=== PATIENT | male | born 1965 | race American Indian/Alaskan Native ===

== ENCOUNTER 2017-12-28 17:59 | Inpatient (IN) | payer BC ==
[2017-12-28 18:27] VITALS: BMI 36.3
[2017-12-28] MEDS ORDERED: Sodium Chloride 0.9% 2,000 ML IV ONE (18:27)
[2017-12-28 18:45] LABS: BASO % 0.2 % (0.0-2.0); EOS # 0.1 K/uL (0.0-0.7); EOS % 0.4 % (0.0-4.0); HEMOGLOBIN 17.4 g/dL (12.0-18.0); LYMPH # 0.8 K/uL (1.0-4.3); MEAN CORPUSCULAR HEMOGLOBIN 30.8 pg (27.0-31.0); MEAN CORPUSCULAR HGB CONC 33.5 g/dL (33.0-37.0); MEAN PLATELET VOLUME 8.6 fL (7.2-11.7); MONO # 1.2 K/uL (0.0-0.8); NEUT # 14.5 K/uL (1.8-7.0); NEUT % 87.4 % (50.0-75.0); PLATELET COUNT 404 K/uL (130-400); RBC 5.63 Mil/uL (4.40-5.90); RED CELL DISTRIBUTION WIDTH 13.6 % (11.5-14.5); WHITE BLOOD COUNT 16.6 K/uL (4.8-10.8)
[2017-12-28 18:57] LABS: ALB/GLOB RATIO 1.3 (1.0-2.1); ALBUMIN 4.7 g/dL (3.5-5.0); CALCIUM 10.1 mg/dl (8.6-10.4)
--- NOTE | 2017-12-28 19:04 | C.PDOC ---
History Of Present Illness 52yo male, with history of epigastric hernia, presents to ED for evaluation stating his hernia "popped out" 4 days ago and he has been unable to reduce it at home. He also reports he started vomiting 4 days ago. Patient denies any fever, chills, diarrhea, weakness, and offers no other medical complaints. Time Seen by Provider: 12/28/17 18:12 Chief Complaint (Nursing): GI Problem History Per: Patient History/Exam Limitations: no limitations Onset/Duration Of Symptoms: Days (4) Current Symptoms Are (Timing): Still Present Location Of Pain/Discomfort: Epigastric Quality Of Discomfort: "Pain" Associated Symptoms: Vomiting. denies: Fever, Chills, Diarrhea Past Medical History Reviewed: Historical Data, Nursing Documentation, Vital Signs Vital Signs: Last Vital Signs Temp 98.1 F 12/28/17 18:22 Pulse 102 H 12/28/17 18:41 Resp 20 12/28/17 18:41 BP 116/65 12/28/17 20:04 Pulse Ox 94 L 12/28/17 19:47 - Medical History PMH: HTN Surgical History: No Surg Hx Family History: States: No Known Family Hx - Social History Hx Alcohol Use: No Hx Substance Use: No Review Of Systems Except As Marked, All Systems Reviewed And Found Negative. Constitutional: Negative for: Fever, Chills Cardiovascular: Negative for: Chest Pain Respiratory: Negative for: Shortness of Breath Gastrointestinal: Positive for: Vomiting, Abdominal Pain Physical Exam - Physical Exam Appears: Non-toxic Skin: Warm, Dry Head: Atraumatic, Normacephalic Eye(s): bilateral: Normal Inspection, PERRL Oral Mucosa: Moist Neck: Normal ROM, Supple Chest: Symmetrical Cardiovascular: Rhythm Regular (+tachycardic), Other (decreased blood pressure of 83/50) Respiratory: Normal Breath Sounds Gastrointestinal/Abdominal: Soft, Tenderness (epigastric tenderness), No Mass, No Guarding, No Rebound, Hernia (epigastric hernia, non-reducible) Extremity: Normal ROM Neurological/Psych: Oriented x3 ED Course And Treatment - Laboratory Results Result Diagrams: 12/28/17 18:39 12/28/17 18:39 Lab Interpretation: Abnormal (Elevated WBC 16.6, BUN 52, Cr 3.9, K+ 3.1,) O2 Sat by Pulse Oximetry: 94 (RA) Progress Note: Patient treated with IV fluids, Zosyn IV and NGT in ED. Obtained 700 ml of bilious gastric contents. - Physician Consult Information Outcome Of Conversation: Case discussed with Dr Hart and Dr Dumont. Patient to be admitted for incarcerated epigstric hernia with hypotension. Medical Decision Making Medical Decision Making: Plan: -- Labs -- IV Fluids -- XR Obstructive series -- CT Abdomen and Pelvis w/ PO & IV contrast [address] Dumont who states he will come to the ER and evaluated patient at bedside. 1914 NG tube successfully placed, 500ml bile removed. [address] Mayo, night time nanny concrete floor installer, who will come and evaluate patient in ER. Disposition - Disposition Disposition: HOSPITALIZED Disposition Time: 20:14 Condition: CRITICAL - POA Present On Arrival: None - Clinical Impression Clinical Impression: Incarcerated epigastric hernia - Scribe Statement The provider has reviewed the documentation as recorded by the Scribe (Sanna Ramos) Provider Attestation: All medical record entries made by the Scribe were at my direction and personally dictated by me. I have reviewed the chart and agree that the record accurately reflects my personal performance of the history, physical exam, medical decision making, and the department course for this patient. I have also personally directed, reviewed, and agree with the discharge instructions and disposition.
[2017-12-28] MEDS ORDERED: Piperacill/Tazo 2.25gm in Dex 2.25 GM/50 ML BAG IVPB STA (19:26)
[2017-12-28 20:23] LABS: INR 1.23 (0.92-1.08); PROTHROMBIN TIME 13.5 SECONDS (9.7-12.2)
[2017-12-28] MEDS ORDERED: Propofol 10 mg/ml Inj (20 ML) ONE (20:30)
[2017-12-28] MEDS ORDERED: Piperacillin/Tazobact 3.375 gm 100 ML IVPB ONE (20:40)
[2017-12-28 20:57] LABS: LYMPHOCYTE 8 % (20-40); MONOCYTE 9 % (0-10); NEUTROPHIL 83 % (50-75); TOTAL CELLS COUNTED 100
[2017-12-28 20:58] LABS: PLATELET ESTIMATE SLIGHTLY INCREASED (NORMAL)
[2017-12-28] MEDS ORDERED: Phenylephrine 10 mg/ml Inj ONE (21:08)
[2017-12-28] MEDS ORDERED: Succinylcholine Chloride 20 mg/ml Syr (5 ml) IV ONE (21:08)
[2017-12-28] MEDS ORDERED: Etomidate 20 mg/10ml Inj IV ONE (21:08)
[2017-12-28] MEDS ORDERED: Rocuronium 10 mg/ml (5 ml) ONE (21:08)
[2017-12-28] MEDS ORDERED: Neostigmine Methylsulfate 3mg/3ml Syringe IV ONE (21:48)
[2017-12-28] MEDS ORDERED: Lactated Ringer's 1,000 ML IV SCH (22:45)
--- NOTE | 2017-12-28 22:51 | PCM.SURG1 ---
Surgeon's Initial Post Op Note - Surgeon's Notes Surgeon: Dr. Dumont Biofuels Production Associate: Dr. Quintero PGY3 Type of Anesthesia: General Endo Pre-Operative Diagnosis: Incarcerated Hernia Operative Findings: See operative dictation Post-Operative Diagnosis: Strangulated Hernia with necrotic bowel Operation Performed: Ventral Hernia repair with small bowel resection and anastamoses. Specimen/Specimens Removed: Small bowel Estimated Blood Loss: EBL {In ML}: 150 Blood Products Given: N/A Drains Used: No Drains Post-Op Condition: Fair Date of Surgery/Procedure: 12/28/17 Time of Surgery/Procedure: 22:51
--- NOTE | 2017-12-28 22:54 | CP.PCM.CON ---
History of Present Illness - History of Present Illness History of Present Illness: General Surgery COnsult note for Dr. Dumont This is a 52M weith a PMH of HTN who presented with food intolerance since Tuesday no BM or flatus since Tuesday. In the ED he was noted to have an incarcerated ventral hernia and he was hypotensive with systolic blood pressures in the 80s. During my exam he complained of abdominal pain and nausea and vomitying. No fevers chills or chest pain. He reports history of a hernia for one year hwoeverit was always reduicible. PMH: See above PSH: Denies Social: Denies vices ALL: NKDA Review of Systems - Review of Systems All systems: reviewed and no additional remarkable complaints except - Gastrointestinal Gastrointestinal: Abdominal Pain, Bloating, Constipation, Cramping Past Patient History - Past Medical History & Family History Past Medical History?: Yes - Past Social History Smoking Status: Never Smoked - CARDIAC Hx Hypertension: Yes - GASTROINTESTINAL Other/Comment: Abdominal hernia x1 year. - PSYCHIATRIC Hx Substance Use: No - SURGICAL HISTORY Hx Surgeries: No - ANESTHESIA Hx Anesthesia: No Hx Anesthesia Reactions: No Hx Malignant Hyperthermia: No Has any member of the family had a problem w/ anesthesia?: No Meds Allergies/Adverse Reactions: Allergies Allergy/AdvReac Type Severity Reaction Status Date / Time No Known Allergies Allergy Verified 12/28/17 18:28 - Medications Medications: Current Medications Heparin Sodium (Porcine) (Heparin) 5,000 units SC Q8 [facility] Piperacillin Sod/Tazobactam Sod (Zosyn 3.375 Gm Iv Premix) 3.375 gm in 50 mls @ 100 mls/hr IVPB Q8H [facility] PRN Reason: Protocol Lactated Ringer's (Lactated Ringer's) 1,000 mls @ 150 mls/hr IV .Q6H40M [facility] Pantoprazole Sodium (Protonix Inj) 40 mg IVP DAILY [facility] Physical Exam - Constitutional Appears: Non-toxic, No Acute Distress - Head Exam Head Exam: ATRAUMATIC, NORMOCEPHALIC - Eye Exam Eye Exam: EOMI - ENT Exam ENT Exam: Mucous Membranes Moist - Respiratory Exam Respiratory Exam: NORMAL BREATHING PATTERN - GI/Abdominal Exam GI & Abdominal Exam: Distended, Hernia, Tenderness. absent: Rebound, Rigid - Extremities Exam Extremities exam: Positive for: normal inspection - Neurological Exam Neurological exam: Alert, Oriented x3 - Psychiatric Exam Psychiatric exam: Normal Affect, Normal Mood - Skin Skin Exam: Dry, Erythema (over apex of hernia), Intact Results - Vital Signs Recent Vital Signs: Last Vital Signs Temp 98.1 F 12/28/17 18:22 Pulse 102 H 12/28/17 18:41 Resp 20 12/28/17 18:41 BP 116/65 12/28/17 20:04 Pulse Ox 94 L 12/28/17 20:15 - Labs Result Diagrams: 12/28/17 18:39 12/28/17 18:39 Labs: Laboratory Results - last 24 hr 12/28/17 12/28/17 12/28/17 18:39 18:39 20:02 WBC 16.6 H RBC 5.63 Hgb 17.4 Hct 51.8 H MCV 92.0 MCH 30.8 MCHC 33.5 RDW 13.6 Plt Count 404 H MPV 8.6 Neut % (Auto) 87.4 H Lymph % (Auto) 5.0 L [place] % (Auto) 7.0 Eos % (Auto) 0.4 Baso % (Auto) 0.2 Neut # (Auto) 14.5 H Lymph # (Auto) 0.8 L [place] # (Auto) 1.2 H Eos # (Auto) 0.1 Baso # (Auto) 0.0 Neutrophils % (Manual) 83 H Lymphocytes % (Manual) 8 L Monocytes % (Manual) 9 Platelet Estimate Slightly increased H PT INR APTT Sodium 140 Potassium 3.1 L Chloride 88 L Carbon Dioxide 30 Anion Gap 24 H BUN 52 H Creatinine 3.9 H Est GFR ( Amer) 20 Est GFR (Non-Af Amer) 16 Random Glucose 148 H Calcium 10.1 Total Bilirubin 1.4 H AST 38 ALT 62 Alkaline Phosphatase 83 Total Protein 8.4 H Albumin 4.7 Globulin 3.7 Albumin/Globulin Ratio 1.3 Lipase 102 Blood Type B POSITIVE Antibody Screen Negative 12/28/17 20:02 WBC RBC Hgb Hct MCV MCH MCHC RDW Plt Count MPV Neut % (Auto) Lymph % (Auto) [place] % (Auto) Eos % (Auto) Baso % (Auto) Neut # (Auto) Lymph # (Auto) [place] # (Auto) Eos # (Auto) Baso # (Auto) Neutrophils % (Manual) Lymphocytes % (Manual) Monocytes % (Manual) Platelet Estimate PT 13.5 H INR 1.23 H APTT 19 L Sodium Potassium Chloride Carbon Dioxide Anion Gap BUN Creatinine Est GFR ( Amer) Est GFR (Non-Af Amer) Random Glucose Calcium Total Bilirubin AST ALT Alkaline Phosphatase Total Protein Albumin Globulin Albumin/Globulin Ratio Lipase Blood Type Antibody Screen Assessment & Plan - Assessment and Plan (Free Text) Assessment: 52M with incacerated ventral hernia NPO 1 PRBC on standby OR emergently for hernia repair D/W Dr Tim Quintero PGY3
[2017-12-28] MEDS ORDERED: Magnesium Sulfate 1 gm in D5W 1 GM/100 ML BAG IVPB ONE (23:00)
[2017-12-28 23:21] LABS: BASO % 0.1 % (0.0-2.0); EOS % 0.2 % (0.0-4.0); LYMPH # 0.9 K/uL (1.0-4.3); MEAN CELL VOLUME 93.2 fL (80.0-94.0); MEAN CORPUSCULAR HEMOGLOBIN 31.3 pg (27.0-31.0); MEAN CORPUSCULAR HGB CONC 33.6 g/dL (33.0-37.0); MEAN PLATELET VOLUME 9.1 fL (7.2-11.7); MONO # 1.2 K/uL (0.0-0.8); MONO % 6.7 % (0.0-10.0); NEUT # 16.1 K/uL (1.8-7.0); NRBC % 0.1 % (0.0-2.0); PLATELET COUNT 298 K/uL (130-400); RBC 4.84 Mil/uL (4.40-5.90); RED CELL DISTRIBUTION WIDTH 13.7 % (11.5-14.5); WHITE BLOOD COUNT 18.3 K/uL (4.8-10.8)
[2017-12-28 23:24] LABS: HEMOGLOBIN 15.1 g/dL (12.0-18.0)
[2017-12-28] MEDS: Lactated Ringer's 1,000 ML IV SCH (23:28)
[2017-12-28 23:35] LABS: ALB/GLOB RATIO 1.2 (1.0-2.1); ALBUMIN 3.3 g/dL (3.5-5.0); CALCIUM 8.6 mg/dl (8.6-10.4)
[2017-12-28 23:46] LABS: LYMPHOCYTE 6 % (20-40); MONOCYTE 7 % (0-10); NEUTROPHIL 87 % (50-75); PLATELET CLUMPS PRESENT; PLATELET ESTIMATE NORMAL (NORMAL); TOTAL CELLS COUNTED 100
--- NOTE | 2017-12-28 23:47 | CP.PCM.HP ---
History of Present Illness - History of Present Illness History of Present Illness: 52.yo, male with PMH Hypertension Abdominal Hernia thatwas asymptomatic noted last year Patient reports pain in the belly, felt hernia popped, but wont reduce this time , then he started vomiting, family advised him to g to ER but patient refuses. Patient comtinue to have pain and vomiting, with no fever, no cough no chest pain no syncope, patient called me and advised him to go to ER. In ER patient was found to have incarcerated abdominal hernia with hypotension with svere dehydrationand acute renal insufficiency. Patient was placed on IVF , surgery and ICU called. Despite of this condition, Patient is conversant and awake alert. patient was admitted for further management PMH as above Hypertension Abdominal hernia Surgery none NKDA BP meds non etoh non smoker lives with family Present on Admission - Present on Admission Any Indicators Present on Admission: No History of DVT/PE: No History of Uncontrolled Diabetes: No Urinary Catheter: No Decubitus Ulcer Present: No Review of Systems - Constitutional Constitutional: Weakness. absent: Chills, Fever - EENT Eyes: absent: Other Visual Disturbances Ears: absent: Ear Discharge, Ear Pain Nose/Mouth/Throat: absent: Nasal Congestion, Sinus Pain, Dysphagia - Cardiovascular Cardiovascular: Lightheadedness. absent: Chest Pain, Diaphoresis, Syncope - Respiratory Respiratory: absent: Cough, Dyspnea, Chest Congestion - Gastrointestinal Gastrointestinal: Abdominal Pain, Change in Bowel Habits, Constipation, Vomiting. absent: Diarrhea, Dysphagia, Melena, Odynophagia - Genitourinary Genitourinary: absent: Difficulty Urinating - Musculoskeletal Musculoskeletal: absent: Abnormal Gait, Deformity, Joint Swelling - Integumentary Integumentary: Lesions. absent: Skin Ulcer, Sores, Unusual Bruising - Neurological Neurological: Abnormal Hearing, Abnormal Speech, Behavioral Changes, Convulsions , Dizziness, Headaches. absent: Syncope - Psychiatric Psychiatric: Auditory Hallucinations, Confusion, Depression. absent: Behavioral Changes - Hematologic/Lymphatic Hematologic: Easy Bleeding. absent: Easy Bruising Past Patient History - Past Medical History & Family History Past Medical History?: Yes - Past Social History Smoking Status: Never Smoked - CARDIAC Hx Hypertension: Yes - MUSCULOSKELETAL/RHEUMATOLOGICAL Hx Falls: No - GASTROINTESTINAL Other/Comment: Abdominal hernia x1 year. - PSYCHIATRIC Hx Substance Use: No - SURGICAL HISTORY Hx Surgeries: No - ANESTHESIA Hx Anesthesia: No Hx Anesthesia Reactions: No Hx Malignant Hyperthermia: No Has any member of the family had a problem w/ anesthesia?: No Meds Allergies/Adverse Reactions: Allergies Allergy/AdvReac Type Severity Reaction Status Date / Time No Known Allergies Allergy Verified 12/28/17 18:28 Physical Exam - Constitutional Appears: Other (patient is in ER bed, conversant answers questions appropriately , awake alert oriented x3 ) - Head Exam Head Exam: ATRAUMATIC, NORMOCEPHALIC - Eye Exam Eye Exam: absent: Nystagmus, Periorbital swelling - ENT Exam ENT Exam: Mucous Membranes Dry - Neck Exam Neck exam: Positive for: Full Rom. Negative for: Meningismus - Respiratory Exam Respiratory Exam: Clear to Auscultation Bilateral, NORMAL BREATHING PATTERN - Cardiovascular Exam Cardiovascular Exam: REGULAR RHYTHM - GI/Abdominal Exam GI & Abdominal Exam: Soft, Tenderness (epigastric hernia ,no discolored skin) - Back Exam Back exam: absent: rash noted - Neurological Exam Neurological exam: Alert, Normal Gait, Oriented x3 - Psychiatric Exam Psychiatric exam: Normal Affect, Normal Mood Results - Vital Signs Recent Vital Signs: Last Vital Signs Temp 98.1 F 12/28/17 22:49 Pulse 71 12/28/17 23:10 Resp 21 12/28/17 23:10 BP 116/64 12/28/17 23:07 Pulse Ox 99 12/28/17 23:10 - Labs Result Diagrams: 12/29/17 05:24 12/29/17 05:24 Labs: Laboratory Results - last 24 hr 12/28/17 12/28/17 12/28/17 18:39 18:39 20:02 WBC 16.6 H RBC 5.63 Hgb 17.4 Hct 51.8 H MCV 92.0 MCH 30.8 MCHC 33.5 RDW 13.6 Plt Count 404 H MPV 8.6 Neut % (Auto) 87.4 H Lymph % (Auto) 5.0 L [place] % (Auto) 7.0 Eos % (Auto) 0.4 Baso % (Auto) 0.2 Neut # (Auto) 14.5 H Lymph # (Auto) 0.8 L [place] # (Auto) 1.2 H Eos # (Auto) 0.1 Baso # (Auto) 0.0 Neutrophils % (Manual) 83 H Lymphocytes % (Manual) 8 L Monocytes % (Manual) 9 Platelet Estimate Slightly increased H Plt Clumps, EDTA PT INR APTT Sodium 140 Potassium 3.1 L Chloride 88 L Carbon Dioxide 30 Anion Gap 24 H BUN 52 H Creatinine 3.9 H Est GFR ( Amer) 20 Est GFR (Non-Af Amer) 16 Random Glucose 148 H Calcium 10.1 Phosphorus Magnesium Total Bilirubin 1.4 H AST 38 ALT 62 Alkaline Phosphatase 83 Total Protein 8.4 H Albumin 4.7 Globulin 3.7 Albumin/Globulin Ratio 1.3 Lipase 102 Blood Type B POSITIVE Antibody Screen Negative 12/28/17 12/28/17 12/28/17 20:02 23:18 23:18 WBC 18.3 H RBC 4.84 Hgb 15.1 D Hct 45.1 MCV 93.2 MCH 31.3 H MCHC 33.6 RDW 13.7 Plt Count 298 D MPV 9.1 Neut % (Auto) 88.0 H Lymph % (Auto) 5.0 L [place] % (Auto) 6.7 Eos % (Auto) 0.2 Baso % (Auto) 0.1 Neut # (Auto) 16.1 H Lymph # (Auto) 0.9 L [place] # (Auto) 1.2 H Eos # (Auto) 0.0 Baso # (Auto) 0.0 Neutrophils % (Manual) 87 H Lymphocytes % (Manual) 6 L Monocytes % (Manual) 7 Platelet Estimate Normal Plt Clumps, EDTA Present PT 13.5 H INR 1.23 H APTT 19 L Sodium 140 Potassium 3.5 L Chloride 96 L Carbon Dioxide 32 H Anion Gap 15 BUN 48 H Creatinine 2.8 H Est GFR ( Amer) 29 Est GFR (Non-Af Amer) 24 Random Glucose 127 H Calcium 8.6 Phosphorus 5.6 H Magnesium 1.9 Total Bilirubin 1.5 H AST 32 ALT 54 Alkaline Phosphatase 59 Total Protein 6.1 L Albumin 3.3 L D Globulin 2.8 Albumin/Globulin Ratio 1.2 Lipase Blood Type Antibody Screen Assessment & Plan - Assessment and Plan (Free Text) Assessment: 52 y.o.with PMH of Hypertension ventral hernia came due to abdominal pain with 4 days vomiting , found to have Incarcerated ventral Hernia- surgical consultation, Hypotension ,Dehydration with Acute Renal Insufficiency , from GI loss-IVF as started by ER ,ICU care Hypokalemia (3.1 to 3.5 )with Acute Renal Insufficiency further observation GI prophylaxis hold BP meds DVT prophylaxis accordingly discussion with ICU surgery ,patient and family by bedside - Date & Time Date: 12/28/17 Time: 08:00
--- NOTE | 2017-12-28 23:50 | CP.PCM.CON ---
History of Present Illness - History of Present Illness History of Present Illness: Chief complaint: Abdominal pain HPI: 52-year-old male with a history of hypertension, and also abdominal hernia. Patient was doing well. 4 days ago he concerned about his hernia, which was not able to reduce. He started having some discomfort and pain. 60 continues to have increasing pain. The hernia was not reducible, he was very concerned and came to the emergency room today. He was also having vomiting, nausea. Patient in the emergency room was evaluated. Noted to have incarcerated abdominal hernia, and associated with the dehydration and hypertension as well as renal insufficiency. Patient immediately underwent urgent surgical evaluation. He received intravenous IV fluid. Patient went to operating room for reduction of incarcerated epigastric hernia, and also partial resection of the small bowel secondary to the ischemic changes. Postoperatively patient vital signs stable. He is awake and responding. Under sedation now Past medical history: Hypertension Allergy no known drug allergy Personal history nonsmoker nonalcoholic No surgical history in the past. On medication for blood pressure. Review of system noted from the chart on examination vital signs stable. Chest good air entry bilaterally regular heart sound abdomen postoperative Labs reviewed in Stable otherwise Assessment and recommendation: 52-year-old male with a history of hypertension admitted to the hospital with acute intestinal obstruction secondary to incarcerated ventral hernia and gangrene of the small bowel status post a surgical intervention. Acute renal failure, acute dehydration. IV fluid and IV fluid management the pain management the bronchodilators antibiotic. Incentive spirometer. Will follow-up the patient. ICU management. Past Patient History - Past Medical History & Family History Past Medical History?: Yes - Past Social History Smoking Status: Never Smoked - CARDIAC Hx Hypertension: Yes - MUSCULOSKELETAL/RHEUMATOLOGICAL Hx Falls: No - GASTROINTESTINAL Other/Comment: Abdominal hernia x1 year. - PSYCHIATRIC Hx Substance Use: No - SURGICAL HISTORY Hx Surgeries: No - ANESTHESIA Hx Anesthesia: No Hx Anesthesia Reactions: No Hx Malignant Hyperthermia: No Has any member of the family had a problem w/ anesthesia?: No Meds Allergies/Adverse Reactions: Allergies Allergy/AdvReac Type Severity Reaction Status Date / Time No Known Allergies Allergy Verified 12/28/17 18:28 - Medications Medications: Current Medications Heparin Sodium (Porcine) (Heparin) 5,000 units SC Q8 [facility] Hydromorphone HCl (Dilaudid) 0.5 mg IVP Q4H PRN PRN Reason: Pain, moderate (4-7) Piperacillin Sod/Tazobactam Sod (Zosyn 3.375 Gm Iv Premix) 3.375 gm in 50 mls @ 100 mls/hr IVPB Q8H [facility] PRN Reason: Protocol Lactated Ringer's (Lactated Ringer's) 1,000 mls @ 150 mls/hr IV .Q6H40M [facility] Last Admin: 12/28/17 23:28 Dose: 150 mls/hr Magnesium Sulfate/Dextrose (Magnesium Sulfate 1 Gm/100 Ml D5w) 1 gm in 100 mls @ 200 mls/hr IVPB ONCE ONE Stop: 12/29/17 00:18 Pantoprazole Sodium (Protonix Inj) 40 mg IVP DAILY [facility] Results - Vital Signs Recent Vital Signs: Last Vital Signs Temp 98.1 F 12/28/17 22:49 Pulse 71 12/28/17 23:10 Resp 21 12/28/17 23:10 BP 116/64 12/28/17 23:07 Pulse Ox 99 12/28/17 23:10 - Labs Result Diagrams: 12/28/17 23:18 12/28/17 23:18 Labs: Laboratory Results - last 24 hr 12/28/17 12/28/17 12/28/17 18:39 18:39 20:02 WBC 16.6 H RBC 5.63 Hgb 17.4 Hct 51.8 H MCV 92.0 MCH 30.8 MCHC 33.5 RDW 13.6 Plt Count 404 H MPV 8.6 Neut % (Auto) 87.4 H Lymph % (Auto) 5.0 L [place] % (Auto) 7.0 Eos % (Auto) 0.4 Baso % (Auto) 0.2 Neut # (Auto) 14.5 H Lymph # (Auto) 0.8 L [place] # (Auto) 1.2 H Eos # (Auto) 0.1 Baso # (Auto) 0.0 Neutrophils % (Manual) 83 H Lymphocytes % (Manual) 8 L Monocytes % (Manual) 9 Platelet Estimate Slightly increased H Plt Clumps, EDTA PT INR APTT Sodium 140 Potassium 3.1 L Chloride 88 L Carbon Dioxide 30 Anion Gap 24 H BUN 52 H Creatinine 3.9 H Est GFR ( Amer) 20 Est GFR (Non-Af Amer) 16 Random Glucose 148 H Calcium 10.1 Phosphorus Magnesium Total Bilirubin 1.4 H AST 38 ALT 62 Alkaline Phosphatase 83 Total Protein 8.4 H Albumin 4.7 Globulin 3.7 Albumin/Globulin Ratio 1.3 Lipase 102 Blood Type B POSITIVE Antibody Screen Negative 12/28/17 12/28/17 12/28/17 20:02 23:18 23:18 WBC 18.3 H RBC 4.84 Hgb 15.1 D Hct 45.1 MCV 93.2 MCH 31.3 H MCHC 33.6 RDW 13.7 Plt Count 298 D MPV 9.1 Neut % (Auto) 88.0 H Lymph % (Auto) 5.0 L [place] % (Auto) 6.7 Eos % (Auto) 0.2 Baso % (Auto) 0.1 Neut # (Auto) 16.1 H Lymph # (Auto) 0.9 L [place] # (Auto) 1.2 H Eos # (Auto) 0.0 Baso # (Auto) 0.0 Neutrophils % (Manual) 87 H Lymphocytes % (Manual) 6 L Monocytes % (Manual) 7 Platelet Estimate Normal Plt Clumps, EDTA Present PT 13.5 H INR 1.23 H APTT 19 L Sodium 140 Potassium 3.5 L Chloride 96 L Carbon Dioxide 32 H Anion Gap 15 BUN 48 H Creatinine 2.8 H Est GFR ( Amer) 29 Est GFR (Non-Af Amer) 24 Random Glucose 127 H Calcium 8.6 Phosphorus 5.6 H Magnesium 1.9 Total Bilirubin 1.5 H AST 32 ALT 54 Alkaline Phosphatase 59 Total Protein 6.1 L Albumin 3.3 L D Globulin 2.8 Albumin/Globulin Ratio 1.2 Lipase Blood Type Antibody Screen
[2017-12-29] MEDS: HYDROmorphone 0.5 mg/0.5 ml ISec IVP PRN ×3 (00:03→14:41)
[2017-12-29] MEDS: Piperacill/Tazo 3.375gm in Dex 3.375 GM/50 ML BAG IVPB SCH ×3 (05:03→21:43)
[2017-12-29] MEDS: Lactated Ringer's 1,000 ML IV SCH ×2 (05:23→21:17)
[2017-12-29 05:28] LABS: BASO % 0.2 % (0.0-2.0); EOS # 0.1 K/uL (0.0-0.7); EOS % 0.6 % (0.0-4.0); HEMOGLOBIN 14.2 g/dL (12.0-18.0); LYMPH # 0.5 K/uL (1.0-4.3); LYMPH % 3.5 % (20.0-40.0); MEAN CELL VOLUME 90.4 fL (80.0-94.0); MEAN CORPUSCULAR HEMOGLOBIN 30.9 pg (27.0-31.0); MEAN CORPUSCULAR HGB CONC 34.1 g/dL (33.0-37.0); MEAN PLATELET VOLUME 8.3 fL (7.2-11.7); MONO # 1.2 K/uL (0.0-0.8); MONO % 8.6 % (0.0-10.0); NEUT # 12.4 K/uL (1.8-7.0); NEUT % 87.1 % (50.0-75.0); PLATELET COUNT 303 K/uL (130-400); RED CELL DISTRIBUTION WIDTH 13.6 % (11.5-14.5); WHITE BLOOD COUNT 14.2 K/uL (4.8-10.8)
--- NOTE | 2017-12-29 05:31 | OP ---
PROCEDURE DATE: 12/28/2017 PREOPERATIVE DIAGNOSES: Small bowel obstruction, incarcerated hernia. PROCEDURES CARRIED OUT: 1. Repair of incarcerated hernia. 2. Small bowel resection with anastomosis. SURGEON: Hung Dumont Jr., MD ORDNANCE EQUIPMENT WORKER: Brett Quintero DO ANESTHESIOLOGIST: Yuri Colindres MD ESTIMATED BLOOD LOSS: 150 mL. INDICATIONS: A 52-year-old man with 4-day history of abdominal pain, presents with intestinal obstruction and incarcerated bowel. OPERATIVE FINDINGS: There was not more than a knuckle, but a loop of small bowel that was incarcerated. It was gangrenous. This was resected. A primary anastomosis was carried out. After this had been done, we mobilized small bowel on both sides to ensure that there were no other areas of concern. Then, we carried out the anastomosis. We then dropped this back into the peritoneal cavity. There was a small amount of acidic fluid, which was cultured. The rest of the intraoperative findings were unremarkable. We were unable to conduct a full abdominal exploration through limited size of our incision. Nonetheless, we were able to identify clearly ends of the hernia defect. The absence of any other bowel was identified and after this had been done, we then closed this with multiple interrupted sutures of Prolene to close the fascia. No mesh was used because of the bowel contamination. The bowel was decompressed also at the time of the surgery. OPERATION CARRIED OUT: 1. Repair of incarcerated ventral hernia. 2. Small bowel resection with anastomosis. Hung Dumont Jr., MD cc:
[2017-12-29 05:44] LABS: ALB/GLOB RATIO 1.1 (1.0-2.1); ALBUMIN 3.2 g/dL (3.5-5.0); CALCIUM 8.2 mg/dl (8.6-10.4)
[2017-12-29 06:14] LABS: BANDS 2 % (0-2); EOSINOPHIL 1 % (0-4); LYMPHOCYTE 4 % (20-40); MONOCYTE 9 % (0-10); NEUTROPHIL 84 % (50-75); TOTAL CELLS COUNTED 100
[2017-12-29 06:15] LABS: PLATELET ESTIMATE NORMAL (NORMAL)
--- NOTE | 2017-12-29 07:17 | CP.PCM.PN ---
Subjective - Date & Time of Evaluation Date of Evaluation: 12/29/17 Time of Evaluation: 07:13 - Subjective Subjective: Surgery: Dr. Dumont Pt seen and examined. Resting comfortably in bed. Has complaints of pain. No N/ V. Objective - Vital Signs/Intake and Output Vital Signs (last 24 hours): Temp Pulse Resp BP Pulse Ox 98.8 F 85 20 113/63 98 12/29/17 06:04 12/29/17 06:00 12/29/17 06:00 12/29/17 06:00 12/29/17 06:00 Intake and Output: 12/29/17 12/29/17 06:59 18:59 Intake Total 5050 Output Total 1425 Balance 3625 - Medications Medications: Current Medications Heparin Sodium (Porcine) (Heparin) 5,000 units SC Q8 [facility] Last Admin: 12/29/17 05:03 Dose: 5,000 units Hydromorphone HCl (Dilaudid) 0.5 mg IVP Q3H PRN PRN Reason: Pain, moderate (4-7) Piperacillin Sod/Tazobactam Sod (Zosyn 3.375 Gm Iv Premix) 3.375 gm in 50 mls @ 100 mls/hr IVPB Q8H [facility] PRN Reason: Protocol Last Admin: 12/29/17 05:03 Dose: 100 mls/hr Lactated Ringer's (Lactated Ringer's) 1,000 mls @ 150 mls/hr IV .Q6H40M [facility] Last Admin: 12/29/17 05:23 Dose: Not Given Pantoprazole Sodium (Protonix Inj) 40 mg IVP DAILY [facility] - Labs Labs: 12/29/17 05:24 12/29/17 05:24 PT 13.5 SECONDS (9.7-12.2) H 12/28/17 20:02 INR 1.23 (0.92-1.08) H 12/28/17 20:02 APTT 24 SECONDS (21-34) D 12/29/17 05:24 - Constitutional Appears: Non-toxic, No Acute Distress - Head Exam Head Exam: ATRAUMATIC, NORMOCEPHALIC - Eye Exam Eye Exam: EOMI - ENT Exam ENT Exam: Mucous Membranes Moist - Neck Exam Neck Exam: Full ROM - Respiratory Exam Respiratory Exam: NORMAL BREATHING PATTERN. absent: Accessory Muscle Use, Respiratory Distress - GI/Abdominal Exam GI & Abdominal Exam: Soft, Tenderness (barber-incisional ). absent: Distended, Firm, Guarding, Rigid, Rebound - Extremities Exam Extremities Exam: absent: Calf Tenderness - Neurological Exam Neurological Exam: Alert, Awake, Oriented x3 - Psychiatric Exam Psychiatric exam: Normal Affect, Normal Mood Assessment and Plan - Assessment and Plan (Free Text) Assessment: 52M w. strangulated ventral hernia, s/p primary repair with small bowel resection, POD#1 -NPO w. Ice chips -IVF -pain management -c/w abx -OOB to chair -IS use -D/C melvin and NGT -Monitor bowel fxn -GI/DVT ppx Zemaitis PGY4
--- NOTE | 2017-12-29 10:17 | CP.PCM.PN ---
Subjective - Date & Time of Evaluation Date of Evaluation: 12/29/17 Time of Evaluation: 10:58 - Subjective Subjective: Patient chart reviewed had surgery for incarcerated hernia-with resection of gangrenous portion placed in ICU IVF hydration laboratory noted with improvement in Creatinine on antibiotic. WBC coming down vitals on low side, with improvement , off BP meds Patient seen, post op nut much complaints, still NPO on NG suction patient conversant and aware of condition as discussed vomitng resolved , pain reduced Objective - Vital Signs/Intake and Output Vital Signs (last 24 hours): Temp Pulse Resp BP Pulse Ox 98.8 F 96 H 30 H 108/59 L 96 12/29/17 06:04 12/29/17 09:30 12/29/17 09:30 12/29/17 09:00 12/29/17 09:30 Intake and Output: 12/29/17 12/29/17 06:59 18:59 Intake Total 5050 450 Output Total 1425 350 Balance 3625 100 - Medications Medications: Current Medications Heparin Sodium (Porcine) (Heparin) 5,000 units SC Q8 [facility] Last Admin: 12/29/17 05:03 Dose: 5,000 units Hydromorphone HCl (Dilaudid) 0.5 mg IVP Q3H PRN PRN Reason: Pain, moderate (4-7) Piperacillin Sod/Tazobactam Sod (Zosyn 3.375 Gm Iv Premix) 3.375 gm in 50 mls @ 100 mls/hr IVPB Q8H [facility] PRN Reason: Protocol Last Admin: 12/29/17 05:03 Dose: 100 mls/hr Lactated Ringer's (Lactated Ringer's) 1,000 mls @ 150 mls/hr IV .Q6H40M [facility] Last Admin: 12/29/17 05:23 Dose: Not Given Pantoprazole Sodium (Protonix Inj) 40 mg IVP DAILY [facility] Last Admin: 12/29/17 09:13 Dose: 40 mg - Labs Labs: 12/29/17 05:24 12/29/17 05:24 PT 13.5 SECONDS (9.7-12.2) H 12/28/17 20:02 INR 1.23 (0.92-1.08) H 12/28/17 20:02 APTT 24 SECONDS (21-34) D 12/29/17 05:24 - Constitutional Appears: Non-toxic - Head Exam Head Exam: ATRAUMATIC, NORMOCEPHALIC - Eye Exam Eye Exam: Normal appearance. absent: Nystagmus - ENT Exam ENT Exam: Mucous Membranes Moist - Neck Exam Neck Exam: Full ROM. absent: Tenderness - Respiratory Exam Respiratory Exam: Clear to Ausculation Bilateral, NORMAL BREATHING PATTERN - Cardiovascular Exam Cardiovascular Exam: REGULAR RHYTHM - GI/Abdominal Exam GI & Abdominal Exam: Soft (with small bandage over post op site no bleeding , on ng suction). absent: Distended, Guarding - Extremities Exam Extremities Exam: Full ROM. absent: Joint Swelling, Pedal Edema - Back Exam Back Exam: absent: tenderness - Neurological Exam Neurological Exam: Alert, Awake, Oriented x3 (in ICU bed ) - Psychiatric Exam Psychiatric exam: Normal Affect, Normal Mood - Skin Skin Exam: Intact, Normal Color Assessment and Plan - Assessment and Plan (Free Text) Assessment: Patient with PMH of Hypertension and Ventral Hernia, admitted for Incarcerated Hernia with leukocytosis post op day 1 , afebrile, on antibiotic , ICU care with hypotension from dehydration from GI loss, Acute renal Failure Hypokalemia improving with hydration clinically awake alert with good prognosis further observation and ICU care condition and plan discussed with patient
--- NOTE | 2017-12-29 13:02 | CP.CCUPN ---
<Zarina So - Last Filed: 12/29/17 12:59> CCU Subjective - Physician Review Subjective (Free Text): 12/29/17 12:59 Pt seen and examined at bedside this morning. No acute events overnight. This morning, pt had NG tube in place draining billious fluid. Pt also had melvin in place. Patient complained of mild abd discomfort but denied having any nausea. Patient not passing gas or had a bowel movement. Denies having any F/C, LE swelling or pain, SOB, CP. Critical Care Time Spent (in minutes): 45 CCU Objective - Vital Signs / Intake & Output Vital Signs (Last 4 hours): Vital Signs Pulse Resp BP Pulse Ox 12/29/17 12:30 101 H 21 94 L 12/29/17 12:00 103 H 22 101/60 92 L 12/29/17 11:30 100 H 31 H 95 12/29/17 11:00 100 H 32 H 103/60 95 12/29/17 10:30 99 H 28 H 95 12/29/17 10:00 96 H 31 H 110/57 L 96 12/29/17 09:30 96 H 30 H 96 12/29/17 09:00 94 H 28 H 108/59 L 94 L Intake and Output (Last 8hrs): Intake & Output 12/28/17 12/29/17 12/29/17 22:59 06:59 14:59 Intake Total 4000 1050 900 Output Total 250 1175 520 Balance 3750 -125 380 Weight 315 lb 314 lb 12.8 oz Intake: IV 4000 Intake, IV Amount 1050 900 Left Forearm 1050 900 Output: Gastric Amount 400 120 Left Nares 400 120 Urine 250 775 400 Urethral (Melvin) 775 400 Other: # Voids Urine, Voided 0 - Physical Exam Head: Positive for: Atraumatic, Normocephalic Mouth: Positive for: Moist Mucous Membranes Respiratory/Chest: Positive for: Clear to Auscultation. Negative for: Respiratory Distress, Accessory Muscle Use, Wheezes, Rales, Rhonchi Cardiovascular: Positive for: Regular Rate and Rhythm, Normal S1, S2. Negative for: Murmurs, Rub, Gallop, Muffled Abdomen: Positive for: Normal Bowel Sounds. Negative for: Tenderness, Distention, Peritoneal Signs, Rebound, Guarding Lower Extremity: Negative for: Edema, CALF TENDERNESS Neurological: Positive for: GCS=15, Speech Normal Skin: Positive for: Warm, Dry, Normal Color. Negative for: Rashes Psychiatric: Positive for: Alert, Oriented x 3, Normal Insight, Normal Concentration - Medications Active Medications: Active Medications Generic Name Dose Route Start Last Admin Trade Name Freq PRN Reason Stop Dose Admin Heparin Sodium (Porcine) 5,000 units 12/29/17 06:00 12/29/17 05:03 Heparin SC 5,000 units Q8 MOHSEN Administration Hydromorphone HCl 0.5 mg 12/29/17 06:11 Dilaudid IVP Q3H PRN Pain, moderate (4-7) Piperacillin Sod/Tazobactam Sod 3.375 gm in 50 mls @ 100 mls/hr 12/29/17 05: 00 12/29/17 12:13 Zosyn 3.375 Gm Iv Premix IVPB 100 mls/hr Q8H MOHSEN Administration Protocol Lactated Ringer's 1,000 mls @ 150 mls/hr 12/28/17 22:45 12/29/17 05:23 Lactated Ringer's IV Not Given .Q6H40M MOHSEN Pantoprazole Sodium 40 mg 12/29/17 10:00 12/29/17 09:13 Protonix Inj IVP 40 mg DAILY MOHSEN Administration - Patient Studies Lab Studies: Microbiology Studies 12/29/17 06:31 MRSA Culture (Admit) - Final Nose Lab Studies 12/29/17 12/29/17 12/29/17 Range/Units 05:24 05:24 05:24 WBC 14.2 H (4.8-10.8) K/uL RBC 4.60 (4.40-5.90) Mil/uL Hgb 14.2 (12.0-18.0) g/dL Hct 41.6 (35.0-51.0) % MCV 90.4 D (80.0-94.0) fL MCH 30.9 (27.0-31.0) pg MCHC 34.1 (33.0-37.0) g/dL RDW 13.6 (11.5-14.5) % Plt Count 303 (130-400) K/uL MPV 8.3 (7.2-11.7) fL Neut % (Auto) 87.1 H (50.0-75.0) % Lymph % (Auto) 3.5 L (20.0-40.0) % [place] % (Auto) 8.6 (0.0-10.0) % Eos % (Auto) 0.6 (0.0-4.0) % Baso % (Auto) 0.2 (0.0-2.0) % Neut # (Auto) 12.4 H (1.8-7.0) K/uL Lymph # (Auto) 0.5 L (1.0-4.3) K/uL [place] # (Auto) 1.2 H (0.0-0.8) K/uL Eos # (Auto) 0.1 (0.0-0.7) K/uL Baso # (Auto) 0.0 (0.0-0.2) K/uL Neutrophils % (Manual) 84 H (50-75) % Band Neutrophils % 2 (0-2) % Lymphocytes % (Manual) 4 L (20-40) % Monocytes % (Manual) 9 (0-10) % Eosinophils % (Manual) 1 (0-4) % Platelet Estimate Normal (NORMAL) Plt Clumps, EDTA PT (9.7-12.2) SECONDS INR (0.92-1.08) APTT 24 D (21-34) SECONDS Sodium 137 (132-148) mmol/L Potassium 3.5 L (3.6-5.2) mmol/L Chloride 99 (98-107) mmol/L Carbon Dioxide 29 (22-30) mmol/L Anion Gap 13 (10-20) BUN 42 H (9-20) mg/dL Creatinine 1.8 H (0.8-1.5) mg/dL Est GFR ( Amer) 48 Est GFR (Non-Af Amer) 40 Random Glucose 121 H (75-110) mg/dL Calcium 8.2 L (8.6-10.4) mg/dl Phosphorus 4.5 (2.5-4.5) mg/dL Magnesium 2.3 (1.6-2.3) mg/dL Total Bilirubin 1.6 H (0.2-1.3) mg/dL AST 31 (17-59) U/L ALT 51 (21-72) U/L Alkaline Phosphatase 54 (38-126) U/L Total Protein 6.0 L (6.3-8.3) g/dL Albumin 3.2 L (3.5-5.0) g/dL Globulin 2.9 (2.2-3.9) gm/dL Albumin/Globulin Ratio 1.1 (1.0-2.1) Lipase (23-300) U/L Blood Type Antibody Screen 12/28/17 12/28/17 12/28/17 Range/Units 23:18 23:18 20:02 WBC 18.3 H (4.8-10.8) K/uL RBC 4.84 (4.40-5.90) Mil/uL Hgb 15.1 D (12.0-18.0) g/dL Hct 45.1 (35.0-51.0) % MCV 93.2 (80.0-94.0) fL MCH 31.3 H (27.0-31.0) pg MCHC 33.6 (33.0-37.0) g/dL RDW 13.7 (11.5-14.5) % Plt Count 298 D (130-400) K/uL MPV 9.1 (7.2-11.7) fL Neut % (Auto) 88.0 H (50.0-75.0) % Lymph % (Auto) 5.0 L (20.0-40.0) % [place] % (Auto) 6.7 (0.0-10.0) % Eos % (Auto) 0.2 (0.0-4.0) % Baso % (Auto) 0.1 (0.0-2.0) % Neut # (Auto) 16.1 H (1.8-7.0) K/uL Lymph # (Auto) 0.9 L (1.0-4.3) K/uL [place] # (Auto) 1.2 H (0.0-0.8) K/uL Eos # (Auto) 0.0 (0.0-0.7) K/uL Baso # (Auto) 0.0 (0.0-0.2) K/uL Neutrophils % (Manual) 87 H (50-75) % Band Neutrophils % (0-2) % Lymphocytes % (Manual) 6 L (20-40) % Monocytes % (Manual) 7 (0-10) % Eosinophils % (Manual) (0-4) % Platelet Estimate Normal (NORMAL) Plt Clumps, EDTA Present PT 13.5 H (9.7-12.2) SECONDS INR 1.23 H (0.92-1.08) APTT 19 L (21-34) SECONDS Sodium 140 (132-148) mmol/L Potassium 3.5 L (3.6-5.2) mmol/L Chloride 96 L (98-107) mmol/L Carbon Dioxide 32 H (22-30) mmol/L Anion Gap 15 (10-20) BUN 48 H (9-20) mg/dL Creatinine 2.8 H (0.8-1.5) mg/dL Est GFR ( Amer) 29 Est GFR (Non-Af Amer) 24 Random Glucose 127 H (75-110) mg/dL Calcium 8.6 (8.6-10.4) mg/dl Phosphorus 5.6 H (2.5-4.5) mg/dL Magnesium 1.9 (1.6-2.3) mg/dL Total Bilirubin 1.5 H (0.2-1.3) mg/dL AST 32 (17-59) U/L ALT 54 (21-72) U/L Alkaline Phosphatase 59 (38-126) U/L Total Protein 6.1 L (6.3-8.3) g/dL Albumin 3.3 L D (3.5-5.0) g/dL Globulin 2.8 (2.2-3.9) gm/dL Albumin/Globulin Ratio 1.2 (1.0-2.1) Lipase (23-300) U/L Blood Type Antibody Screen 12/28/17 12/28/17 12/28/17 Range/Units 20:02 18:39 18:39 WBC 16.6 H (4.8-10.8) K/uL RBC 5.63 (4.40-5.90) Mil/uL Hgb 17.4 (12.0-18.0) g/dL Hct 51.8 H (35.0-51.0) % MCV 92.0 (80.0-94.0) fL MCH 30.8 (27.0-31.0) pg MCHC 33.5 (33.0-37.0) g/dL RDW 13.6 (11.5-14.5) % Plt Count 404 H (130-400) K/uL MPV 8.6 (7.2-11.7) fL Neut % (Auto) 87.4 H (50.0-75.0) % Lymph % (Auto) 5.0 L (20.0-40.0) % [place] % (Auto) 7.0 (0.0-10.0) % Eos % (Auto) 0.4 (0.0-4.0) % Baso % (Auto) 0.2 (0.0-2.0) % Neut # (Auto) 14.5 H (1.8-7.0) K/uL Lymph # (Auto) 0.8 L (1.0-4.3) K/uL [place] # (Auto) 1.2 H (0.0-0.8) K/uL Eos # (Auto) 0.1 (0.0-0.7) K/uL Baso # (Auto) 0.0 (0.0-0.2) K/uL Neutrophils % (Manual) 83 H (50-75) % Band Neutrophils % (0-2) % Lymphocytes % (Manual) 8 L (20-40) % Monocytes % (Manual) 9 (0-10) % Eosinophils % (Manual) (0-4) % Platelet Estimate Slightly increased H (NORMAL) Plt Clumps, EDTA PT (9.7-12.2) SECONDS INR (0.92-1.08) APTT (21-34) SECONDS Sodium 140 (132-148) mmol/L Potassium 3.1 L (3.6-5.2) mmol/L Chloride 88 L (98-107) mmol/L Carbon Dioxide 30 (22-30) mmol/L Anion Gap 24 H (10-20) BUN 52 H (9-20) mg/dL Creatinine 3.9 H (0.8-1.5) mg/dL Est GFR ( Amer) 20 Est GFR (Non-Af Amer) 16 Random Glucose 148 H (75-110) mg/dL Calcium 10.1 (8.6-10.4) mg/dl Phosphorus (2.5-4.5) mg/dL Magnesium (1.6-2.3) mg/dL Total Bilirubin 1.4 H (0.2-1.3) mg/dL AST 38 (17-59) U/L ALT 62 (21-72) U/L Alkaline Phosphatase 83 (38-126) U/L Total Protein 8.4 H (6.3-8.3) g/dL Albumin 4.7 (3.5-5.0) g/dL Globulin 3.7 (2.2-3.9) gm/dL Albumin/Globulin Ratio 1.3 (1.0-2.1) Lipase 102 (23-300) U/L Blood Type B POSITIVE Antibody Screen Negative Laboratory Results - last 24 hr 12/28/17 12/28/17 12/28/17 18:39 18:39 20:02 WBC 16.6 H RBC 5.63 Hgb 17.4 Hct 51.8 H MCV 92.0 MCH 30.8 MCHC 33.5 RDW 13.6 Plt Count 404 H MPV 8.6 Neut % (Auto) 87.4 H Lymph % (Auto) 5.0 L [place] % (Auto) 7.0 Eos % (Auto) 0.4 Baso % (Auto) 0.2 Neut # (Auto) 14.5 H Lymph # (Auto) 0.8 L [place] # (Auto) 1.2 H Eos # (Auto) 0.1 Baso # (Auto) 0.0 Neutrophils % (Manual) 83 H Band Neutrophils % Lymphocytes % (Manual) 8 L Monocytes % (Manual) 9 Eosinophils % (Manual) Platelet Estimate Slightly increased H Plt Clumps, EDTA PT INR APTT Sodium 140 Potassium 3.1 L Chloride 88 L Carbon Dioxide 30 Anion Gap 24 H BUN 52 H Creatinine 3.9 H Est GFR ( Amer) 20 Est GFR (Non-Af Amer) 16 Random Glucose 148 H Calcium 10.1 Phosphorus Magnesium Total Bilirubin 1.4 H AST 38 ALT 62 Alkaline Phosphatase 83 Total Protein 8.4 H Albumin 4.7 Globulin 3.7 Albumin/Globulin Ratio 1.3 Lipase 102 Blood Type B POSITIVE Antibody Screen Negative 12/28/17 12/28/17 12/28/17 20:02 23:18 23:18 WBC 18.3 H RBC 4.84 Hgb 15.1 D Hct 45.1 MCV 93.2 MCH 31.3 H MCHC 33.6 RDW 13.7 Plt Count 298 D MPV 9.1 Neut % (Auto) 88.0 H Lymph % (Auto) 5.0 L [place] % (Auto) 6.7 Eos % (Auto) 0.2 Baso % (Auto) 0.1 Neut # (Auto) 16.1 H Lymph # (Auto) 0.9 L [place] # (Auto) 1.2 H Eos # (Auto) 0.0 Baso # (Auto) 0.0 Neutrophils % (Manual) 87 H Band Neutrophils % Lymphocytes % (Manual) 6 L Monocytes % (Manual) 7 Eosinophils % (Manual) Platelet Estimate Normal Plt Clumps, EDTA Present PT 13.5 H INR 1.23 H APTT 19 L Sodium 140 Potassium 3.5 L Chloride 96 L Carbon Dioxide 32 H Anion Gap 15 BUN 48 H Creatinine 2.8 H Est GFR ( Amer) 29 Est GFR (Non-Af Amer) 24 Random Glucose 127 H Calcium 8.6 Phosphorus 5.6 H Magnesium 1.9 Total Bilirubin 1.5 H AST 32 ALT 54 Alkaline Phosphatase 59 Total Protein 6.1 L Albumin 3.3 L D Globulin 2.8 Albumin/Globulin Ratio 1.2 Lipase Blood Type Antibody Screen 12/29/17 12/29/17 12/29/17 05:24 05:24 05:24 WBC 14.2 H RBC 4.60 Hgb 14.2 Hct 41.6 MCV 90.4 D MCH 30.9 MCHC 34.1 RDW 13.6 Plt Count 303 MPV 8.3 Neut % (Auto) 87.1 H Lymph % (Auto) 3.5 L [place] % (Auto) 8.6 Eos % (Auto) 0.6 Baso % (Auto) 0.2 Neut # (Auto) 12.4 H Lymph # (Auto) 0.5 L [place] # (Auto) 1.2 H Eos # (Auto) 0.1 Baso # (Auto) 0.0 Neutrophils % (Manual) 84 H Band Neutrophils % 2 Lymphocytes % (Manual) 4 L Monocytes % (Manual) 9 Eosinophils % (Manual) 1 Platelet Estimate Normal Plt Clumps, EDTA PT INR APTT 24 D Sodium 137 Potassium 3.5 L Chloride 99 Carbon Dioxide 29 Anion Gap 13 BUN 42 H Creatinine 1.8 H Est GFR ( Amer) 48 Est GFR (Non-Af Amer) 40 Random Glucose 121 H Calcium 8.2 L Phosphorus 4.5 Magnesium 2.3 Total Bilirubin 1.6 H AST 31 ALT 51 Alkaline Phosphatase 54 Total Protein 6.0 L Albumin 3.2 L Globulin 2.9 Albumin/Globulin Ratio 1.1 Lipase Blood Type Antibody Screen Review of Systems - Cardiovascular Cardiovascular: absent: Chest Pain, Dyspnea, Pedal Edema - Respiratory Respiratory: absent: Cough, Dyspnea, Wheezing - Gastrointestinal Gastrointestinal: absent: Abdominal Pain, Constipation, Cramping, Diarrhea, Dysphagia, Melena, Nausea, Vomiting - Genitourinary Genitourinary: absent: Dysuria - Musculoskeletal Musculoskeletal: absent: Back Pain - Integumentary Integumentary: absent: Lesions, Rash Critical Care Progress Note - Nutrition Nutrition: Nutrition Category Date Time Status NPO Diet [DIET] Diets 12/28/17 Breakfast Active Assessment/Plan - Assessment and Plan (Free Text) Assessment: 52 year old male with past medical history of HTN was admitted for incarcerated ventral hernia. He is status post primary repair on incarcerated ventral hernia with small bowel resection POD #1. Incarcerated hernia s/p primary repair with small bowel resection POD #1 - Currently on Zosyn - Continue NPO. Advance diet per surgical recs - NG tube discontinued based on surgical recs - OOB to chair - pain management with diluadid HTN - Currently stable BP. Will continue to monitor Prophylaxis - Protonix, heparin, SCDs Patient stable for transfer out of ICU Case discussed with attending, Dr. Cameron - Date & Time Date: 12/29/17 Time: 13:02 <Mitchell Cameron - Last Filed: 12/30/17 16:01> CCU Objective - Vital Signs / Intake & Output Vital Signs (Last 4 hours): Vital Signs Pulse Resp BP Pulse Ox 12/30/17 14:00 100 H 17 93 L 12/30/17 13:56 103 H 21 81/50 L 94 L 12/30/17 13:30 103 H 42 H 93 L 12/30/17 13:00 84 36 H 92 L 12/30/17 12:55 87 37 H 98/55 L 94 L 12/30/17 12:30 82 95 12/30/17 12:28 83 110/62 95 12/30/17 12:26 83 92 L Intake and Output (Last 8hrs): Intake & Output 12/30/17 12/30/17 12/30/17 06:59 14:59 22:59 Intake Total 1679.2 877.8 Output Total 350 500 Balance 1329.2 377.8 Weight 311 lb 3.52 oz Intake: IV 175 175 Intake, IV Amount 1504.2 702.8 Left Forearm 1150 600 Left Forearm Y port 154.2 102.8 Right Hand 200 Output: Urine 350 500 Urine, Voided 350 500 Other: # Voids Urine, Voided 250 - Medications Active Medications: Active Medications Generic Name Dose Route Start Last Admin Trade Name Freq PRN Reason Stop Dose Admin Hydromorphone HCl 0.5 mg 12/29/17 06:11 12/30/17 03:45 Dilaudid IVP 0.5 mg Q3H PRN Administration Pain, moderate (4-7) Piperacillin Sod/Tazobactam Sod 3.375 gm in 50 mls @ 100 mls/hr 12/29/17 05: 00 12/30/17 12:45 Zosyn 3.375 Gm Iv Premix IVPB 100 mls/hr Q8H MOHSEN Administration Protocol Heparin Sodium/Sodium Chloride 25,000 units in 250 mls @ 25.702 mls/hr 20:21 12/30/17 12:03 Heparin 66835 Units/250ml 1/2 Normal Saline IV 15 units/kg/hr .Q9H44M PRN 21.419 mls/hr ADJUST RATE PER PROTOCOL Administration Protocol 18 UNITS/KG/HR Sodium Chloride 1,000 mls @ 150 mls/hr 12/29/17 23:15 12/30/17 06:15 Sodium Chloride 0.9% IV 150 mls/hr .Q6H40M MOHSEN Administration Pantoprazole Sodium 40 mg 12/29/17 10:00 12/29/17 09:13 Protonix Inj IVP 40 mg DAILY MOHSEN Administration Tamsulosin HCl 0.4 mg 12/29/17 14:30 12/29/17 14:41 Flomax PO Not Given DAILY MOHSEN - Patient Studies Lab Studies: Microbiology Studies 12/29/17 06:31 MRSA Culture (Admit) - Final Nose MRSA NOT DETECTED 12/28/17 22:42 Gram Stain - Final Ascitic Fluid Body Fluid Culture - Preliminary NO GROWTH AFTER 24 HOURS Lab Studies 12/30/17 12/30/17 12/30/17 Range/Units 13:38 03:38 03:38 WBC (4.8-10.8) K/uL RBC (4.40-5.90) Mil/uL Hgb (12.0-18.0) g/dL Hct (35.0-51.0) % MCV (80.0-94.0) fL MCH (27.0-31.0) pg MCHC (33.0-37.0) g/dL RDW (11.5-14.5) % Plt Count (130-400) K/uL MPV (7.2-11.7) fL Neut % (Auto) (50.0-75.0) % Lymph % (Auto) (20.0-40.0) % [place] % (Auto) (0.0-10.0) % Eos % (Auto) (0.0-4.0) % Baso % (Auto) (0.0-2.0) % Neut # (Auto) (1.8-7.0) K/uL Lymph # (Auto) (1.0-4.3) K/uL [place] # (Auto) (0.0-0.8) K/uL Eos # (Auto) (0.0-0.7) K/uL Baso # (Auto) (0.0-0.2) K/uL Neutrophils % (Manual) (50-75) % Band Neutrophils % (0-2) % Lymphocytes % (Manual) (20-40) % Monocytes % (Manual) (0-10) % Eosinophils % (Manual) (0-4) % Platelet Estimate (NORMAL) RBC Morphology PT 16.1 H (9.7-12.2) SECONDS INR 1.5 APTT 90 H D 196 H* D (21-34) SECONDS Puncture Site pCO2 (35-45) mm/Hg pO2 (80-100) mm/Hg HCO3 (21-28) mmol/L ABG pH (7.35-7.45) ABG Total CO2 (22-28) mmol/L ABG O2 Saturation (95-98) % ABG Base Excess (-2.0-3.0) mmol/L ABG Hemoglobin (11.7-17.4) g/dL ABG Carboxyhemoglobin (0.5-1.5) % POC ABG HHb (Measured) (0.0-5.0) % ABG Methemoglobin (0.0-3.0) % Ruddy Test Hgb O2 Saturation (95.0-98.0) % Liter Flow Sodium (132-148) mmol/L Potassium (3.6-5.2) mmol/L Chloride (98-107) mmol/L Carbon Dioxide (22-30) mmol/L Anion Gap (10-20) BUN (9-20) mg/dL Creatinine (0.8-1.5) mg/dL Est GFR ( Amer) Est GFR (Non-Af Amer) Random Glucose (75-110) mg/dL Lactic Acid 0.8 (0.7-2.1) mmol/L Calcium (8.6-10.4) mg/dl Phosphorus (2.5-4.5) mg/dL Magnesium (1.6-2.3) mg/dL Total Bilirubin (0.2-1.3) mg/dL AST (17-59) U/L ALT (21-72) U/L Alkaline Phosphatase (38-126) U/L Total Creatine Kinase (55-170) U/L CK-MB (Mass) (0.0-3.38) ng/mL Troponin I (0.00-0.120) ng/mL NT-Pro-B Natriuret Pep (0-900) pg/mL Total Protein (6.3-8.3) g/dL Albumin (3.5-5.0) g/dL Globulin (2.2-3.9) gm/dL Albumin/Globulin Ratio (1.0-2.1) Urine Color (YELLOW) Urine Clarity (Clear) Urine pH (5.0-8.0) Ur Specific [place] (1.003-1.030) Urine Protein (NEGATIVE) mg/dL Urine Glucose (UA) (Normal) mg/dL Urine Ketones (NEGATIVE) mg/dL Urine Blood (NEGATIVE) Urine Nitrate (NEGATIVE) Urine Bilirubin (NEGATIVE) Urine Urobilinogen (0.2-1.0) mg/dL Ur Leukocyte Esterase (Negative) Teresa/uL Urine WBC (Auto) (0-5) /hpf Urine RBC (Auto) (0-3) /hpf Ur Squamous Epith Cells (0-5) /hpf Ur Random Creatinine mg/dL Ur Random Sodium mmol/L Ur Random Phosphorus mg/dL Ur Random Uric Acid mg/dL Ur Random Glucose mg/dL Ur Random Calcium mg/dL Urine Opiates Screen (NEGATIVE) Urine Methadone Screen (NEGATIVE) Ur Barbiturates Screen (NEGATIVE) Ur Phencyclidine Scrn (NEGATIVE) Ur Amphetamines Screen (NEGATIVE) U Benzodiazepines Scrn (NEGATIVE) U Oth Cocaine Metabols (NEGATIVE) U Cannabinoids Screen (NEGATIVE) 12/30/17 12/30/17 12/30/17 Range/Units 03:38 03:38 03:38 WBC 9.9 (4.8-10.8) K/uL RBC 3.81 L (4.40-5.90) Mil/uL Hgb 12.0 D (12.0-18.0) g/dL Hct 35.2 (35.0-51.0) % MCV 92.4 (80.0-94.0) fL MCH 31.4 H (27.0-31.0) pg MCHC 34.0 (33.0-37.0) g/dL RDW 13.6 (11.5-14.5) % Plt Count 226 (130-400) K/uL MPV 8.3 (7.2-11.7) fL Neut % (Auto) 80.1 H (50.0-75.0) % Lymph % (Auto) 7.5 L (20.0-40.0) % [place] % (Auto) 10.5 H (0.0-10.0) % Eos % (Auto) 1.6 (0.0-4.0) % Baso % (Auto) 0.3 (0.0-2.0) % Neut # (Auto) 7.9 H (1.8-7.0) K/uL Lymph # (Auto) 0.7 L (1.0-4.3) K/uL [place] # (Auto) 1.0 H (0.0-0.8) K/uL Eos # (Auto) 0.2 (0.0-0.7) K/uL Baso # (Auto) 0.0 (0.0-0.2) K/uL Neutrophils % (Manual) 80 H (50-75) % Band Neutrophils % (0-2) % Lymphocytes % (Manual) 7 L (20-40) % Monocytes % (Manual) 12 H (0-10) % Eosinophils % (Manual) 1 (0-4) % Platelet Estimate Normal (NORMAL) RBC Morphology Normal PT (9.7-12.2) SECONDS INR APTT (21-34) SECONDS Puncture Site pCO2 (35-45) mm/Hg pO2 (80-100) mm/Hg HCO3 (21-28) mmol/L ABG pH (7.35-7.45) ABG Total CO2 (22-28) mmol/L ABG O2 Saturation (95-98) % ABG Base Excess (-2.0-3.0) mmol/L ABG Hemoglobin (11.7-17.4) g/dL ABG Carboxyhemoglobin (0.5-1.5) % POC ABG HHb (Measured) (0.0-5.0) % ABG Methemoglobin (0.0-3.0) % Ruddy Test Hgb O2 Saturation (95.0-98.0) % Liter Flow Sodium 142 (132-148) mmol/L Potassium 3.3 L (3.6-5.2) mmol/L Chloride 102 (98-107) mmol/L Carbon Dioxide 30 (22-30) mmol/L Anion Gap 13 (10-20) BUN 31 H (9-20) mg/dL Creatinine 1.3 (0.8-1.5) mg/dL Est GFR ( Amer) > 60 Est GFR (Non-Af Amer) 58 Random Glucose 103 (75-110) mg/dL Lactic Acid (0.7-2.1) mmol/L Calcium 8.3 L (8.6-10.4) mg/dl Phosphorus 2.6 (2.5-4.5) mg/dL Magnesium 2.6 H (1.6-2.3) mg/dL Total Bilirubin 1.7 H (0.2-1.3) mg/dL AST 22 (17-59) U/L ALT 41 (21-72) U/L Alkaline Phosphatase 47 (38-126) U/L Total Creatine Kinase 166 (55-170) U/L CK-MB (Mass) 1.02 (0.0-3.38) ng/mL Troponin I 0.1420 H* (0.00-0.120) ng/mL NT-Pro-B Natriuret Pep (0-900) pg/mL Total Protein 5.7 L (6.3-8.3) g/dL Albumin 3.2 L (3.5-5.0) g/dL Globulin 2.5 (2.2-3.9) gm/dL Albumin/Globulin Ratio 1.3 (1.0-2.1) Urine Color (YELLOW) Urine Clarity (Clear) Urine pH (5.0-8.0) Ur Specific [place] (1.003-1.030) Urine Protein (NEGATIVE) mg/dL Urine Glucose (UA) (Normal) mg/dL Urine Ketones (NEGATIVE) mg/dL Urine Blood (NEGATIVE) Urine Nitrate (NEGATIVE) Urine Bilirubin (NEGATIVE) Urine Urobilinogen (0.2-1.0) mg/dL Ur Leukocyte Esterase (Negative) Teresa/uL Urine WBC (Auto) (0-5) /hpf Urine RBC (Auto) (0-3) /hpf Ur Squamous Epith Cells (0-5) /hpf Ur Random Creatinine mg/dL Ur Random Sodium mmol/L Ur Random Phosphorus mg/dL Ur Random Uric Acid mg/dL Ur Random Glucose mg/dL Ur Random Calcium mg/dL Urine Opiates Screen (NEGATIVE) Urine Methadone Screen (NEGATIVE) Ur Barbiturates Screen (NEGATIVE) Ur Phencyclidine Scrn (NEGATIVE) Ur Amphetamines Screen (NEGATIVE) U Benzodiazepines Scrn (NEGATIVE) U Oth Cocaine Metabols (NEGATIVE) U Cannabinoids Screen (NEGATIVE) 12/29/17 12/29/17 12/29/17 Range/Units 20:05 20:05 20:05 WBC (4.8-10.8) K/uL RBC (4.40-5.90) Mil/uL Hgb (12.0-18.0) g/dL Hct (35.0-51.0) % MCV (80.0-94.0) fL MCH (27.0-31.0) pg MCHC (33.0-37.0) g/dL RDW (11.5-14.5) % Plt Count (130-400) K/uL MPV (7.2-11.7) fL Neut % (Auto) (50.0-75.0) % Lymph % (Auto) (20.0-40.0) % [place] % (Auto) (0.0-10.0) % Eos % (Auto) (0.0-4.0) % Baso % (Auto) (0.0-2.0) % Neut # (Auto) (1.8-7.0) K/uL Lymph # (Auto) (1.0-4.3) K/uL [place] # (Auto) (0.0-0.8) K/uL Eos # (Auto) (0.0-0.7) K/uL Baso # (Auto) (0.0-0.2) K/uL Neutrophils % (Manual) (50-75) % Band Neutrophils % (0-2) % Lymphocytes % (Manual) (20-40) % Monocytes % (Manual) (0-10) % Eosinophils % (Manual) (0-4) % Platelet Estimate (NORMAL) RBC Morphology PT (9.7-12.2) SECONDS INR APTT (21-34) SECONDS Puncture Site pCO2 (35-45) mm/Hg pO2 (80-100) mm/Hg HCO3 (21-28) mmol/L ABG pH (7.35-7.45) ABG Total CO2 (22-28) mmol/L ABG O2 Saturation (95-98) % ABG Base Excess (-2.0-3.0) mmol/L ABG Hemoglobin (11.7-17.4) g/dL ABG Carboxyhemoglobin (0.5-1.5) % POC ABG HHb (Measured) (0.0-5.0) % ABG Methemoglobin (0.0-3.0) % Ruddy Test Hgb O2 Saturation (95.0-98.0) % Liter Flow Sodium (132-148) mmol/L Potassium (3.6-5.2) mmol/L Chloride (98-107) mmol/L Carbon Dioxide (22-30) mmol/L Anion Gap (10-20) BUN (9-20) mg/dL Creatinine (0.8-1.5) mg/dL Est GFR ( Amer) Est GFR (Non-Af Amer) Random Glucose (75-110) mg/dL Lactic Acid (0.7-2.1) mmol/L Calcium (8.6-10.4) mg/dl Phosphorus (2.5-4.5) mg/dL Magnesium (1.6-2.3) mg/dL Total Bilirubin (0.2-1.3) mg/dL AST (17-59) U/L ALT (21-72) U/L Alkaline Phosphatase (38-126) U/L Total Creatine Kinase (55-170) U/L CK-MB (Mass) (0.0-3.38) ng/mL Troponin I (0.00-0.120) ng/mL NT-Pro-B Natriuret Pep (0-900) pg/mL Total Protein (6.3-8.3) g/dL Albumin (3.5-5.0) g/dL Globulin (2.2-3.9) gm/dL Albumin/Globulin Ratio (1.0-2.1) Urine Color Yellow (YELLOW) Urine Clarity Clear (Clear) Urine pH 5.0 (5.0-8.0) Ur Specific [place] 1.021 (1.003-1.030) Urine Protein Negative (NEGATIVE) mg/dL Urine Glucose (UA) Normal (Normal) mg/dL Urine Ketones Negative (NEGATIVE) mg/dL Urine Blood Negative (NEGATIVE) Urine Nitrate Negative (NEGATIVE) Urine Bilirubin Negative (NEGATIVE) Urine Urobilinogen Normal (0.2-1.0) mg/dL Ur Leukocyte Esterase Neg (Negative) Teresa/uL Urine WBC (Auto) 4 (0-5) /hpf Urine RBC (Auto) < 1 (0-3) /hpf Ur Squamous Epith Cells < 1 (0-5) /hpf Ur Random Creatinine 210.9 mg/dL Ur Random Sodium 39 mmol/L Ur Random Phosphorus 108.3 mg/dL Ur Random Uric Acid 98.3 mg/dL Ur Random Glucose < 20 mg/dL Ur Random Calcium < 1.0 mg/dL Urine Opiates Screen Positive H (NEGATIVE) Urine Methadone Screen Negative (NEGATIVE) Ur Barbiturates Screen Negative (NEGATIVE) Ur Phencyclidine Scrn Negative (NEGATIVE) Ur Amphetamines Screen Negative (NEGATIVE) U Benzodiazepines Scrn Negative (NEGATIVE) U Oth Cocaine Metabols Negative (NEGATIVE) U Cannabinoids Screen Negative (NEGATIVE) 12/29/17 12/29/17 12/29/17 Range/Units 19:43 17:07 17:07 WBC (4.8-10.8) K/uL RBC (4.40-5.90) Mil/uL Hgb (12.0-18.0) g/dL Hct (35.0-51.0) % MCV (80.0-94.0) fL MCH (27.0-31.0) pg MCHC (33.0-37.0) g/dL RDW (11.5-14.5) % Plt Count (130-400) K/uL MPV (7.2-11.7) fL Neut % (Auto) (50.0-75.0) % Lymph % (Auto) (20.0-40.0) % [place] % (Auto) (0.0-10.0) % Eos % (Auto) (0.0-4.0) % Baso % (Auto) (0.0-2.0) % Neut # (Auto) (1.8-7.0) K/uL Lymph # (Auto) (1.0-4.3) K/uL [place] # (Auto) (0.0-0.8) K/uL Eos # (Auto) (0.0-0.7) K/uL Baso # (Auto) (0.0-0.2) K/uL Neutrophils % (Manual) (50-75) % Band Neutrophils % (0-2) % Lymphocytes % (Manual) (20-40) % Monocytes % (Manual) (0-10) % Eosinophils % (Manual) (0-4) % Platelet Estimate (NORMAL) RBC Morphology PT (9.7-12.2) SECONDS INR APTT (21-34) SECONDS Puncture Site pCO2 (35-45) mm/Hg pO2 (80-100) mm/Hg HCO3 (21-28) mmol/L ABG pH (7.35-7.45) ABG Total CO2 (22-28) mmol/L ABG O2 Saturation (95-98) % ABG Base Excess (-2.0-3.0) mmol/L ABG Hemoglobin (11.7-17.4) g/dL ABG Carboxyhemoglobin (0.5-1.5) % POC ABG HHb (Measured) (0.0-5.0) % ABG Methemoglobin (0.0-3.0) % Ruddy Test Hgb O2 Saturation (95.0-98.0) % Liter Flow Sodium 139 (132-148) mmol/L Potassium 3.5 L (3.6-5.2) mmol/L Chloride 101 (98-107) mmol/L Carbon Dioxide 30 (22-30) mmol/L Anion Gap 11 (10-20) BUN 37 H (9-20) mg/dL Creatinine 1.6 H (0.8-1.5) mg/dL Est GFR ( Amer) 55 Est GFR (Non-Af Amer) 46 Random Glucose 116 H (75-110) mg/dL Lactic Acid 1.3 (0.7-2.1) mmol/L Calcium 8.1 L (8.6-10.4) mg/dl Phosphorus 2.7 (2.5-4.5) mg/dL Magnesium 2.4 H (1.6-2.3) mg/dL Total Bilirubin 2.0 H (0.2-1.3) mg/dL AST 24 (17-59) U/L ALT 46 (21-72) U/L Alkaline Phosphatase 56 (38-126) U/L Total Creatine Kinase (55-170) U/L CK-MB (Mass) (0.0-3.38) ng/mL Troponin I 0.1500 H* (0.00-0.120) ng/mL NT-Pro-B Natriuret Pep 67.0 (0-900) pg/mL Total Protein 5.8 L (6.3-8.3) g/dL Albumin 3.1 L (3.5-5.0) g/dL Globulin 2.7 (2.2-3.9) gm/dL Albumin/Globulin Ratio 1.2 (1.0-2.1) Urine Color (YELLOW) Urine Clarity (Clear) Urine pH (5.0-8.0) Ur Specific [place] (1.003-1.030) Urine Protein (NEGATIVE) mg/dL Urine Glucose (UA) (Normal) mg/dL Urine Ketones (NEGATIVE) mg/dL Urine Blood (NEGATIVE) Urine Nitrate (NEGATIVE) Urine Bilirubin (NEGATIVE) Urine Urobilinogen (0.2-1.0) mg/dL Ur Leukocyte Esterase (Negative) Teresa/uL Urine WBC (Auto) (0-5) /hpf Urine RBC (Auto) (0-3) /hpf Ur Squamous Epith Cells (0-5) /hpf Ur Random Creatinine mg/dL Ur Random Sodium mmol/L Ur Random Phosphorus mg/dL Ur Random Uric Acid mg/dL Ur Random Glucose mg/dL Ur Random Calcium mg/dL Urine Opiates Screen (NEGATIVE) Urine Methadone Screen (NEGATIVE) Ur Barbiturates Screen (NEGATIVE) Ur Phencyclidine Scrn (NEGATIVE) Ur Amphetamines Screen (NEGATIVE) U Benzodiazepines Scrn (NEGATIVE) U Oth Cocaine Metabols (NEGATIVE) U Cannabinoids Screen (NEGATIVE) 12/29/17 12/29/17 Range/Units 17:07 16:23 WBC 11.0 H (4.8-10.8) K/uL RBC 4.40 (4.40-5.90) Mil/uL Hgb 14.1 (12.0-18.0) g/dL Hct 40.4 (35.0-51.0) % MCV 91.7 (80.0-94.0) fL MCH 32.0 H (27.0-31.0) pg MCHC 34.9 (33.0-37.0) g/dL RDW 13.5 (11.5-14.5) % Plt Count 259 (130-400) K/uL MPV 7.8 (7.2-11.7) fL Neut % (Auto) 82.3 H (50.0-75.0) % Lymph % (Auto) 5.1 L (20.0-40.0) % [place] % (Auto) 11.4 H (0.0-10.0) % Eos % (Auto) 0.9 (0.0-4.0) % Baso % (Auto) 0.3 (0.0-2.0) % Neut # (Auto) 9.0 H (1.8-7.0) K/uL Lymph # (Auto) 0.6 L (1.0-4.3) K/uL [place] # (Auto) 1.2 H (0.0-0.8) K/uL Eos # (Auto) 0.1 (0.0-0.7) K/uL Baso # (Auto) 0.0 (0.0-0.2) K/uL Neutrophils % (Manual) 91 H (50-75) % Band Neutrophils % 1 (0-2) % Lymphocytes % (Manual) 4 L (20-40) % Monocytes % (Manual) 4 (0-10) % Eosinophils % (Manual) (0-4) % Platelet Estimate Normal (NORMAL) RBC Morphology Normal PT (9.7-12.2) SECONDS INR APTT (21-34) SECONDS Puncture Site Lba pCO2 40 (35-45) mm/Hg pO2 72 L (80-100) mm/Hg HCO3 31.2 H (21-28) mmol/L ABG pH 7.51 H (7.35-7.45) ABG Total CO2 33.1 H (22-28) mmol/L ABG O2 Saturation 97.4 (95-98) % ABG Base Excess 8.2 H (-2.0-3.0) mmol/L ABG Hemoglobin 13.5 (11.7-17.4) g/dL ABG Carboxyhemoglobin 2.8 H (0.5-1.5) % POC ABG HHb (Measured) 2.5 (0.0-5.0) % ABG Methemoglobin 1.2 (0.0-3.0) % Ruddy Test Pos Hgb O2 Saturation 93.5 L (95.0-98.0) % Liter Flow 4.0 Sodium (132-148) mmol/L Potassium (3.6-5.2) mmol/L Chloride (98-107) mmol/L Carbon Dioxide (22-30) mmol/L Anion Gap (10-20) BUN (9-20) mg/dL Creatinine (0.8-1.5) mg/dL Est GFR ( Amer) Est GFR (Non-Af Amer) Random Glucose (75-110) mg/dL Lactic Acid (0.7-2.1) mmol/L Calcium (8.6-10.4) mg/dl Phosphorus (2.5-4.5) mg/dL Magnesium (1.6-2.3) mg/dL Total Bilirubin (0.2-1.3) mg/dL AST (17-59) U/L ALT (21-72) U/L Alkaline Phosphatase (38-126) U/L Total Creatine Kinase (55-170) U/L CK-MB (Mass) (0.0-3.38) ng/mL Troponin I (0.00-0.120) ng/mL NT-Pro-B Natriuret Pep (0-900) pg/mL Total Protein (6.3-8.3) g/dL Albumin (3.5-5.0) g/dL Globulin (2.2-3.9) gm/dL Albumin/Globulin Ratio (1.0-2.1) Urine Color (YELLOW) Urine Clarity (Clear) Urine pH (5.0-8.0) Ur Specific [place] (1.003-1.030) Urine Protein (NEGATIVE) mg/dL Urine Glucose (UA) (Normal) mg/dL Urine Ketones (NEGATIVE) mg/dL Urine Blood (NEGATIVE) Urine Nitrate (NEGATIVE) Urine Bilirubin (NEGATIVE) Urine Urobilinogen (0.2-1.0) mg/dL Ur Leukocyte Esterase (Negative) Teresa/uL Urine WBC (Auto) (0-5) /hpf Urine RBC (Auto) (0-3) /hpf Ur Squamous Epith Cells (0-5) /hpf Ur Random Creatinine mg/dL Ur Random Sodium mmol/L Ur Random Phosphorus mg/dL Ur Random Uric Acid mg/dL Ur Random Glucose mg/dL Ur Random Calcium mg/dL Urine Opiates Screen (NEGATIVE) Urine Methadone Screen (NEGATIVE) Ur Barbiturates Screen (NEGATIVE) Ur Phencyclidine Scrn (NEGATIVE) Ur Amphetamines Screen (NEGATIVE) U Benzodiazepines Scrn (NEGATIVE) U Oth Cocaine Metabols (NEGATIVE) U Cannabinoids Screen (NEGATIVE) Laboratory Results - last 24 hr 12/29/17 12/29/17 12/29/17 16:23 17:07 17:07 WBC 11.0 H RBC 4.40 Hgb 14.1 Hct 40.4 MCV 91.7 MCH 32.0 H MCHC 34.9 RDW 13.5 Plt Count 259 MPV 7.8 Neut % (Auto) 82.3 H Lymph % (Auto) 5.1 L [place] % (Auto) 11.4 H Eos % (Auto) 0.9 Baso % (Auto) 0.3 Neut # (Auto) 9.0 H Lymph # (Auto) 0.6 L [place] # (Auto) 1.2 H Eos # (Auto) 0.1 Baso # (Auto) 0.0 Neutrophils % (Manual) 91 H Band Neutrophils % 1 Lymphocytes % (Manual) 4 L Monocytes % (Manual) 4 Eosinophils % (Manual) Platelet Estimate Normal RBC Morphology Normal PT INR APTT Puncture Site Lba pCO2 40 pO2 72 L HCO3 31.2 H ABG pH 7.51 H ABG Total CO2 33.1 H ABG O2 Saturation 97.4 ABG Base Excess 8.2 H ABG Hemoglobin 13.5 ABG Carboxyhemoglobin 2.8 H POC ABG HHb (Measured) 2.5 ABG Methemoglobin 1.2 Ruddy Test Pos Hgb O2 Saturation 93.5 L Liter Flow 4.0 Sodium 139 Potassium 3.5 L Chloride 101 Carbon Dioxide 30 Anion Gap 11 BUN 37 H Creatinine 1.6 H Est GFR ( Amer) 55 Est GFR (Non-Af Amer) 46 Random Glucose 116 H Lactic Acid Calcium 8.1 L Phosphorus 2.7 Magnesium 2.4 H Total Bilirubin 2.0 H AST 24 ALT 46 Alkaline Phosphatase 56 Total Creatine Kinase CK-MB (Mass) Troponin I 0.1500 H* NT-Pro-B Natriuret Pep Total Protein 5.8 L Albumin 3.1 L Globulin 2.7 Albumin/Globulin Ratio 1.2 Urine Color Urine Clarity Urine pH Ur Specific [place] Urine Protein Urine Glucose (UA) Urine Ketones Urine Blood Urine Nitrate Urine Bilirubin Urine Urobilinogen Ur Leukocyte Esterase Urine WBC (Auto) Urine RBC (Auto) Ur Squamous Epith Cells Ur Random Creatinine Ur Random Sodium Ur Random Phosphorus Ur Random Uric Acid Ur Random Glucose Ur Random Calcium Urine Opiates Screen Urine Methadone Screen Ur Barbiturates Screen Ur Phencyclidine Scrn Ur Amphetamines Screen U Benzodiazepines Scrn U Oth Cocaine Metabols U Cannabinoids Screen 12/29/17 12/29/17 12/29/17 17:07 19:43 20:05 WBC RBC Hgb Hct MCV MCH MCHC RDW Plt Count MPV Neut % (Auto) Lymph % (Auto) [place] % (Auto) Eos % (Auto) Baso % (Auto) Neut # (Auto) Lymph # (Auto) [place] # (Auto) Eos # (Auto) Baso # (Auto) Neutrophils % (Manual) Band Neutrophils % Lymphocytes % (Manual) Monocytes % (Manual) Eosinophils % (Manual) Platelet Estimate RBC Morphology PT INR APTT Puncture Site pCO2 pO2 HCO3 ABG pH ABG Total CO2 ABG O2 Saturation ABG Base Excess ABG Hemoglobin ABG Carboxyhemoglobin POC ABG HHb (Measured) ABG Methemoglobin Ruddy Test Hgb O2 Saturation Liter Flow Sodium Potassium Chloride Carbon Dioxide Anion Gap BUN Creatinine Est GFR ( Amer) Est GFR (Non-Af Amer) Random Glucose Lactic Acid 1.3 Calcium Phosphorus Magnesium Total Bilirubin AST ALT Alkaline Phosphatase Total Creatine Kinase CK-MB (Mass) Troponin I NT-Pro-B Natriuret Pep 67.0 Total Protein Albumin Globulin Albumin/Globulin Ratio Urine Color Yellow Urine Clarity Clear Urine pH 5.0 Ur Specific [place] 1.021 Urine Protein Negative Urine Glucose (UA) Normal Urine Ketones Negative Urine Blood Negative Urine Nitrate Negative Urine Bilirubin Negative Urine Urobilinogen Normal Ur Leukocyte Esterase Neg Urine WBC (Auto) 4 Urine RBC (Auto) < 1 Ur Squamous Epith Cells < 1 Ur Random Creatinine Ur Random Sodium Ur Random Phosphorus Ur Random Uric Acid Ur Random Glucose Ur Random Calcium Urine Opiates Screen Urine Methadone Screen Ur Barbiturates Screen Ur Phencyclidine Scrn Ur Amphetamines Screen U Benzodiazepines Scrn U Oth Cocaine Metabols U Cannabinoids Screen 12/29/17 12/29/17 12/30/17 20:05 20:05 03:38 WBC RBC Hgb Hct MCV MCH MCHC RDW Plt Count MPV Neut % (Auto) Lymph % (Auto) [place] % (Auto) Eos % (Auto) Baso % (Auto) Neut # (Auto) Lymph # (Auto) [place] # (Auto) Eos # (Auto) Baso # (Auto) Neutrophils % (Manual) Band Neutrophils % Lymphocytes % (Manual) Monocytes % (Manual) Eosinophils % (Manual) Platelet Estimate RBC Morphology PT INR APTT Puncture Site pCO2 pO2 HCO3 ABG pH ABG Total CO2 ABG O2 Saturation ABG Base Excess ABG Hemoglobin ABG Carboxyhemoglobin POC ABG HHb (Measured) ABG Methemoglobin Ruddy Test Hgb O2 Saturation Liter Flow Sodium Potassium Chloride Carbon Dioxide Anion Gap BUN Creatinine Est GFR ( Amer) Est GFR (Non-Af Amer) Random Glucose Lactic Acid Calcium Phosphorus Magnesium Total Bilirubin AST ALT Alkaline Phosphatase Total Creatine Kinase 166 CK-MB (Mass) 1.02 Troponin I 0.1420 H* NT-Pro-B Natriuret Pep Total Protein Albumin Globulin Albumin/Globulin Ratio Urine Color Urine Clarity Urine pH Ur Specific [place] Urine Protein Urine Glucose (UA) Urine Ketones Urine Blood Urine Nitrate Urine Bilirubin Urine Urobilinogen Ur Leukocyte Esterase Urine WBC (Auto) Urine RBC (Auto) Ur Squamous Epith Cells Ur Random Creatinine 210.9 Ur Random Sodium 39 Ur Random Phosphorus 108.3 Ur Random Uric Acid 98.3 Ur Random Glucose < 20 Ur Random Calcium < 1.0 Urine Opiates Screen Positive H Urine Methadone Screen Negative Ur Barbiturates Screen Negative Ur Phencyclidine Scrn Negative Ur Amphetamines Screen Negative U Benzodiazepines Scrn Negative U Oth Cocaine Metabols Negative U Cannabinoids Screen Negative 12/30/17 12/30/17 12/30/17 03:38 03:38 03:38 WBC 9.9 RBC 3.81 L Hgb 12.0 D Hct 35.2 MCV 92.4 MCH 31.4 H MCHC 34.0 RDW 13.6 Plt Count 226 MPV 8.3 Neut % (Auto) 80.1 H Lymph % (Auto) 7.5 L [place] % (Auto) 10.5 H Eos % (Auto) 1.6 Baso % (Auto) 0.3 Neut # (Auto) 7.9 H Lymph # (Auto) 0.7 L [place] # (Auto) 1.0 H Eos # (Auto) 0.2 Baso # (Auto) 0.0 Neutrophils % (Manual) 80 H Band Neutrophils % Lymphocytes % (Manual) 7 L Monocytes % (Manual) 12 H Eosinophils % (Manual) 1 Platelet Estimate Normal RBC Morphology Normal PT 16.1 H INR 1.5 APTT 196 H* D Puncture Site pCO2 pO2 HCO3 ABG pH ABG Total CO2 ABG O2 Saturation ABG Base Excess ABG Hemoglobin ABG Carboxyhemoglobin POC ABG HHb (Measured) ABG Methemoglobin Ruddy Test Hgb O2 Saturation Liter Flow Sodium 142 Potassium 3.3 L Chloride 102 Carbon Dioxide 30 Anion Gap 13 BUN 31 H Creatinine 1.3 Est GFR ( Amer) > 60 Est GFR (Non-Af Amer) 58 Random Glucose 103 Lactic Acid Calcium 8.3 L Phosphorus 2.6 Magnesium 2.6 H Total Bilirubin 1.7 H AST 22 ALT 41 Alkaline Phosphatase 47 Total Creatine Kinase CK-MB (Mass) Troponin I NT-Pro-B Natriuret Pep Total Protein 5.7 L Albumin 3.2 L Globulin 2.5 Albumin/Globulin Ratio 1.3 Urine Color Urine Clarity Urine pH Ur Specific [place] Urine Protein Urine Glucose (UA) Urine Ketones Urine Blood Urine Nitrate Urine Bilirubin Urine Urobilinogen Ur Leukocyte Esterase Urine WBC (Auto) Urine RBC (Auto) Ur Squamous Epith Cells Ur Random Creatinine Ur Random Sodium Ur Random Phosphorus Ur Random Uric Acid Ur Random Glucose Ur Random Calcium Urine Opiates Screen Urine Methadone Screen Ur Barbiturates Screen Ur Phencyclidine Scrn Ur Amphetamines Screen U Benzodiazepines Scrn U Oth Cocaine Metabols U Cannabinoids Screen 12/30/17 12/30/17 03:38 13:38 WBC RBC Hgb Hct MCV MCH MCHC RDW Plt Count MPV Neut % (Auto) Lymph % (Auto) [place] % (Auto) Eos % (Auto) Baso % (Auto) Neut # (Auto) Lymph # (Auto) [place] # (Auto) Eos # (Auto) Baso # (Auto) Neutrophils % (Manual) Band Neutrophils % Lymphocytes % (Manual) Monocytes % (Manual) Eosinophils % (Manual) Platelet Estimate RBC Morphology PT INR APTT 90 H D Puncture Site pCO2 pO2 HCO3 ABG pH ABG Total CO2 ABG O2 Saturation ABG Base Excess ABG Hemoglobin ABG Carboxyhemoglobin POC ABG HHb (Measured) ABG Methemoglobin Ruddy Test Hgb O2 Saturation Liter Flow Sodium Potassium Chloride Carbon Dioxide Anion Gap BUN Creatinine Est GFR ( Amer) Est GFR (Non-Af Amer) Random Glucose Lactic Acid 0.8 Calcium Phosphorus Magnesium Total Bilirubin AST ALT Alkaline Phosphatase Total Creatine Kinase CK-MB (Mass) Troponin I NT-Pro-B Natriuret Pep Total Protein Albumin Globulin Albumin/Globulin Ratio Urine Color Urine Clarity Urine pH Ur Specific [place] Urine Protein Urine Glucose (UA) Urine Ketones Urine Blood Urine Nitrate Urine Bilirubin Urine Urobilinogen Ur Leukocyte Esterase Urine WBC (Auto) Urine RBC (Auto) Ur Squamous Epith Cells Ur Random Creatinine Ur Random Sodium Ur Random Phosphorus Ur Random Uric Acid Ur Random Glucose Ur Random Calcium Urine Opiates Screen Urine Methadone Screen Ur Barbiturates Screen Ur Phencyclidine Scrn Ur Amphetamines Screen U Benzodiazepines Scrn U Oth Cocaine Metabols U Cannabinoids Screen EKG/Cardiology Studies: Cardiology / EKG Studies 12/29/17 15:57 EKG [ELECTROCARDIOGRAM] Stat Comment: Mode Of Transportation: Reason For Exam: tachy 12/29/17 17:09 ELECTROCARDIOGRAM Stat Comment: Mode Of Transportation: Reason For Exam: hypotension 12/30/17 00:00 ELECTROCARDIOGRAM Routine Comment: Mode Of Transportation: Reason For Exam: ekg changes 12/30/17 06:00 EKG [ELECTROCARDIOGRAM] Routine Comment: Mode Of Transportation: Reason For Exam: elevated troponins Critical Care Progress Note - Nutrition Nutrition: Nutrition Category Date Time Status Liquid Diet [DIET] Diets 12/30/17 Breakfast Active Assessment/Plan - Assessment and Plan (Free Text) Plan: Patient admitted to ICU post operative, hernia repair and small bowel resection. Patient POD#1 Patient has CARINE (possible 2nd dehydration versus diovan(ACEI). -CARINE: continue IVF -NG tube to suction, passes flatus -Patient remains hemodynamically stabl -PT/OT -OOB to chair - Date & Time Time: 19:00
--- NOTE | 2017-12-29 13:26 | RAD ---
PROCEDURE: Radiographs of the chest and abdomen (obstructive series) HISTORY: abd pain COMPARISON: MR of the abdomen without contrast July 2016 -that report is noted. That exam notes a ventral hernia containing mesenteric fat and some fluid That MR report also makes reference to an outside CT exam. The outside CT report however and the type of exam is not known to me. TECHNIQUE: AP radiograph of the chest, with upright and supine radiographs of the abdomen. FINDINGS: CHEST: Lungs: Discoid atelectasis and scarring left lung base. Otherwise clear Cardiovascular: Normal size heart. No pulmonary vascular congestion. Pleura: No pleural fluid. No pneumothorax. Other findings: None. ABDOMEN AND PELVIS: Bowel: There is dilatation of the small bowel loops not appreciated on the are abdomen exam from July 2016. A small bowel obstruction is suspect. Free air: None. Bones: Unremarkable. Other findings: None. IMPRESSION: Findings consistent with a small-bowel obstruction. No ER physician's or PA note was available A phone call to the ER was made. 12/29/2017 at 1:25 p.m. As per the PA Johana Munson ,, the patient was admitted for small bowel obstruction Comments: The case is presented to me on 12/29/2017 with a designation of a "stat" reading .
[2017-12-29] MEDS ORDERED: Lactated Ringer's 1,000 ML IV ONE (14:31)
--- NOTE | 2017-12-29 15:34 | US ---
Renal ultrasound History: Acute renal insufficiency. Comparison: None available. Technique: Real-time sonography was performed through the kidneys. Findings: Right kidney: 10.8 x 5.3 x 5.9 centimeters. No calculi or hydronephrosis. Left Kidney: 11.6 x 6.0 x 5.0 centimeters. No calculi or hydronephrosis. Visualized urinary bladder is preserved. Aorta not well visualized. Impression: Unremarkable sonographic evaluation of the kidneys. Limited visualization of the aorta.
--- NOTE | 2017-12-29 15:37 | RAD ---
HISTORY: eval effusion COMPARISON: Chest radiograph dated 12/28/2017. FINDINGS: LUNGS: No active pulmonary disease. PLEURA: No significant pleural effusion identified, no pneumothorax apparent. CARDIOVASCULAR: Normal. OSSEOUS STRUCTURES: Degenerative changes. VISUALIZED UPPER ABDOMEN: Normal. OTHER FINDINGS: None. IMPRESSION: No active disease.
[2017-12-29] MEDS ORDERED: Sodium Chloride 0.9% 1,000 ML IV ONE ×3 (15:58→16:12)
[2017-12-29] MEDS ORDERED: Metoprolol 1 mg/ml Inj IVP SCH (16:15)
[2017-12-29 16:27] LABS: ABG ALLEN TEST POS; ARTERIAL BLOOD GAS HCO3 31.2 mmol/L (21-28); ARTERIAL BLOOD GAS HEMOGLOBIN 13.5 g/dL (11.7-17.4); ARTERIAL BLOOD GAS O2 SAT 97.4 % (95-98); ARTERIAL BLOOD GAS PCO2 40 mm/Hg (35-45); ARTERIAL BLOOD GAS PH 7.51 (7.35-7.45); ARTERIAL BLOOD GAS PO2 72 mm/Hg (80-100); ARTERIAL BLOOD GAS TCO2 33.1 mmol/L (22-28)
--- NOTE | 2017-12-29 17:04 | CP.PCM.PN ---
Subjective - Date & Time of Evaluation Date of Evaluation: 12/29/17 Time of Evaluation: 16:59 - Subjective Subjective: Pt seen and examined on the floor. Patient was transferred out of ICU today to med/surg. Nurse requested reexamination by intencivist due to hypotension. After being transferred out of ICU, pt became hypotensive and developed tachycardia. Patient was also noted to be saturating in low 90s.. Patient denied having any chest pain, shortness of breath, lightheadedness, palpitations. Patient was started on 2 L NS bolus. Patient continued to be asymptomatic after 1 L bolus of NS. Patient's blood pressure improved after 1 L. Objective - Vital Signs/Intake and Output Vital Signs (last 24 hours): Temp Pulse Resp BP Pulse Ox 99 F 114 H 20 89/56 L 94 L 12/29/17 16:27 12/29/17 16:27 12/29/17 16:27 12/29/17 16:27 12/29/17 16:27 Intake and Output: 12/29/17 12/29/17 06:59 18:59 Intake Total 5050 1275 Output Total 1425 720 Balance 3625 555 - Medications Medications: Current Medications Albumin Human (Albumin Human 25% (12.5 Gm/50 Ml)) 25 gm IV Q6H [facility]HS[facility] Stop: 12/30/17 12:01 Heparin Sodium (Porcine) (Heparin) 5,000 units SC Q8 MOHS[facility] Last Admin: 12/29/17 13:49 Dose: 5,000 units Hydromorphone HCl (Dilaudid) 0.5 mg IVP Q3H PRN PRN Reason: Pain, moderate (4-7) Last Admin: 12/29/17 14:41 Dose: 0.5 mg Piperacillin Sod/Tazobactam Sod (Zosyn 3.375 Gm Iv Premix) 3.375 gm in 50 mls @ 100 mls/hr IVPB Q8H [facility]HS[facility] PRN Reason: Protocol Last Admin: 12/29/17 12:13 Dose: 100 mls/hr Lactated Ringer's (Lactated Ringer's) 1,000 mls @ 75 mls/hr IV .[id number] ONE Stop: 12/30/17 03:50 Sodium Chloride (Sodium Chloride 0.9%) 1,000 mls @ 1,000 mls/hr IV .Q1H ONE Stop: 12/29/17 17:03 Sodium Chloride (Sodium Chloride 0.9%) 1,000 mls @ 1,000 mls/hr IV .Q1H ONE Stop: 12/29/17 17:11 Metoprolol Tartrate (Lopressor) 5 mg IVP Q6H [facility] Pantoprazole Sodium (Protonix Inj) 40 mg IVP DAILY [facility] Last Admin: 12/29/17 09:13 Dose: 40 mg Tamsulosin HCl (Flomax) 0.4 mg PO DAILY [facility] Last Admin: 12/29/17 14:41 Dose: Not Given - Labs Labs: 12/29/17 05:24 12/29/17 05:24 PT 13.5 SECONDS (9.7-12.2) H 12/28/17 20:02 INR 1.23 (0.92-1.08) H 12/28/17 20:02 APTT 24 SECONDS (21-34) D 12/29/17 05:24 - Constitutional Appears: Non-toxic, No Acute Distress - Respiratory Exam Respiratory Exam: Clear to Ausculation Bilateral. absent: Rales, Rhonchi, Wheezes - Cardiovascular Exam Cardiovascular Exam: Tachycardia, REGULAR RHYTHM, +S1, +S2. absent: Gallop, Rubs, Murmur - GI/Abdominal Exam GI & Abdominal Exam: Soft, Normal Bowel Sounds. absent: Distended, Firm, Guarding, Rigid, Tenderness, Organomegaly - Neurological Exam Neurological Exam: Alert, Awake, Oriented x3 - Psychiatric Exam Psychiatric exam: Normal Affect, Normal Mood - Skin Skin Exam: Dry, Intact, Normal Color, Warm Assessment and Plan - Assessment and Plan (Free Text) Assessment: 52 year old male with past medical history of HTN was admitted for incarcerated ventral hernia. He is status post primary repair on incarcerated ventral hernia with small bowel resection POD #1. Hypotension - Likely 2/2 small bowel resection - Pt will receive 2 L of NS bolus - Pt also noted to be tachycardic. Will receive lopressor - will check EKG and CTA chest to rule out PE - CXR showed no active disease - Will check CBC, CMP, Mg, Phos, lactic acid, proBNP, troponins Incarcerated hernia s/p primary repair with small bowel resection POD #1 - Currently on Zosyn - Continue NPO. Advance diet per surgical recs - NG tube discontinued based on surgical recs - OOB to chair - pain management with diluadid CARINE - BUN/Cr 42/1.8 - Will hold Diovan - Continue to monitor - Kidney US negtaive - Will check urine electrolytes Prophylaxis - Protonix, heparin, SCDs Case discussed with attending, Dr. Cameron
[2017-12-29 17:13] LABS: BASO % 0.3 % (0.0-2.0); EOS # 0.1 K/uL (0.0-0.7); EOS % 0.9 % (0.0-4.0); HEMOGLOBIN 14.1 g/dL (12.0-18.0); LYMPH # 0.6 K/uL (1.0-4.3); LYMPH % 5.1 % (20.0-40.0); MEAN CELL VOLUME 91.7 fL (80.0-94.0); MEAN CORPUSCULAR HGB CONC 34.9 g/dL (33.0-37.0); MEAN PLATELET VOLUME 7.8 fL (7.2-11.7); MONO # 1.2 K/uL (0.0-0.8); MONO % 11.4 % (0.0-10.0); NEUT % 82.3 % (50.0-75.0); PLATELET COUNT 259 K/uL (130-400); RED CELL DISTRIBUTION WIDTH 13.5 % (11.5-14.5)
[2017-12-29 17:36] LABS: ALB/GLOB RATIO 1.2 (1.0-2.1); ALBUMIN 3.1 g/dL (3.5-5.0); CALCIUM 8.1 mg/dl (8.6-10.4)
[2017-12-29] MEDS: Albumin Human 25% (12.5 gm/50 ml) IV SCH ×2 (17:45→22:59)
[2017-12-29 17:48] LABS: TROPONIN I 0.15 ng/mL (0.00-0.120)
[2017-12-29 18:03] LABS: BANDS 1 % (0-2); LYMPHOCYTE 4 % (20-40); MONOCYTE 4 % (0-10); NEUTROPHIL 91 % (50-75); PLATELET ESTIMATE NORMAL (NORMAL); TOTAL CELLS COUNTED 100
[2017-12-29] MEDS ORDERED: Iodixanol 320 MG/ML 100 ML BOTTLE IV ONE (19:31)
[2017-12-29] MEDS ORDERED: Sodium Chloride 0.9% 1,000 ML IV SCH (19:45)
[2017-12-29 20:19] LABS: SQUAMOUS EPITHIAL < 1 /hpf (0-5); URINE BILIRUBIN NEGATIVE (NEGATIVE); URINE BLOOD NEGATIVE (NEGATIVE); URINE CLARITY Clear (Clear); URINE COLOR Yellow (YELLOW); URINE GLUCOSE (UA) NORMAL (Normal); URINE LEUKOCYTE ESTERASE NEG Leu/uL (Negative); URINE PROTEIN NEGATIVE (NEGATIVE); URINE UROBILINOGEN NORMAL mg/dL (0.2-1.0)
[2017-12-29 20:36] LABS: BARBITURATES, UR NEGATIVE (NEGATIVE); BENZODIAZEPINES, UR NEGATIVE (NEGATIVE); PHENCYCLIDINE, UR NEGATIVE (NEGATIVE)
[2017-12-29 20:38] LABS: OPIATES, UR POSITIVE (NEGATIVE)
[2017-12-29 21:02] LABS: CREATININE, RANDOM URINE 210.9 mg/dL
[2017-12-29] MEDS: Heparin25000 units/250ml 1/2NS 25,000 UNITS/250 ML BAG IV PRN (21:07)
[2017-12-29] MEDS ORDERED: Acetaminophen IV 1,000 MG in Premixed IV 1 EA IV ONE (21:49)
--- NOTE | 2017-12-29 22:53 | CP.PCM.PN ---
Subjective - Date & Time of Evaluation Date of Evaluation: 12/29/17 Time of Evaluation: 22:52 - Subjective Subjective: CTA showed small saddle and bilateral proximal occlusive PE, patient needing about 50% FIO2, will start heparin drip therapeutic, d/w Dr Pastor ok with therapeutic heparin. Possible IVC filter in the morning. Off note still seen in the abdominal part small bowel dilatation, patient still not passing gas. IVF will be started due to patient received contrast. Patient brought to ICU for monitoring. Objective - Vital Signs/Intake and Output Vital Signs (last 24 hours): Temp Pulse Resp BP Pulse Ox 98.8 F 111 H 20 92/59 L 96 12/29/17 20:52 12/29/17 20:52 12/29/17 20:52 12/29/17 20:52 12/29/17 20:52 Intake and Output: 12/29/17 12/30/17 18:59 06:59 Intake Total 1275 Output Total 720 Balance 555 - Medications Medications: Current Medications Albumin Human (Albumin Human 25% (12.5 Gm/50 Ml)) 25 gm IV Q6H MOHSEN Stop: 12/30/17 12:01 Last Admin: 12/29/17 17:45 Dose: 25 gm Hydromorphone HCl (Dilaudid) 0.5 mg IVP Q3H PRN PRN Reason: Pain, moderate (4-7) Last Admin: 12/29/17 14:41 Dose: 0.5 mg Piperacillin Sod/Tazobactam Sod (Zosyn 3.375 Gm Iv Premix) 3.375 gm in 50 mls @ 100 mls/hr IVPB Q8H [facility] PRN Reason: Protocol Last Admin: 12/29/17 21:43 Dose: 100 mls/hr Sodium Chloride (Sodium Chloride 0.9%) 1,000 mls @ 100 mls/hr IV .Q10H [facility] Last Admin: 12/29/17 21:06 Dose: 100 mls/hr Heparin Sodium/Sodium Chloride (Heparin 58597 Units/250ml 1/2 Normal Saline) 25 ,000 units in 250 mls @ 25.702 mls/hr IV .Q9H44M PRN; Protocol; 18 UNITS/KG/HR PRN Reason: ADJUST RATE PER PROTOCOL Last Admin: 12/29/17 21:07 Dose: 18 units/kg/hr, 25.702 mls/hr Pantoprazole Sodium (Protonix Inj) 40 mg IVP DAILY [facility] Last Admin: 12/29/17 09:13 Dose: 40 mg Tamsulosin HCl (Flomax) 0.4 mg PO DAILY [facility] Last Admin: 12/29/17 14:41 Dose: Not Given - Labs Labs: 12/29/17 17:07 12/29/17 17:07 PT 13.5 SECONDS (9.7-12.2) H 12/28/17 20:02 INR 1.23 (0.92-1.08) H 12/28/17 20:02 APTT 24 SECONDS (21-34) D 12/29/17 05:24
[2017-12-29] MEDS: Sodium Chloride 0.9% 1,000 ML IV SCH (23:07)
--- NOTE | 2017-12-30 00:25 | CP.PCM.CON ---
History of Present Illness - History of Present Illness History of Present Illness: Patient seen and evaluated B/E Pulmonary embolism BP holding Patient feels okay IV Heparin IVC filter in am Check ECHO Past Patient History - Past Medical History & Family History Past Medical History?: Yes - Past Social History Smoking Status: Never Smoked - CARDIAC Hx Hypertension: Yes - MUSCULOSKELETAL/RHEUMATOLOGICAL Hx Falls: No - GASTROINTESTINAL Other/Comment: Abdominal hernia x1 year. - PSYCHIATRIC Hx Substance Use: No - SURGICAL HISTORY Hx Surgeries: No - ANESTHESIA Hx Anesthesia: No Hx Anesthesia Reactions: No Hx Malignant Hyperthermia: No Has any member of the family had a problem w/ anesthesia?: No Meds Allergies/Adverse Reactions: Allergies Allergy/AdvReac Type Severity Reaction Status Date / Time No Known Allergies Allergy Verified 12/28/17 18:28 - Medications Medications: Current Medications Albumin Human (Albumin Human 25% (12.5 Gm/50 Ml)) 25 gm IV Q6H [facility] Stop: 12/30/17 12:01 Last Admin: 12/29/17 22:59 Dose: 25 gm Hydromorphone HCl (Dilaudid) 0.5 mg IVP Q3H PRN PRN Reason: Pain, moderate (4-7) Last Admin: 12/29/17 14:41 Dose: 0.5 mg Piperacillin Sod/Tazobactam Sod (Zosyn 3.375 Gm Iv Premix) 3.375 gm in 50 mls @ 100 mls/hr IVPB Q8H [facility] PRN Reason: Protocol Last Admin: 12/29/17 21:43 Dose: 100 mls/hr Heparin Sodium/Sodium Chloride (Heparin 33310 Units/250ml 1/2 Normal Saline) 25 ,000 units in 250 mls @ 25.702 mls/hr IV .Q9H44M PRN; Protocol; 18 UNITS/KG/HR PRN Reason: ADJUST RATE PER PROTOCOL Last Admin: 12/29/17 21:07 Dose: 18 units/kg/hr, 25.702 mls/hr Sodium Chloride (Sodium Chloride 0.9%) 1,000 mls @ 150 mls/hr IV .Q6H40M [facility] Last Admin: 12/29/17 23:07 Dose: 150 mls/hr Pantoprazole Sodium (Protonix Inj) 40 mg IVP DAILY [facility] Last Admin: 12/29/17 09:13 Dose: 40 mg Tamsulosin HCl (Flomax) 0.4 mg PO DAILY [facility] Last Admin: 12/29/17 14:41 Dose: Not Given Results - Vital Signs Recent Vital Signs: Last Vital Signs Temp 99.2 F 12/30/17 00:22 Pulse 92 H 12/30/17 00:00 Resp 24 12/30/17 00:00 BP 93/58 L 12/29/17 23:38 Pulse Ox 98 12/30/17 00:00 - Labs Result Diagrams: 12/29/17 17:07 12/29/17 17:07 Labs: Laboratory Results - last 24 hr 12/29/17 12/29/17 12/29/17 05:24 05:24 05:24 WBC 14.2 H RBC 4.60 Hgb 14.2 Hct 41.6 MCV 90.4 D MCH 30.9 MCHC 34.1 RDW 13.6 Plt Count 303 MPV 8.3 Neut % (Auto) 87.1 H Lymph % (Auto) 3.5 L [place] % (Auto) 8.6 Eos % (Auto) 0.6 Baso % (Auto) 0.2 Neut # (Auto) 12.4 H Lymph # (Auto) 0.5 L [place] # (Auto) 1.2 H Eos # (Auto) 0.1 Baso # (Auto) 0.0 Neutrophils % (Manual) 84 H Band Neutrophils % 2 Lymphocytes % (Manual) 4 L Monocytes % (Manual) 9 Eosinophils % (Manual) 1 Platelet Estimate Normal RBC Morphology APTT 24 D Puncture Site pCO2 pO2 HCO3 ABG pH ABG Total CO2 ABG O2 Saturation ABG Base Excess ABG Hemoglobin ABG Carboxyhemoglobin POC ABG HHb (Measured) ABG Methemoglobin Ruddy Test Hgb O2 Saturation Liter Flow Sodium 137 Potassium 3.5 L Chloride 99 Carbon Dioxide 29 Anion Gap 13 BUN 42 H Creatinine 1.8 H Est GFR ( Amer) 48 Est GFR (Non-Af Amer) 40 Random Glucose 121 H Lactic Acid Calcium 8.2 L Phosphorus 4.5 Magnesium 2.3 Total Bilirubin 1.6 H AST 31 ALT 51 Alkaline Phosphatase 54 Troponin I NT-Pro-B Natriuret Pep Total Protein 6.0 L Albumin 3.2 L Globulin 2.9 Albumin/Globulin Ratio 1.1 Urine Color Urine Clarity Urine pH Ur Specific [place] Urine Protein Urine Glucose (UA) Urine Ketones Urine Blood Urine Nitrate Urine Bilirubin Urine Urobilinogen Ur Leukocyte Esterase Urine WBC (Auto) Urine RBC (Auto) Ur Squamous Epith Cells Ur Random Creatinine Ur Random Sodium Ur Random Phosphorus Ur Random Uric Acid Ur Random Glucose Ur Random Calcium Urine Opiates Screen Urine Methadone Screen Ur Barbiturates Screen Ur Phencyclidine Scrn Ur Amphetamines Screen U Benzodiazepines Scrn U Oth Cocaine Metabols U Cannabinoids Screen 12/29/17 12/29/17 12/29/17 16:23 17:07 17:07 WBC 11.0 H RBC 4.40 Hgb 14.1 Hct 40.4 MCV 91.7 MCH 32.0 H MCHC 34.9 RDW 13.5 Plt Count 259 MPV 7.8 Neut % (Auto) 82.3 H Lymph % (Auto) 5.1 L [place] % (Auto) 11.4 H Eos % (Auto) 0.9 Baso % (Auto) 0.3 Neut # (Auto) 9.0 H Lymph # (Auto) 0.6 L [place] # (Auto) 1.2 H Eos # (Auto) 0.1 Baso # (Auto) 0.0 Neutrophils % (Manual) 91 H Band Neutrophils % 1 Lymphocytes % (Manual) 4 L Monocytes % (Manual) 4 Eosinophils % (Manual) Platelet Estimate Normal RBC Morphology Normal APTT Puncture Site Lba pCO2 40 pO2 72 L HCO3 31.2 H ABG pH 7.51 H ABG Total CO2 33.1 H ABG O2 Saturation 97.4 ABG Base Excess 8.2 H ABG Hemoglobin 13.5 ABG Carboxyhemoglobin 2.8 H POC ABG HHb (Measured) 2.5 ABG Methemoglobin 1.2 Ruddy Test Pos Hgb O2 Saturation 93.5 L Liter Flow 4.0 Sodium 139 Potassium 3.5 L Chloride 101 Carbon Dioxide 30 Anion Gap 11 BUN 37 H Creatinine 1.6 H Est GFR ( Amer) 55 Est GFR (Non-Af Amer) 46 Random Glucose 116 H Lactic Acid Calcium 8.1 L Phosphorus 2.7 Magnesium 2.4 H Total Bilirubin 2.0 H AST 24 ALT 46 Alkaline Phosphatase 56 Troponin I 0.1500 H* NT-Pro-B Natriuret Pep Total Protein 5.8 L Albumin 3.1 L Globulin 2.7 Albumin/Globulin Ratio 1.2 Urine Color Urine Clarity Urine pH Ur Specific [place] Urine Protein Urine Glucose (UA) Urine Ketones Urine Blood Urine Nitrate Urine Bilirubin Urine Urobilinogen Ur Leukocyte Esterase Urine WBC (Auto) Urine RBC (Auto) Ur Squamous Epith Cells Ur Random Creatinine Ur Random Sodium Ur Random Phosphorus Ur Random Uric Acid Ur Random Glucose Ur Random Calcium Urine Opiates Screen Urine Methadone Screen Ur Barbiturates Screen Ur Phencyclidine Scrn Ur Amphetamines Screen U Benzodiazepines Scrn U Oth Cocaine Metabols U Cannabinoids Screen 12/29/17 12/29/17 12/29/17 17:07 19:43 20:05 WBC RBC Hgb Hct MCV MCH MCHC RDW Plt Count MPV Neut % (Auto) Lymph % (Auto) [place] % (Auto) Eos % (Auto) Baso % (Auto) Neut # (Auto) Lymph # (Auto) [place] # (Auto) Eos # (Auto) Baso # (Auto) Neutrophils % (Manual) Band Neutrophils % Lymphocytes % (Manual) Monocytes % (Manual) Eosinophils % (Manual) Platelet Estimate RBC Morphology APTT Puncture Site pCO2 pO2 HCO3 ABG pH ABG Total CO2 ABG O2 Saturation ABG Base Excess ABG Hemoglobin ABG Carboxyhemoglobin POC ABG HHb (Measured) ABG Methemoglobin Ruddy Test Hgb O2 Saturation Liter Flow Sodium Potassium Chloride Carbon Dioxide Anion Gap BUN Creatinine Est GFR ( Amer) Est GFR (Non-Af Amer) Random Glucose Lactic Acid 1.3 Calcium Phosphorus Magnesium Total Bilirubin AST ALT Alkaline Phosphatase Troponin I NT-Pro-B Natriuret Pep 67.0 Total Protein Albumin Globulin Albumin/Globulin Ratio Urine Color Yellow Urine Clarity Clear Urine pH 5.0 Ur Specific [place] 1.021 Urine Protein Negative Urine Glucose (UA) Normal Urine Ketones Negative Urine Blood Negative Urine Nitrate Negative Urine Bilirubin Negative Urine Urobilinogen Normal Ur Leukocyte Esterase Neg Urine WBC (Auto) 4 Urine RBC (Auto) < 1 Ur Squamous Epith Cells < 1 Ur Random Creatinine Ur Random Sodium Ur Random Phosphorus Ur Random Uric Acid Ur Random Glucose Ur Random Calcium Urine Opiates Screen Urine Methadone Screen Ur Barbiturates Screen Ur Phencyclidine Scrn Ur Amphetamines Screen U Benzodiazepines Scrn U Oth Cocaine Metabols U Cannabinoids Screen 12/29/17 12/29/17 20:05 20:05 WBC RBC Hgb Hct MCV MCH MCHC RDW Plt Count MPV Neut % (Auto) Lymph % (Auto) [place] % (Auto) Eos % (Auto) Baso % (Auto) Neut # (Auto) Lymph # (Auto) [place] # (Auto) Eos # (Auto) Baso # (Auto) Neutrophils % (Manual) Band Neutrophils % Lymphocytes % (Manual) Monocytes % (Manual) Eosinophils % (Manual) Platelet Estimate RBC Morphology APTT Puncture Site pCO2 pO2 HCO3 ABG pH ABG Total CO2 ABG O2 Saturation ABG Base Excess ABG Hemoglobin ABG Carboxyhemoglobin POC ABG HHb (Measured) ABG Methemoglobin Ruddy Test Hgb O2 Saturation Liter Flow Sodium Potassium Chloride Carbon Dioxide Anion Gap BUN Creatinine Est GFR ( Amer) Est GFR (Non-Af Amer) Random Glucose Lactic Acid Calcium Phosphorus Magnesium Total Bilirubin AST ALT Alkaline Phosphatase Troponin I NT-Pro-B Natriuret Pep Total Protein Albumin Globulin Albumin/Globulin Ratio Urine Color Urine Clarity Urine pH Ur Specific [place] Urine Protein Urine Glucose (UA) Urine Ketones Urine Blood Urine Nitrate Urine Bilirubin Urine Urobilinogen Ur Leukocyte Esterase Urine WBC (Auto) Urine RBC (Auto) Ur Squamous Epith Cells Ur Random Creatinine 210.9 Ur Random Sodium 39 Ur Random Phosphorus 108.3 Ur Random Uric Acid 98.3 Ur Random Glucose < 20 Ur Random Calcium < 1.0 Urine Opiates Screen Positive H Urine Methadone Screen Negative Ur Barbiturates Screen Negative Ur Phencyclidine Scrn Negative Ur Amphetamines Screen Negative U Benzodiazepines Scrn Negative U Oth Cocaine Metabols Negative U Cannabinoids Screen Negative
[2017-12-30] MEDS: HYDROmorphone 0.5 mg/0.5 ml ISec IVP PRN (03:45)
[2017-12-30 03:46] LABS: BASO % 0.3 % (0.0-2.0); EOS # 0.2 K/uL (0.0-0.7); EOS % 1.6 % (0.0-4.0); LYMPH # 0.7 K/uL (1.0-4.3); LYMPH % 7.5 % (20.0-40.0); MEAN CELL VOLUME 92.4 fL (80.0-94.0); MEAN CORPUSCULAR HEMOGLOBIN 31.4 pg (27.0-31.0); MEAN PLATELET VOLUME 8.3 fL (7.2-11.7); MONO % 10.5 % (0.0-10.0); NEUT # 7.9 K/uL (1.8-7.0); NEUT % 80.1 % (50.0-75.0); PLATELET COUNT 226 K/uL (130-400); RBC 3.81 Mil/uL (4.40-5.90); RED CELL DISTRIBUTION WIDTH 13.6 % (11.5-14.5); WHITE BLOOD COUNT 9.9 K/uL (4.8-10.8)
[2017-12-30 03:59] LABS: ALB/GLOB RATIO 1.3 (1.0-2.1); ALBUMIN 3.2 g/dL (3.5-5.0); ALT/SGPT 41 U/L (21-72); AST/SGOT 22 U/L (17-59); BLOOD UREA NITROGEN 31 mg/dL (9-20); CALCIUM 8.3 mg/dl (8.6-10.4); GFR AFRICAN-AMERICAN > 60; GFR NON-AFRICAN AMERICAN 58
[2017-12-30 04:11] LABS: INR 1.5; PROTHROMBIN TIME 16.1 SECONDS (9.7-12.2)
[2017-12-30 04:19] LABS: CK-MB 1.02 ng/mL (0.0-3.38); TROPONIN I 0.142 ng/mL (0.00-0.120)
[2017-12-30] MEDS: Piperacill/Tazo 3.375gm in Dex 3.375 GM/50 ML BAG IVPB SCH ×3 (05:55→22:00)
[2017-12-30] MEDS: Albumin Human 25% (12.5 gm/50 ml) IV SCH ×2 (06:15→12:00)
[2017-12-30] MEDS: Sodium Chloride 0.9% 1,000 ML IV SCH ×3 (06:15→20:05)
[2017-12-30 06:24] LABS: EOSINOPHIL 1 % (0-4); LYMPHOCYTE 7 % (20-40); MONOCYTE 12 % (0-10); NEUTROPHIL 80 % (50-75); PLATELET ESTIMATE NORMAL (NORMAL); TOTAL CELLS COUNTED 100
--- NOTE | 2017-12-30 07:53 | CT ---
CT chest pulmonary angiogram History: Shortness of breath. Evaluate for pulmonary embolism. Comparison: X-ray dated 12/29/2017 Technique: Axial computed tomographic angiographic images of the chest were performed with intravenous contrast utilizing CT angiography protocol. This CT exam was performed using one or more of the following dose reduction techniques: Automated exposure control, adjustment of the mA and/or kV according to patient size, and/or use of iterative reconstruction technique. Findings: Study somewhat limited by motion artifact. Multiple extensive bilateral pulmonary emboli are identified including a saddle embolus best seen on series 2, image 83. The emboli are nonocclusive and occlusive with occlusive components best noted in the left lower lobe pulmonary arteries. Visualized aorta grossly preserved. Patchy areas of atelectasis within both lower lobes and lingula with more focal consolidative changes in the right lower lobe. Suggestion of a filling defect and or retained secretions within the posterior right trachea on series 4, image 29. Moderate to severe right heart strain. Degenerative changes in the spine. No pleural effusion. Fatty infiltration the liver. Incompletely characterized central liver density best seen on series 3, image 84 measuring up to 1.4 centimeters in the right hepatic lobe demonstrating a Hounsfield unit attenuation of 11, indeterminate. Diminutive spleen. Nodular thickening of the right adrenal gland measuring up to 1.7 centimeters demonstrating a Hounsfield unit attenuation of 6. Incidentally noted are a few thickened and distended loops of small bowel seen within the left upper abdomen. Impression: 1. Multiple extensive bilateral pulmonary emboli are identified including a saddle pulmonary embolism best seen on series 2, image 83. 2. Additional findings as above. These findings were preliminarily reported at 8:18 p.m. on 12/29/[address] Shay Jimenez from [employer].
--- NOTE | 2017-12-30 08:23 | CP.PCM.PN ---
Subjective - Date & Time of Evaluation Date of Evaluation: 12/30/17 Time of Evaluation: 08:30 - Subjective Subjective: chardt reviewed patient transferred to floor yesterdayhad hypotensive episode work ups showed PE and elevated troponins started on heparin treatment transferred to ICU IVF antibiotic continued impoved leukocytosis improved Creatinine patient seen, conversant awake aware of condition is NPO for IVC insertion no current complaints Objective - Vital Signs/Intake and Output Vital Signs (last 24 hours): Temp Pulse Resp BP Pulse Ox 99.4 F 86 26 H 108/66 99 12/30/17 06:30 12/30/17 06:00 12/30/17 06:00 12/30/17 05:33 12/30/17 06:00 Intake and Output: 12/30/17 12/30/17 06:59 18:59 Intake Total 1904.9 351.4 Output Total 350 Balance 1554.9 351.4 - Medications Medications: Current Medications Albumin Human (Albumin Human 25% (12.5 Gm/50 Ml)) 25 gm IV Q6H [facility] Stop: 12/30/17 12:01 Last Admin: 12/30/17 06:15 Dose: 25 gm Hydromorphone HCl (Dilaudid) 0.5 mg IVP Q3H PRN PRN Reason: Pain, moderate (4-7) Last Admin: 12/30/17 03:45 Dose: 0.5 mg Piperacillin Sod/Tazobactam Sod (Zosyn 3.375 Gm Iv Premix) 3.375 gm in 50 mls @ 100 mls/hr IVPB Q8H [facility] PRN Reason: Protocol Last Admin: 12/30/17 05:55 Dose: 100 mls/hr Heparin Sodium/Sodium Chloride (Heparin 36116 Units/250ml 1/2 Normal Saline) 25 ,000 units in 250 mls @ 25.702 mls/hr IV .Q9H44M PRN; Protocol; 18 UNITS/KG/HR PRN Reason: ADJUST RATE PER PROTOCOL Last Titration: 12/30/17 06:47 Dose: 15 units/kg/hr, 21.419 mls/hr Sodium Chloride (Sodium Chloride 0.9%) 1,000 mls @ 150 mls/hr IV .Q6H40M [facility] Last Admin: 12/30/17 06:15 Dose: 150 mls/hr Pantoprazole Sodium (Protonix Inj) 40 mg IVP DAILY [facility] Last Admin: 12/29/17 09:13 Dose: 40 mg Tamsulosin HCl (Flomax) 0.4 mg PO DAILY [facility] Last Admin: 12/29/17 14:41 Dose: Not Given - Labs Labs: 12/30/17 03:38 12/30/17 03:38 PT 16.1 SECONDS (9.7-12.2) H 12/30/17 03:38 INR 1.5 12/30/17 03:38 APTT 196 SECONDS (21-34) H* D 12/30/17 03:38 - Constitutional Appears: Non-toxic, No Acute Distress - Head Exam Head Exam: ATRAUMATIC, NORMOCEPHALIC - Eye Exam Eye Exam: Normal appearance. absent: Nystagmus - ENT Exam ENT Exam: Mucous Membranes Moist - Neck Exam Neck Exam: Full ROM. absent: Tenderness - Respiratory Exam Respiratory Exam: Clear to Ausculation Bilateral, NORMAL BREATHING PATTERN - Cardiovascular Exam Cardiovascular Exam: REGULAR RHYTHM - GI/Abdominal Exam GI & Abdominal Exam: Soft, Tenderness (only on deep palpation post op area) - Back Exam Back Exam: Full ROM. absent: rash noted - Neurological Exam Neurological Exam: Alert, Awake, Normal Gait, Oriented x3 - Psychiatric Exam Psychiatric exam: Normal Affect, Normal Mood - Skin Skin Exam: Intact, Normal Color Assessment and Plan - Assessment and Plan (Free Text) Assessment: Patient with PE-ongoing heparin treatment LE doppler inremarkable IVC filter as per surgery no bleeding Incarcerated Hernia with resection post op day 2, improving no vomiting . minor post op pain on antiobiotic Dehydration with ARF-resolved Hypokalemia persistent , with resolved ARF-with GI loss, will supplement Debility-PT rehab accordingly Elevated TRoponis cardio on case GI prophylaxis ongoing further discussion of condition and plan with patient
[2017-12-30] MEDS: Heparin25000 units/250ml 1/2NS 25,000 UNITS/250 ML BAG IV PRN ×2 (10:16→12:03)
[2017-12-30] MEDS ORDERED: Lidocaine Hydrochloride 5 ML INJ ONE (11:00)
[2017-12-30] MEDS ORDERED: Iohexol 240 200 ML ONE (11:00)
[2017-12-30] MEDS ORDERED: HEPARIN-NS 5,000 UNITS/500 ML 5,000 UNIT/500 ML BAG IV ONE (11:01)
[2017-12-30] MEDS ORDERED: Midazolam 2 MG/2 ML VIAL ONE (11:41)
--- NOTE | 2017-12-30 12:27 | PCM.SURG1 ---
Surgeon's Initial Post Op Note - Surgeon's Notes Surgeon: Dr. Hung Dumont Repair Table Operator: Domingo James PGY1 Type of Anesthesia: IV Sedation Pre-Operative Diagnosis: Bilateral Pulmonary Embolism Operative Findings: See operative dictation Post-Operative Diagnosis: Same Operation Performed: Replaceable Inferior Vena Cava Filter placement through the right femoral vein Specimen/Specimens Removed: none Estimated Blood Loss: EBL {In ML}: 5 Blood Products Given: N/A Drains Used: No Drains Post-Op Condition: Good Date of Surgery/Procedure: 12/30/17 Time of Surgery/Procedure: 12:28
--- NOTE | 2017-12-30 13:03 | RAD ---
PROCEDURE: Intraoperative Fluoroscopy. HISTORY: PE FINDINGS: Fluoroscopic assistance was provided. Fluoroscopy time = 101.6 seconds. Radiation dose = 1.40 mGy-cm. Please refer to the operative report from [facility].
--- NOTE | 2017-12-30 13:17 | CP.CCUPN ---
CCU Subjective - Physician Review Subjective (Free Text): 12/30/17 13:11 52 yo male with PMHx of HTN and incarcerated abdominal hernia, s/p reduction and SB resection due to ischemic changes. Subsequently found to have small saddle and bilateral proximal occlusive pulmonary embolisms. Pt seen and examined at bedside. No complains of minimal incision site abdominal pain. Patient denies chest pain, SOB, palpitations, cough, nausea. IVC filter placed this morning. CCU Objective - Vital Signs / Intake & Output Vital Signs (Last 4 hours): Vital Signs Pulse Resp Pulse Ox 12/30/17 09:30 87 31 H 100 Intake and Output (Last 8hrs): Intake & Output 12/29/17 12/30/17 12/30/17 22:59 06:59 14:59 Intake Total 300.7 1679.2 877.8 Output Total 200 350 500 Balance 100.7 1329.2 377.8 Weight 311 lb 3.52 oz Intake: IV 175 175 Intake, IV Amount 300.7 1504.2 702.8 Left Forearm 175 1150 600 Left Forearm Y port 25.7 154.2 102.8 Right Hand 100 200 Output: Urine 200 350 500 Urine, Voided 200 350 500 Other: # Voids Urine, Voided 0 250 - Physical Exam Head: Positive for: Atraumatic, Normocephalic Extroacular Muscles: Positive for: EOMI Mouth: Positive for: Moist Mucous Membranes Respiratory/Chest: Positive for: Clear to Auscultation. Negative for: Respiratory Distress, Accessory Muscle Use, Wheezes, Rales, Rhonchi Cardiovascular: Positive for: Regular Rate and Rhythm, Normal S1, S2. Negative for: Murmurs, Rub, Gallop, Muffled Abdomen: Positive for: Tenderness (incision site tenderness), Normal Bowel Sounds. Negative for: Distention, Peritoneal Signs, Rebound, Guarding Lower Extremity: Positive for: Normal Inspection. Negative for: Edema, CALF TENDERNESS Neurological: Positive for: GCS=15, Speech Normal Skin: Positive for: Warm, Dry, Normal Color. Negative for: Rashes Psychiatric: Positive for: Alert, Oriented x 3, Normal Insight, Normal Concentration - Medications Active Medications: Active Medications Generic Name Dose Route Start Last Admin Trade Name Freq PRN Reason Stop Dose Admin Hydromorphone HCl 0.5 mg 12/29/17 06:11 12/30/17 03:45 Dilaudid IVP 0.5 mg Q3H PRN Administration Pain, moderate (4-7) Piperacillin Sod/Tazobactam Sod 3.375 gm in 50 mls @ 100 mls/hr 12/29/17 05: 00 12/30/17 12:45 Zosyn 3.375 Gm Iv Premix IVPB 100 mls/hr Q8H MOHSEN Administration Protocol Heparin Sodium/Sodium Chloride 25,000 units in 250 mls @ 25.702 mls/hr 20:21 12/30/17 12:03 Heparin 70973 Units/250ml 1/2 Normal Saline IV 15 units/kg/hr .[id number] PRN 21.419 mls/hr ADJUST RATE PER PROTOCOL Administration Protocol 18 UNITS/KG/HR Sodium Chloride 1,000 mls @ 150 mls/hr 12/29/17 23:15 12/30/17 06:15 Sodium Chloride 0.9% IV 150 mls/hr .[id number] OMHSEN Administration Pantoprazole Sodium 40 mg 12/29/17 10:00 12/29/17 09:13 Protonix Inj IVP 40 mg DAILY MOHSEN Administration Tamsulosin HCl 0.4 mg 12/29/17 14:30 12/29/17 14:41 Flomax PO Not Given DAILY MOHSEN - Patient Studies Lab Studies: Microbiology Studies 12/28/17 22:42 Gram Stain - Final Ascitic Fluid Body Fluid Culture - Preliminary NO GROWTH AFTER 24 HOURS 12/29/17 06:31 MRSA Culture (Admit) - Preliminary Nose Lab Studies 12/30/17 12/30/17 12/30/17 Range/Units 03:38 03:38 03:38 WBC (4.8-10.8) K/uL RBC (4.40-5.90) Mil/uL Hgb (12.0-18.0) g/dL Hct (35.0-51.0) % MCV (80.0-94.0) fL MCH (27.0-31.0) pg MCHC (33.0-37.0) g/dL RDW (11.5-14.5) % Plt Count (130-400) K/uL MPV (7.2-11.7) fL Neut % (Auto) (50.0-75.0) % Lymph % (Auto) (20.0-40.0) % Stark % (Auto) (0.0-10.0) % Eos % (Auto) (0.0-4.0) % Baso % (Auto) (0.0-2.0) % Neut # (Auto) (1.8-7.0) K/uL Lymph # (Auto) (1.0-4.3) K/uL Stark # (Auto) (0.0-0.8) K/uL Eos # (Auto) (0.0-0.7) K/uL Baso # (Auto) (0.0-0.2) K/uL Neutrophils % (Manual) (50-75) % Band Neutrophils % (0-2) % Lymphocytes % (Manual) (20-40) % Monocytes % (Manual) (0-10) % Eosinophils % (Manual) (0-4) % Platelet Estimate (NORMAL) RBC Morphology PT 16.1 H (9.7-12.2) SECONDS INR 1.5 APTT 196 H* D (21-34) SECONDS Puncture Site pCO2 (35-45) mm/Hg pO2 (80-100) mm/Hg HCO3 (21-28) mmol/L ABG pH (7.35-7.45) ABG Total CO2 (22-28) mmol/L ABG O2 Saturation (95-98) % ABG Base Excess (-2.0-3.0) mmol/L ABG Hemoglobin (11.7-17.4) g/dL ABG Carboxyhemoglobin (0.5-1.5) % POC ABG HHb (Measured) (0.0-5.0) % ABG Methemoglobin (0.0-3.0) % Ruddy Test Hgb O2 Saturation (95.0-98.0) % Liter Flow Sodium 142 (132-148) mmol/L Potassium 3.3 L (3.6-5.2) mmol/L Chloride 102 (98-107) mmol/L Carbon Dioxide 30 (22-30) mmol/L Anion Gap 13 (10-20) BUN 31 H (9-20) mg/dL Creatinine 1.3 (0.8-1.5) mg/dL Est GFR ( Amer) > 60 Est GFR (Non-Af Amer) 58 Random Glucose 103 (75-110) mg/dL Lactic Acid 0.8 (0.7-2.1) mmol/L Calcium 8.3 L (8.6-10.4) mg/dl Phosphorus 2.6 (2.5-4.5) mg/dL Magnesium 2.6 H (1.6-2.3) mg/dL Total Bilirubin 1.7 H (0.2-1.3) mg/dL AST 22 (17-59) U/L ALT 41 (21-72) U/L Alkaline Phosphatase 47 (38-126) U/L Total Creatine Kinase (55-170) U/L CK-MB (Mass) (0.0-3.38) ng/mL Troponin I (0.00-0.120) ng/mL NT-Pro-B Natriuret Pep (0-900) pg/mL Total Protein 5.7 L (6.3-8.3) g/dL Albumin 3.2 L (3.5-5.0) g/dL Globulin 2.5 (2.2-3.9) gm/dL Albumin/Globulin Ratio 1.3 (1.0-2.1) Urine Color (YELLOW) Urine Clarity (Clear) Urine pH (5.0-8.0) Ur Specific [place] (1.003-1.030) Urine Protein (NEGATIVE) mg/dL Urine Glucose (UA) (Normal) mg/dL Urine Ketones (NEGATIVE) mg/dL Urine Blood (NEGATIVE) Urine Nitrate (NEGATIVE) Urine Bilirubin (NEGATIVE) Urine Urobilinogen (0.2-1.0) mg/dL Ur Leukocyte Esterase (Negative) Teresa/uL Urine WBC (Auto) (0-5) /hpf Urine RBC (Auto) (0-3) /hpf Ur Squamous Epith Cells (0-5) /hpf Ur Random Creatinine mg/dL Ur Random Sodium mmol/L Ur Random Phosphorus mg/dL Ur Random Uric Acid mg/dL Ur Random Glucose mg/dL Ur Random Calcium mg/dL Urine Opiates Screen (NEGATIVE) Urine Methadone Screen (NEGATIVE) Ur Barbiturates Screen (NEGATIVE) Ur Phencyclidine Scrn (NEGATIVE) Ur Amphetamines Screen (NEGATIVE) U Benzodiazepines Scrn (NEGATIVE) U Oth Cocaine Metabols (NEGATIVE) U Cannabinoids Screen (NEGATIVE) 12/30/17 12/30/1712/29/18 Range/Units 03:38 03:38 20:05 WBC 9.9 (4.8-10.8) K/uL RBC 3.81 L (4.40-5.90) Mil/uL Hgb 12.0 D (12.0-18.0) g/dL Hct 35.2 (35.0-51.0) % MCV 92.4 (80.0-94.0) fL MCH 31.4 H (27.0-31.0) pg MCHC 34.0 (33.0-37.0) g/dL RDW 13.6 (11.5-14.5) % Plt Count 226 (130-400) K/uL MPV 8.3 (7.2-11.7) fL Neut % (Auto) 80.1 H (50.0-75.0) % Lymph % (Auto) 7.5 L (20.0-40.0) % Stark % (Auto) 10.5 H (0.0-10.0) % Eos % (Auto) 1.6 (0.0-4.0) % Baso % (Auto) 0.3 (0.0-2.0) % Neut # (Auto) 7.9 H (1.8-7.0) K/uL Lymph # (Auto) 0.7 L (1.0-4.3) K/uL Stark # (Auto) 1.0 H (0.0-0.8) K/uL Eos # (Auto) 0.2 (0.0-0.7) K/uL Baso # (Auto) 0.0 (0.0-0.2) K/uL Neutrophils % (Manual) 80 H (50-75) % Band Neutrophils % (0-2) % Lymphocytes % (Manual) 7 L (20-40) % Monocytes % (Manual) 12 H (0-10) % Eosinophils % (Manual) 1 (0-4) % Platelet Estimate Normal (NORMAL) RBC Morphology Normal PT (9.7-12.2) SECONDS INR APTT (21-34) SECONDS Puncture Site pCO2 (35-45) mm/Hg pO2 (80-100) mm/Hg HCO3 (21-28) mmol/L ABG pH (7.35-7.45) ABG Total CO2 (22-28) mmol/L ABG O2 Saturation (95-98) % ABG Base Excess (-2.0-3.0) mmol/L ABG Hemoglobin (11.7-17.4) g/dL ABG Carboxyhemoglobin (0.5-1.5) % POC ABG HHb (Measured) (0.0-5.0) % ABG Methemoglobin (0.0-3.0) % Ruddy Test Hgb O2 Saturation (95.0-98.0) % Liter Flow Sodium (132-148) mmol/L Potassium (3.6-5.2) mmol/L Chloride (98-107) mmol/L Carbon Dioxide (22-30) mmol/L Anion Gap (10-20) BUN (9-20) mg/dL Creatinine (0.8-1.5) mg/dL Est GFR ( Amer) Est GFR (Non-Af Amer) Random Glucose (75-110) mg/dL Lactic Acid (0.7-2.1) mmol/L Calcium (8.6-10.4) mg/dl Phosphorus (2.5-4.5) mg/dL Magnesium (1.6-2.3) mg/dL Total Bilirubin (0.2-1.3) mg/dL AST (17-59) U/L ALT (21-72) U/L Alkaline Phosphatase (38-126) U/L Total Creatine Kinase 166 (55-170) U/L CK-MB (Mass) 1.02 (0.0-3.38) ng/mL Troponin I 0.1420 H* (0.00-0.120) ng/mL NT-Pro-B Natriuret Pep (0-900) pg/mL Total Protein (6.3-8.3) g/dL Albumin (3.5-5.0) g/dL Globulin (2.2-3.9) gm/dL Albumin/Globulin Ratio (1.0-2.1) Urine Color (YELLOW) Urine Clarity (Clear) Urine pH (5.0-8.0) Ur Specific [place] (1.003-1.030) Urine Protein (NEGATIVE) mg/dL Urine Glucose (UA) (Normal) mg/dL Urine Ketones (NEGATIVE) mg/dL Urine Blood (NEGATIVE) Urine Nitrate (NEGATIVE) Urine Bilirubin (NEGATIVE) Urine Urobilinogen (0.2-1.0) mg/dL Ur Leukocyte Esterase (Negative) Teresa/uL Urine WBC (Auto) (0-5) /hpf Urine RBC (Auto) (0-3) /hpf Ur Squamous Epith Cells (0-5) /hpf Ur Random Creatinine mg/dL Ur Random Sodium mmol/L Ur Random Phosphorus mg/dL Ur Random Uric Acid mg/dL Ur Random Glucose mg/dL Ur Random Calcium mg/dL Urine Opiates Screen Positive H (NEGATIVE) Urine Methadone Screen Negative (NEGATIVE) Ur Barbiturates Screen Negative (NEGATIVE) Ur Phencyclidine Scrn Negative (NEGATIVE) Ur Amphetamines Screen Negative (NEGATIVE) U Benzodiazepines Scrn Negative (NEGATIVE) U Oth Cocaine Metabols Negative (NEGATIVE) U Cannabinoids Screen Negative (NEGATIVE) 12/29/17 12/29/17 12/29/17 Range/Units 20:05 20:05 19:43 WBC (4.8-10.8) K/uL RBC (4.40-5.90) Mil/uL Hgb (12.0-18.0) g/dL Hct (35.0-51.0) % MCV (80.0-94.0) fL MCH (27.0-31.0) pg MCHC (33.0-37.0) g/dL RDW (11.5-14.5) % Plt Count (130-400) K/uL MPV (7.2-11.7) fL Neut % (Auto) (50.0-75.0) % Lymph % (Auto) (20.0-40.0) % Stark % (Auto) (0.0-10.0) % Eos % (Auto) (0.0-4.0) % Baso % (Auto) (0.0-2.0) % Neut # (Auto) (1.8-7.0) K/uL Lymph # (Auto) (1.0-4.3) K/uL Stark # (Auto) (0.0-0.8) K/uL Eos # (Auto) (0.0-0.7) K/uL Baso # (Auto) (0.0-0.2) K/uL Neutrophils % (Manual) (50-75) % Band Neutrophils % (0-2) % Lymphocytes % (Manual) (20-40) % Monocytes % (Manual) (0-10) % Eosinophils % (Manual) (0-4) % Platelet Estimate (NORMAL) RBC Morphology PT (9.7-12.2) SECONDS INR APTT (21-34) SECONDS Puncture Site pCO2 (35-45) mm/Hg pO2 (80-100) mm/Hg HCO3 (21-28) mmol/L ABG pH (7.35-7.45) ABG Total CO2 (22-28) mmol/L ABG O2 Saturation (95-98) % ABG Base Excess (-2.0-3.0) mmol/L ABG Hemoglobin (11.7-17.4) g/dL ABG Carboxyhemoglobin (0.5-1.5) % POC ABG HHb (Measured) (0.0-5.0) % ABG Methemoglobin (0.0-3.0) % Ruddy Test Hgb O2 Saturation (95.0-98.0) % Liter Flow Sodium (132-148) mmol/L Potassium (3.6-5.2) mmol/L Chloride (98-107) mmol/L Carbon Dioxide (22-30) mmol/L Anion Gap (10-20) BUN (9-20) mg/dL Creatinine (0.8-1.5) mg/dL Est GFR ( Amer) Est GFR (Non-Af Amer) Random Glucose (75-110) mg/dL Lactic Acid (0.7-2.1) mmol/L Calcium (8.6-10.4) mg/dl Phosphorus (2.5-4.5) mg/dL Magnesium (1.6-2.3) mg/dL Total Bilirubin (0.2-1.3) mg/dL AST (17-59) U/L ALT (21-72) U/L Alkaline Phosphatase (38-126) U/L Total Creatine Kinase (55-170) U/L CK-MB (Mass) (0.0-3.38) ng/mL Troponin I (0.00-0.120) ng/mL NT-Pro-B Natriuret Pep 67.0 (0-900) pg/mL Total Protein (6.3-8.3) g/dL Albumin (3.5-5.0) g/dL Globulin (2.2-3.9) gm/dL Albumin/Globulin Ratio (1.0-2.1) Urine Color Yellow (YELLOW) Urine Clarity Clear (Clear) Urine pH 5.0 (5.0-8.0) Ur Specific [place] 1.021 (1.003-1.030) Urine Protein Negative (NEGATIVE) mg/dL Urine Glucose (UA) Normal (Normal) mg/dL Urine Ketones Negative (NEGATIVE) mg/dL Urine Blood Negative (NEGATIVE) Urine Nitrate Negative (NEGATIVE) Urine Bilirubin Negative (NEGATIVE) Urine Urobilinogen Normal (0.2-1.0) mg/dL Ur Leukocyte Esterase Neg (Negative) Teresa/uL Urine WBC (Auto) 4 (0-5) /hpf Urine RBC (Auto) < 1 (0-3) /hpf Ur Squamous Epith Cells < 1 (0-5) /hpf Ur Random Creatinine 210.9 mg/dL Ur Random Sodium 39 mmol/L Ur Random Phosphorus 108.3 mg/dL Ur Random Uric Acid 98.3 mg/dL Ur Random Glucose < 20 mg/dL Ur Random Calcium < 1.0 mg/dL Urine Opiates Screen (NEGATIVE) Urine Methadone Screen (NEGATIVE) Ur Barbiturates Screen (NEGATIVE) Ur Phencyclidine Scrn (NEGATIVE) Ur Amphetamines Screen (NEGATIVE) U Benzodiazepines Scrn (NEGATIVE) U Oth Cocaine Metabols (NEGATIVE) U Cannabinoids Screen (NEGATIVE) 12/29/17 12/29/17 12/29/17 Range/Units 17:07 17:07 17:07 WBC 11.0 H (4.8-10.8) K/uL RBC 4.40 (4.40-5.90) Mil/uL Hgb 14.1 (12.0-18.0) g/dL Hct 40.4 (35.0-51.0) % MCV 91.7 (80.0-94.0) fL MCH 32.0 H (27.0-31.0) pg MCHC 34.9 (33.0-37.0) g/dL RDW 13.5 (11.5-14.5) % Plt Count 259 (130-400) K/uL MPV 7.8 (7.2-11.7) fL Neut % (Auto) 82.3 H (50.0-75.0) % Lymph % (Auto) 5.1 L (20.0-40.0) % Stark % (Auto) 11.4 H (0.0-10.0) % Eos % (Auto) 0.9 (0.0-4.0) % Baso % (Auto) 0.3 (0.0-2.0) % Neut # (Auto) 9.0 H (1.8-7.0) K/uL Lymph # (Auto) 0.6 L (1.0-4.3) K/uL Stark # (Auto) 1.2 H (0.0-0.8) K/uL Eos # (Auto) 0.1 (0.0-0.7) K/uL Baso # (Auto) 0.0 (0.0-0.2) K/uL Neutrophils % (Manual) 91 H (50-75) % Band Neutrophils % 1 (0-2) % Lymphocytes % (Manual) 4 L (20-40) % Monocytes % (Manual) 4 (0-10) % Eosinophils % (Manual) (0-4) % Platelet Estimate Normal (NORMAL) RBC Morphology Normal PT (9.7-12.2) SECONDS INR APTT (21-34) SECONDS Puncture Site pCO2 (35-45) mm/Hg pO2 (80-100) mm/Hg HCO3 (21-28) mmol/L ABG pH (7.35-7.45) ABG Total CO2 (22-28) mmol/L ABG O2 Saturation (95-98) % ABG Base Excess (-2.0-3.0) mmol/L ABG Hemoglobin (11.7-17.4) g/dL ABG Carboxyhemoglobin (0.5-1.5) % POC ABG HHb (Measured) (0.0-5.0) % ABG Methemoglobin (0.0-3.0) % Ruddy Test Hgb O2 Saturation (95.0-98.0) % Liter Flow Sodium 139 (132-148) mmol/L Potassium 3.5 L (3.6-5.2) mmol/L Chloride 101 (98-107) mmol/L Carbon Dioxide 30 (22-30) mmol/L Anion Gap 11 (10-20) BUN 37 H (9-20) mg/dL Creatinine 1.6 H (0.8-1.5) mg/dL Est GFR ( Amer) 55 Est GFR (Non-Af Amer) 46 Random Glucose 116 H (75-110) mg/dL Lactic Acid 1.3 (0.7-2.1) mmol/L Calcium 8.1 L (8.6-10.4) mg/dl Phosphorus 2.7 (2.5-4.5) mg/dL Magnesium 2.4 H (1.6-2.3) mg/dL Total Bilirubin 2.0 H (0.2-1.3) mg/dL AST 24 (17-59) U/L ALT 46 (21-72) U/L Alkaline Phosphatase 56 (38-126) U/L Total Creatine Kinase (55-170) U/L CK-MB (Mass) (0.0-3.38) ng/mL Troponin I 0.1500 H* (0.00-0.120) ng/mL NT-Pro-B Natriuret Pep (0-900) pg/mL Total Protein 5.8 L (6.3-8.3) g/dL Albumin 3.1 L (3.5-5.0) g/dL Globulin 2.7 (2.2-3.9) gm/dL Albumin/Globulin Ratio 1.2 (1.0-2.1) Urine Color (YELLOW) Urine Clarity (Clear) Urine pH (5.0-8.0) Ur Specific [place] (1.003-1.030) Urine Protein (NEGATIVE) mg/dL Urine Glucose (UA) (Normal) mg/dL Urine Ketones (NEGATIVE) mg/dL Urine Blood (NEGATIVE) Urine Nitrate (NEGATIVE) Urine Bilirubin (NEGATIVE) Urine Urobilinogen (0.2-1.0) mg/dL Ur Leukocyte Esterase (Negative) Teresa/uL Urine WBC (Auto) (0-5) /hpf Urine RBC (Auto) (0-3) /hpf Ur Squamous Epith Cells (0-5) /hpf Ur Random Creatinine mg/dL Ur Random Sodium mmol/L Ur Random Phosphorus mg/dL Ur Random Uric Acid mg/dL Ur Random Glucose mg/dL Ur Random Calcium mg/dL Urine Opiates Screen (NEGATIVE) Urine Methadone Screen (NEGATIVE) Ur Barbiturates Screen (NEGATIVE) Ur Phencyclidine Scrn (NEGATIVE) Ur Amphetamines Screen (NEGATIVE) U Benzodiazepines Scrn (NEGATIVE) U Oth Cocaine Metabols (NEGATIVE) U Cannabinoids Screen (NEGATIVE) 12/29/17 Range/Units 16:23 WBC (4.8-10.8) K/uL RBC (4.40-5.90) Mil/uL Hgb (12.0-18.0) g/dL Hct (35.0-51.0) % MCV (80.0-94.0) fL MCH (27.0-31.0) pg MCHC (33.0-37.0) g/dL RDW (11.5-14.5) % Plt Count (130-400) K/uL MPV (7.2-11.7) fL Neut % (Auto) (50.0-75.0) % Lymph % (Auto) (20.0-40.0) % Stark % (Auto) (0.0-10.0) % Eos % (Auto) (0.0-4.0) % Baso % (Auto) (0.0-2.0) % Neut # (Auto) (1.8-7.0) K/uL Lymph # (Auto) (1.0-4.3) K/uL Stark # (Auto) (0.0-0.8) K/uL Eos # (Auto) (0.0-0.7) K/uL Baso # (Auto) (0.0-0.2) K/uL Neutrophils % (Manual) (50-75) % Band Neutrophils % (0-2) % Lymphocytes % (Manual) (20-40) % Monocytes % (Manual) (0-10) % Eosinophils % (Manual) (0-4) % Platelet Estimate (NORMAL) RBC Morphology PT (9.7-12.2) SECONDS INR APTT (21-34) SECONDS Puncture Site Lba pCO2 40 (35-45) mm/Hg pO2 72 L (80-100) mm/Hg HCO3 31.2 H (21-28) mmol/L ABG pH 7.51 H (7.35-7.45) ABG Total CO2 33.1 H (22-28) mmol/L ABG O2 Saturation 97.4 (95-98) % ABG Base Excess 8.2 H (-2.0-3.0) mmol/L ABG Hemoglobin 13.5 (11.7-17.4) g/dL ABG Carboxyhemoglobin 2.8 H (0.5-1.5) % POC ABG HHb (Measured) 2.5 (0.0-5.0) % ABG Methemoglobin 1.2 (0.0-3.0) % Ruddy Test Pos Hgb O2 Saturation 93.5 L (95.0-98.0) % Liter Flow 4.0 Sodium (132-148) mmol/L Potassium (3.6-5.2) mmol/L Chloride (98-107) mmol/L Carbon Dioxide (22-30) mmol/L Anion Gap (10-20) BUN (9-20) mg/dL Creatinine (0.8-1.5) mg/dL Est GFR ( Amer) Est GFR (Non-Af Amer) Random Glucose (75-110) mg/dL Lactic Acid (0.7-2.1) mmol/L Calcium (8.6-10.4) mg/dl Phosphorus (2.5-4.5) mg/dL Magnesium (1.6-2.3) mg/dL Total Bilirubin (0.2-1.3) mg/dL AST (17-59) U/L ALT (21-72) U/L Alkaline Phosphatase (38-126) U/L Total Creatine Kinase (55-170) U/L CK-MB (Mass) (0.0-3.38) ng/mL Troponin I (0.00-0.120) ng/mL NT-Pro-B Natriuret Pep (0-900) pg/mL Total Protein (6.3-8.3) g/dL Albumin (3.5-5.0) g/dL Globulin (2.2-3.9) gm/dL Albumin/Globulin Ratio (1.0-2.1) Urine Color (YELLOW) Urine Clarity (Clear) Urine pH (5.0-8.0) Ur Specific [place] (1.003-1.030) Urine Protein (NEGATIVE) mg/dL Urine Glucose (UA) (Normal) mg/dL Urine Ketones (NEGATIVE) mg/dL Urine Blood (NEGATIVE) Urine Nitrate (NEGATIVE) Urine Bilirubin (NEGATIVE) Urine Urobilinogen (0.2-1.0) mg/dL Ur Leukocyte Esterase (Negative) Teresa/uL Urine WBC (Auto) (0-5) /hpf Urine RBC (Auto) (0-3) /hpf Ur Squamous Epith Cells (0-5) /hpf Ur Random Creatinine mg/dL Ur Random Sodium mmol/L Ur Random Phosphorus mg/dL Ur Random Uric Acid mg/dL Ur Random Glucose mg/dL Ur Random Calcium mg/dL Urine Opiates Screen (NEGATIVE) Urine Methadone Screen (NEGATIVE) Ur Barbiturates Screen (NEGATIVE) Ur Phencyclidine Scrn (NEGATIVE) Ur Amphetamines Screen (NEGATIVE) U Benzodiazepines Scrn (NEGATIVE) U Oth Cocaine Metabols (NEGATIVE) U Cannabinoids Screen (NEGATIVE) Laboratory Results - last 24 hr 12/29/17 12/29/17 12/29/17 16:23 17:07 17:07 WBC 11.0 H RBC 4.40 Hgb 14.1 Hct 40.4 MCV 91.7 MCH 32.0 H MCHC 34.9 RDW 13.5 Plt Count 259 MPV 7.8 Neut % (Auto) 82.3 H Lymph % (Auto) 5.1 L Stark % (Auto) 11.4 H Eos % (Auto) 0.9 Baso % (Auto) 0.3 Neut # (Auto) 9.0 H Lymph # (Auto) 0.6 L Stark # (Auto) 1.2 H Eos # (Auto) 0.1 Baso # (Auto) 0.0 Neutrophils % (Manual) 91 H Band Neutrophils % 1 Lymphocytes % (Manual) 4 L Monocytes % (Manual) 4 Eosinophils % (Manual) Platelet Estimate Normal RBC Morphology Normal PT INR APTT Puncture Site Lba pCO2 40 pO2 72 L HCO3 31.2 H ABG pH 7.51 H ABG Total CO2 33.1 H ABG O2 Saturation 97.4 ABG Base Excess 8.2 H ABG Hemoglobin 13.5 ABG Carboxyhemoglobin 2.8 H POC ABG HHb (Measured) 2.5 ABG Methemoglobin 1.2 Ruddy Test Pos Hgb O2 Saturation 93.5 L Liter Flow 4.0 Sodium 139 Potassium 3.5 L Chloride 101 Carbon Dioxide 30 Anion Gap 11 BUN 37 H Creatinine 1.6 H Est GFR ( Amer) 55 Est GFR (Non-Af Amer) 46 Random Glucose 116 H Lactic Acid Calcium 8.1 L Phosphorus 2.7 Magnesium 2.4 H Total Bilirubin 2.0 H AST 24 ALT 46 Alkaline Phosphatase 56 Total Creatine Kinase CK-MB (Mass) Troponin I 0.1500 H* NT-Pro-B Natriuret Pep Total Protein 5.8 L Albumin 3.1 L Globulin 2.7 Albumin/Globulin Ratio 1.2 Urine Color Urine Clarity Urine pH Ur Specific [place] Urine Protein Urine Glucose (UA) Urine Ketones Urine Blood Urine Nitrate Urine Bilirubin Urine Urobilinogen Ur Leukocyte Esterase Urine WBC (Auto) Urine RBC (Auto) Ur Squamous Epith Cells Ur Random Creatinine Ur Random Sodium Ur Random Phosphorus Ur Random Uric Acid Ur Random Glucose Ur Random Calcium Urine Opiates Screen Urine Methadone Screen Ur Barbiturates Screen Ur Phencyclidine Scrn Ur Amphetamines Screen U Benzodiazepines Scrn U Oth Cocaine Metabols U Cannabinoids Screen 12/29/17 12/29/17 12/29/17 17:07 19:43 20:05 WBC RBC Hgb Hct MCV MCH MCHC RDW Plt Count MPV Neut % (Auto) Lymph % (Auto) Stark % (Auto) Eos % (Auto) Baso % (Auto) Neut # (Auto) Lymph # (Auto) Stark # (Auto) Eos # (Auto) Baso # (Auto) Neutrophils % (Manual) Band Neutrophils % Lymphocytes % (Manual) Monocytes % (Manual) Eosinophils % (Manual) Platelet Estimate RBC Morphology PT INR APTT Puncture Site pCO2 pO2 HCO3 ABG pH ABG Total CO2 ABG O2 Saturation ABG Base Excess ABG Hemoglobin ABG Carboxyhemoglobin POC ABG HHb (Measured) ABG Methemoglobin Ruddy Test Hgb O2 Saturation Liter Flow Sodium Potassium Chloride Carbon Dioxide Anion Gap BUN Creatinine Est GFR ( Amer) Est GFR (Non-Af Amer) Random Glucose Lactic Acid 1.3 Calcium Phosphorus Magnesium Total Bilirubin AST ALT Alkaline Phosphatase Total Creatine Kinase CK-MB (Mass) Troponin I NT-Pro-B Natriuret Pep 67.0 Total Protein Albumin Globulin Albumin/Globulin Ratio Urine Color Yellow Urine Clarity Clear Urine pH 5.0 Ur Specific [place] 1.021 Urine Protein Negative Urine Glucose (UA) Normal Urine Ketones Negative Urine Blood Negative Urine Nitrate Negative Urine Bilirubin Negative Urine Urobilinogen Normal Ur Leukocyte Esterase Neg Urine WBC (Auto) 4 Urine RBC (Auto) < 1 Ur Squamous Epith Cells < 1 Ur Random Creatinine Ur Random Sodium Ur Random Phosphorus Ur Random Uric Acid Ur Random Glucose Ur Random Calcium Urine Opiates Screen Urine Methadone Screen Ur Barbiturates Screen Ur Phencyclidine Scrn Ur Amphetamines Screen U Benzodiazepines Scrn U Oth Cocaine Metabols U Cannabinoids Screen 12/29/17 12/29/17 12/30/17 20:05 20:05 03:38 WBC RBC Hgb Hct MCV MCH MCHC RDW Plt Count MPV Neut % (Auto) Lymph % (Auto) Stark % (Auto) Eos % (Auto) Baso % (Auto) Neut # (Auto) Lymph # (Auto) Stark # (Auto) Eos # (Auto) Baso # (Auto) Neutrophils % (Manual) Band Neutrophils % Lymphocytes % (Manual) Monocytes % (Manual) Eosinophils % (Manual) Platelet Estimate RBC Morphology PT INR APTT Puncture Site pCO2 pO2 HCO3 ABG pH ABG Total CO2 ABG O2 Saturation ABG Base Excess ABG Hemoglobin ABG Carboxyhemoglobin POC ABG HHb (Measured) ABG Methemoglobin Ruddy Test Hgb O2 Saturation Liter Flow Sodium Potassium Chloride Carbon Dioxide Anion Gap BUN Creatinine Est GFR ( Amer) Est GFR (Non-Af Amer) Random Glucose Lactic Acid Calcium Phosphorus Magnesium Total Bilirubin AST ALT Alkaline Phosphatase Total Creatine Kinase 166 CK-MB (Mass) 1.02 Troponin I 0.1420 H* NT-Pro-B Natriuret Pep Total Protein Albumin Globulin Albumin/Globulin Ratio Urine Color Urine Clarity Urine pH Ur Specific [place] Urine Protein Urine Glucose (UA) Urine Ketones Urine Blood Urine Nitrate Urine Bilirubin Urine Urobilinogen Ur Leukocyte Esterase Urine WBC (Auto) Urine RBC (Auto) Ur Squamous Epith Cells Ur Random Creatinine 210.9 Ur Random Sodium 39 Ur Random Phosphorus 108.3 Ur Random Uric Acid 98.3 Ur Random Glucose < 20 Ur Random Calcium < 1.0 Urine Opiates Screen Positive H Urine Methadone Screen Negative Ur Barbiturates Screen Negative Ur Phencyclidine Scrn Negative Ur Amphetamines Screen Negative U Benzodiazepines Scrn Negative U Oth Cocaine Metabols Negative U Cannabinoids Screen Negative 12/30/17 12/30/17 12/30/17 03:38 03:38 03:38 WBC 9.9 RBC 3.81 L Hgb 12.0 D Hct 35.2 MCV 92.4 MCH 31.4 H MCHC 34.0 RDW 13.6 Plt Count 226 MPV 8.3 Neut % (Auto) 80.1 H Lymph % (Auto) 7.5 L Stark % (Auto) 10.5 H Eos % (Auto) 1.6 Baso % (Auto) 0.3 Neut # (Auto) 7.9 H Lymph # (Auto) 0.7 L Stark # (Auto) 1.0 H Eos # (Auto) 0.2 Baso # (Auto) 0.0 Neutrophils % (Manual) 80 H Band Neutrophils % Lymphocytes % (Manual) 7 L Monocytes % (Manual) 12 H Eosinophils % (Manual) 1 Platelet Estimate Normal RBC Morphology Normal PT 16.1 H INR 1.5 APTT 196 H* D Puncture Site pCO2 pO2 HCO3 ABG pH ABG Total CO2 ABG O2 Saturation ABG Base Excess ABG Hemoglobin ABG Carboxyhemoglobin POC ABG HHb (Measured) ABG Methemoglobin Ruddy Test Hgb O2 Saturation Liter Flow Sodium 142 Potassium 3.3 L Chloride 102 Carbon Dioxide 30 Anion Gap 13 BUN 31 H Creatinine 1.3 Est GFR ( Amer) > 60 Est GFR (Non-Af Amer) 58 Random Glucose 103 Lactic Acid Calcium 8.3 L Phosphorus 2.6 Magnesium 2.6 H Total Bilirubin 1.7 H AST 22 ALT 41 Alkaline Phosphatase 47 Total Creatine Kinase CK-MB (Mass) Troponin I NT-Pro-B Natriuret Pep Total Protein 5.7 L Albumin 3.2 L Globulin 2.5 Albumin/Globulin Ratio 1.3 Urine Color Urine Clarity Urine pH Ur Specific [place] Urine Protein Urine Glucose (UA) Urine Ketones Urine Blood Urine Nitrate Urine Bilirubin Urine Urobilinogen Ur Leukocyte Esterase Urine WBC (Auto) Urine RBC (Auto) Ur Squamous Epith Cells Ur Random Creatinine Ur Random Sodium Ur Random Phosphorus Ur Random Uric Acid Ur Random Glucose Ur Random Calcium Urine Opiates Screen Urine Methadone Screen Ur Barbiturates Screen Ur Phencyclidine Scrn Ur Amphetamines Screen U Benzodiazepines Scrn U Oth Cocaine Metabols U Cannabinoids Screen 12/30/17 03:38 WBC RBC Hgb Hct MCV MCH MCHC RDW Plt Count MPV Neut % (Auto) Lymph % (Auto) Stark % (Auto) Eos % (Auto) Baso % (Auto) Neut # (Auto) Lymph # (Auto) Stark # (Auto) Eos # (Auto) Baso # (Auto) Neutrophils % (Manual) Band Neutrophils % Lymphocytes % (Manual) Monocytes % (Manual) Eosinophils % (Manual) Platelet Estimate RBC Morphology PT INR APTT Puncture Site pCO2 pO2 HCO3 ABG pH ABG Total CO2 ABG O2 Saturation ABG Base Excess ABG Hemoglobin ABG Carboxyhemoglobin POC ABG HHb (Measured) ABG Methemoglobin Ruddy Test Hgb O2 Saturation Liter Flow Sodium Potassium Chloride Carbon Dioxide Anion Gap BUN Creatinine Est GFR ( Amer) Est GFR (Non-Af Amer) Random Glucose Lactic Acid 0.8 Calcium Phosphorus Magnesium Total Bilirubin AST ALT Alkaline Phosphatase Total Creatine Kinase CK-MB (Mass) Troponin I NT-Pro-B Natriuret Pep Total Protein Albumin Globulin Albumin/Globulin Ratio Urine Color Urine Clarity Urine pH Ur Specific [place] Urine Protein Urine Glucose (UA) Urine Ketones Urine Blood Urine Nitrate Urine Bilirubin Urine Urobilinogen Ur Leukocyte Esterase Urine WBC (Auto) Urine RBC (Auto) Ur Squamous Epith Cells Ur Random Creatinine Ur Random Sodium Ur Random Phosphorus Ur Random Uric Acid Ur Random Glucose Ur Random Calcium Urine Opiates Screen Urine Methadone Screen Ur Barbiturates Screen Ur Phencyclidine Scrn Ur Amphetamines Screen U Benzodiazepines Scrn U Oth Cocaine Metabols U Cannabinoids Screen EKG/Cardiology Studies: Cardiology / EKG Studies 12/29/17 15:57 EKG [ELECTROCARDIOGRAM] Stat Comment: Mode Of Transportation: Reason For Exam: tachy 12/29/17 17:09 ELECTROCARDIOGRAM Stat Comment: Mode Of Transportation: Reason For Exam: hypotension 12/30/17 00:00 ELECTROCARDIOGRAM Routine Comment: Mode Of Transportation: Reason For Exam: ekg changes 12/30/17 06:00 EKG [ELECTROCARDIOGRAM] Routine Comment: Mode Of Transportation: Reason For Exam: elevated troponins Review of Systems - Constitutional Constitutional: absent: Chills - EENT Nose/Mouth/Throat: UNREMARKABLE - Cardiovascular Cardiovascular: absent: Chest Pain, Diaphoresis, Dyspnea, Edema - Respiratory Respiratory: absent: Cough, Dyspnea, Pain on Inspiration - Gastrointestinal Gastrointestinal: Abdominal Pain (incision site). absent: Diarrhea, Nausea Critical Care Progress Note - Prophylaxis GI Prophylaxis GI: PPI - Prophylaxis DVT Prophylaxis DVT: Heparin SQ - Nutrition Nutrition: Nutrition Category Date Time Status Liquid Diet [DIET] Diets 12/30/17 Breakfast Active Assessment/Plan - Assessment and Plan (Free Text) Assessment: 52 yo M s/p reduction of incarcerated hernia and small bowel resection POD 2, presenting with PE. 1. PE -heparin started [id number] IV -monitor PTT, 196 today, titrate accordingly -IVC placed this morning -f/u arterial duplex LE 2. s/p hernia reduction and SB resection -Zosyn 3.375g -liquid diet, adv as tolerated CAD -f/u echo Ppx -protonix 40mg -SCD Case discussed with Dr. Cameron
[2017-12-30] MEDS ORDERED: Potassium Chloride 20 mEq/15 ml LIQ UD PO ONE (13:57)
--- NOTE | 2017-12-30 15:11 | VASCLAB ---
PROCEDURE: Lower Extremity Venous Duplex Exam. HISTORY: PE PRIORS: None. TECHNIQUE: Bilateral common femoral, femoral, popliteal and posterior tibial, peroneal and great saphenous veins were evaluated. Flow was assessed with color Doppler, compressibility, assessment of phasic flow and augmentation response. Report prepared by Pietro Manley, JOE, RVT FINDINGS: RIGHT: 1. Common Femoral Vein: 1.1. Compressibility - Fully compressible: Thrombus - None : Flow - Phasic: Augmentation -Normal: Reflux - None. 2. Femoral Vein: 2.1. Compressibility - Fully compressible: Thrombus - None : Flow - Phasic: Augmentation -Normal: Reflux - None. 3. Popliteal Vein: 3.1. Compressibility - Fully compressible: Thrombus - None : Flow - Phasic: Augmentation -Normal: Reflux - None. 4. Posterior Tibial Vein: 4.1. Compressibility - Fully compressible: Thrombus - None: Flow - Phasic: Augmentation -Normal: Reflux - None. 5. Peroneal Vein: 5.1. Compressibility - Fully compressible: Thrombus - None: Flow - Phasic: Augmentation -Normal: Reflux - None. 6. Great Saphenous Vein: 6.1. Compressibility - Fully compressible: Thrombus - None: Flow - Phasic: Augmentation - Normal: Reflux - None. LEFT: 1. Common Femoral Vein: 1.1. Compressibility - Fully compressible: Thrombus - None: Flow - Phasic: Augmentation -Normal: Reflux - None. 2. Femoral Vein: 2.1. Compressibility - Fully compressible: Thrombus - None: Flow - Phasic: Augmentation -Normal: Reflux - None. 3. Popliteal Vein: 3.1. Compressibility - Fully compressible: Thrombus - None : Flow - Phasic: Augmentation -Normal: Reflux - None. 4. Posterior Tibial Vein: 4.1. Compressibility - Fully compressible: Thrombus - None: Flow - Phasic: Augmentation -Normal: Reflux - None. 5. Peroneal Vein: 5.1. Compressibility - Fully compressible: Thrombus - None: Flow - Phasic: Augmentation -Normal: Reflux - None. 6. Great Saphenous Vein: 6.1. Compressibility - Fully compressible: Thrombus - None: Flow - Phasic: Augmentation - Normal: Reflux - None. OTHER FINDINGS: Right: None significant. Left: None significant. IMPRESSION: Right: No evidence of deep or superficial vein thrombosis of the right lower extremity. Normal valve function noted of the right side. Left: No evidence of deep or superficial vein thrombosis of the left lower extremity. Normal valve function noted of the left side.
--- NOTE | 2017-12-30 15:20 | CP.PCM.PN ---
<Gabriela Lopez - Last Filed: 12/30/17 16:11> Subjective - Date & Time of Evaluation Date of Evaluation: 12/30/17 Time of Evaluation: 13:00 - Subjective Subjective: PGY2- Progress note for Dr. Rose Patient seen and examined at bedside after IVC filter placement and in no acute distress. Patient says he feels fine. Patient admits to some abdominal pain if he moves around. Patient has not had a bowel movement yet, but is passing a lot of gas. Patient denies any chest pain, palpitations, shortness of breath, nausea , or vomiting. Objective - Vital Signs/Intake and Output Vital Signs (last 24 hours): Temp Pulse Resp BP Pulse Ox 99.4 F 100 H 17 81/50 L 93 L 12/30/17 06:30 12/30/17 14:00 12/30/17 14:00 12/30/17 13:56 12/30/17 14:00 Intake and Output: 12/30/17 12/30/17 06:59 18:59 Intake Total 1904.9 877.8 Output Total 350 500 Balance 1554.9 377.8 - Medications Medications: Current Medications Hydromorphone HCl (Dilaudid) 0.5 mg IVP Q3H PRN PRN Reason: Pain, moderate (4-7) Last Admin: 12/30/17 03:45 Dose: 0.5 mg Piperacillin Sod/Tazobactam Sod (Zosyn 3.375 Gm Iv Premix) 3.375 gm in 50 mls @ 100 mls/hr IVPB Q8H [facility] PRN Reason: Protocol Last Admin: 12/30/17 12:45 Dose: 100 mls/hr Heparin Sodium/Sodium Chloride (Heparin 17810 Units/250ml 1/2 Normal Saline) 25 ,000 units in 250 mls @ 25.702 mls/hr IV .Q9H44M PRN; Protocol; 18 UNITS/KG/HR PRN Reason: ADJUST RATE PER PROTOCOL Last Admin: 12/30/17 12:03 Dose: 15 units/kg/hr, 21.419 mls/hr Sodium Chloride (Sodium Chloride 0.9%) 1,000 mls @ 150 mls/hr IV .Q6H40M [facility] Last Admin: 12/30/17 06:15 Dose: 150 mls/hr Pantoprazole Sodium (Protonix Inj) 40 mg IVP DAILY [facility] Last Admin: 12/29/17 09:13 Dose: 40 mg Tamsulosin HCl (Flomax) 0.4 mg PO DAILY [facility] Last Admin: 12/29/17 14:41 Dose: Not Given - Labs Labs: 12/30/17 03:38 12/30/17 03:38 PT 16.1 SECONDS (9.7-12.2) H 12/30/17 03:38 INR 1.5 12/30/17 03:38 APTT 90 SECONDS (21-34) H D 12/30/17 13:38 - Constitutional Appears: Non-toxic, No Acute Distress - Head Exam Head Exam: ATRAUMATIC, NORMAL INSPECTION, NORMOCEPHALIC - Eye Exam Eye Exam: EOMI, Normal appearance - Respiratory Exam Respiratory Exam: Clear to Ausculation Bilateral, NORMAL BREATHING PATTERN. absent: Rales, Rhonchi, Wheezes, Stridor - Cardiovascular Exam Cardiovascular Exam: REGULAR RHYTHM, RRR, +S1, +S2 - GI/Abdominal Exam GI & Abdominal Exam: Soft, Tenderness, Normal Bowel Sounds Additional comments: c/d/i dressing - Extremities Exam Extremities Exam: Normal Inspection. absent: Pedal Edema, Tenderness - Neurological Exam Neurological Exam: Alert, Awake, Oriented x3 - Psychiatric Exam Psychiatric exam: Normal Affect, Normal Mood - Skin Skin Exam: Intact, Normal Color, Warm Assessment and Plan - Assessment and Plan (Free Text) Assessment: Pulmonary Embolisms CTA: multiple extensive bilateral pulmonary emboli are identified including a saddle pulmonary embolism Venous duplex LE: no evidence of DVT, normal valve function Heparin Drip IVC filter placed by Dr. Dumont on 12/30/17 Elevated Troponins .15--> .142 2/2 extensive PEs monitor for chest pain Incarcerated hernia s/p primary repair with small bowel resection Zosyn liquid diet pain management with Dilaudid <Bharath Rose - Last Filed: 12/30/17 23:11> Objective - Vital Signs/Intake and Output Vital Signs (last 24 hours): Temp Pulse Resp BP Pulse Ox 99.4 F 109 H 42 H 115/73 95 12/30/17 06:30 12/30/17 19:15 12/30/17 19:15 12/30/17 19:15 12/30/17 19:15 Intake and Output: 12/30/17 12/31/17 18:59 06:59 Intake Total 2283.4 950 Output Total 2100 250 Balance 183.4 700 - Medications Medications: Current Medications Apixaban (Eliquis) 10 mg PO BID [facility] Stop: 01/06/18 10:01 Last Admin: 12/30/17 22:23 Dose: 10 mg Hydromorphone HCl (Dilaudid) 0.5 mg IVP Q3H PRN PRN Reason: Pain, moderate (4-7) Last Admin: 12/30/17 03:45 Dose: 0.5 mg Piperacillin Sod/Tazobactam Sod (Zosyn 3.375 Gm Iv Premix) 3.375 gm in 50 mls @ 100 mls/hr IVPB Q8H [facility] PRN Reason: Protocol Last Admin: 12/30/17 22:00 Dose: 100 mls/hr Sodium Chloride (Sodium Chloride 0.9%) 1,000 mls @ 150 mls/hr IV .Q6H40M [facility] Last Admin: 12/30/17 20:05 Dose: 150 mls/hr Pantoprazole Sodium (Protonix Ec Tab) 40 mg PO BID [facility] Last Admin: 12/30/17 18:30 Dose: Not Given Tamsulosin HCl (Flomax) 0.4 mg PO DAILY [facility] Last Admin: 12/30/17 10:00 Dose: Not Given - Labs Labs: 12/30/17 03:38 12/30/17 03:38 PT 16.1 SECONDS (9.7-12.2) H 12/30/17 03:38 INR 1.5 12/30/17 03:38 APTT 90 SECONDS (21-34) H D 12/30/17 13:38 Assessment and Plan - Assessment and Plan (Free Text) Assessment: Patient seen and evaluated personally by ct Plan of care d/w the Resident and as documented
[2017-12-30] MEDS: Pantoprazole 40 mg EC Tab PO SCH (18:30)
--- NOTE | 2017-12-30 22:14 | CARD ---
APPROVED REPORT EKG Measurement Heart [id number] <Conclusion> Normal sinus rhythm Inferior infarct, age undetermined Anterolateral infarct, age undetermined Abnormal ECG
[2017-12-31] MEDS: Sodium Chloride 0.9% 1,000 ML IV SCH ×4 (02:51→22:45)
[2017-12-31] MEDS: Piperacill/Tazo 3.375gm in Dex 3.375 GM/50 ML BAG IVPB SCH ×3 (04:33→20:32)
[2017-12-31 06:40] LABS: BASO % 0.3 % (0.0-2.0); EOS # 0.3 K/uL (0.0-0.7); EOS % 3.5 % (0.0-4.0); HEMOGLOBIN 12.1 g/dL (12.0-18.0); LYMPH # 0.7 K/uL (1.0-4.3); LYMPH % 7.3 % (20.0-40.0); MEAN CELL VOLUME 92.2 fL (80.0-94.0); MEAN CORPUSCULAR HEMOGLOBIN 31.9 pg (27.0-31.0); MEAN CORPUSCULAR HGB CONC 34.6 g/dL (33.0-37.0); MEAN PLATELET VOLUME 8.1 fL (7.2-11.7); MONO # 0.8 K/uL (0.0-0.8); MONO % 8.6 % (0.0-10.0); NEUT # 7.7 K/uL (1.8-7.0); NEUT % 80.3 % (50.0-75.0); PLATELET COUNT 221 K/uL (130-400); RED CELL DISTRIBUTION WIDTH 13.4 % (11.5-14.5); WHITE BLOOD COUNT 9.7 K/uL (4.8-10.8)
[2017-12-31 06:55] LABS: ALB/GLOB RATIO 1.1 (1.0-2.1); ALT/SGPT 40 U/L (21-72); AST/SGOT 35 U/L (17-59); BLOOD UREA NITROGEN 17 mg/dL (9-20); CALCIUM 8.2 mg/dl (8.6-10.4); GFR AFRICAN-AMERICAN > 60; GFR NON-AFRICAN AMERICAN > 60
[2017-12-31] MEDS: Potassium Chloride 20 mEq/15 ml LIQ UD PO SCH ×2 (07:58→13:45)
--- NOTE | 2017-12-31 08:13 | CP.PCM.PN ---
Subjective - Date & Time of Evaluation Date of Evaluation: 12/31/17 Time of Evaluation: 08:30 - Subjective Subjective: chart reviewed positive PE IVC filter placed yesterday patient started on oral anticoagulation vitals stable Hypokalemia being replenished blood cultures negative troponin elevation cardio on case patient seen, no complaints no BM but with gas passage started fluids discussion pf condition and plan no bleeding with Eliquis no SOB other tests unremarkable Objective - Vital Signs/Intake and Output Vital Signs (last 24 hours): Temp Pulse Resp BP Pulse Ox 99 F 83 21 123/75 98 12/31/17 04:00 12/31/17 06:00 12/31/17 06:00 12/31/17 06:09 12/31/17 06:00 Intake and Output: 12/31/17 12/31/17 06:59 18:59 Intake Total 2000 Output Total 720 Balance 1280 - Medications Medications: Current Medications Apixaban (Eliquis) 10 mg PO BID [facility] Stop: 01/06/18 10:01 Last Admin: 12/30/17 22:23 Dose: 10 mg Piperacillin Sod/Tazobactam Sod (Zosyn 3.375 Gm Iv Premix) 3.375 gm in 50 mls @ 100 mls/hr IVPB Q8H [facility] PRN Reason: Protocol Last Admin: 12/31/17 04:33 Dose: 100 mls/hr Sodium Chloride (Sodium Chloride 0.9%) 1,000 mls @ 150 mls/hr IV .Q6H40M [facility] Last Admin: 12/31/17 02:51 Dose: 150 mls/hr Potassium Chloride (Potassium Chloride 10 Meq/100 Ml) 10 meq in 100 mls @ 100 mls/hr IVPB Q1H [facility] Stop: 12/31/17 10:29 Last Admin: 12/31/17 07:58 Dose: 100 mls/hr Pantoprazole Sodium (Protonix Ec Tab) 40 mg PO BID [facility] Last Admin: 12/30/17 18:30 Dose: Not Given Potassium Chloride (Potassium Chloride Oral Soln) 40 meq PO Q6H [facility] Stop: 12/31/17 13:31 Last Admin: 12/31/17 07:58 Dose: 40 meq Tamsulosin HCl (Flomax) 0.4 mg PO DAILY [facility] Last Admin: 12/30/17 10:00 Dose: Not Given - Labs Labs: 12/31/17 06:31 12/31/17 06:31 PT 16.1 SECONDS (9.7-12.2) H 12/30/17 03:38 INR 1.5 12/30/17 03:38 APTT 90 SECONDS (21-34) H D 12/30/17 13:38 - Constitutional Appears: Non-toxic, No Acute Distress - Head Exam Head Exam: ATRAUMATIC, NORMOCEPHALIC - Eye Exam Eye Exam: Normal appearance. absent: Nystagmus - ENT Exam ENT Exam: Mucous Membranes Moist - Respiratory Exam Respiratory Exam: Clear to Ausculation Bilateral, NORMAL BREATHING PATTERN - Cardiovascular Exam Cardiovascular Exam: REGULAR RHYTHM - GI/Abdominal Exam GI & Abdominal Exam: Soft, Normal Bowel Sounds. absent: Tenderness (other than deep palpation ) - Extremities Exam Extremities Exam: Full ROM, Normal Inspection. absent: Pedal Edema - Neurological Exam Neurological Exam: Alert, Awake, Normal Gait (but stays in ICU bed ), Oriented x3 - Psychiatric Exam Psychiatric exam: Normal Affect, Normal Mood - Skin Skin Exam: Intact, Normal Color Assessment and Plan - Assessment and Plan (Free Text) Assessment: patient with multiple acute medical problems GI loss Vomiting dehydration Acute renal Failure hypotension -post IVF -resolved Incarcerated ventral hernia -post surgery- improving - with gas passage- introducing diets Pulmonary embolism- post heparin drip- now on PO Eliquis- further observation no bleeding Hypokalemia- persisted- from GI loss- on supplemenatation Elevated Troponins- evaluated by cardio Diet to advance as tolerated evaluation for PT as needed history of Hypertension- off meds due to above hypotension- further monitoring stable
--- NOTE | 2017-12-31 08:30 | CP.PCM.PN ---
Subjective - Date & Time of Evaluation Date of Evaluation: 12/31/17 Time of Evaluation: 07:05 - Subjective Subjective: General Surgery Progress Note for Dr. Dumont 52M seen and evaluated this AM. Patient resting comfortably in bed. OOB to chair and walking yesterday. Has not had a BM but is passing flatus. Some adominal pain with movement. Denies n/v/d, CP, SOB, f/c, or urinary symptoms. Objective - Vital Signs/Intake and Output Vital Signs (last 24 hours): Temp Pulse Resp BP Pulse Ox 99 F 83 21 123/75 98 12/31/17 04:00 12/31/17 06:00 12/31/17 06:00 12/31/17 06:09 12/31/17 06:00 Intake and Output: 12/31/17 12/31/17 06:59 18:59 Intake Total 2000 Output Total 720 Balance 1280 - Medications Medications: Current Medications Apixaban (Eliquis) 10 mg PO BID [facility] Stop: 01/06/18 10:01 Last Admin: 12/30/17 22:23 Dose: 10 mg Piperacillin Sod/Tazobactam Sod (Zosyn 3.375 Gm Iv Premix) 3.375 gm in 50 mls @ 100 mls/hr IVPB Q8H [facility] PRN Reason: Protocol Last Admin: 12/31/17 04:33 Dose: 100 mls/hr Sodium Chloride (Sodium Chloride 0.9%) 1,000 mls @ 150 mls/hr IV .Q6H40M [facility] Last Admin: 12/31/17 02:51 Dose: 150 mls/hr Potassium Chloride (Potassium Chloride 10 Meq/100 Ml) 10 meq in 100 mls @ 100 mls/hr IVPB Q1H [facility] Stop: 12/31/17 10:29 Last Admin: 12/31/17 07:58 Dose: 100 mls/hr Pantoprazole Sodium (Protonix Ec Tab) 40 mg PO BID [facility] Last Admin: 12/30/17 18:30 Dose: Not Given Potassium Chloride (Potassium Chloride Oral Soln) 40 meq PO Q6H [facility] Stop: 12/31/17 13:31 Last Admin: 12/31/17 07:58 Dose: 40 meq Tamsulosin HCl (Flomax) 0.4 mg PO DAILY [facility] Last Admin: 12/30/17 10:00 Dose: Not Given - Labs Labs: 12/31/17 06:31 12/31/17 06:31 PT 16.1 SECONDS (9.7-12.2) H 12/30/17 03:38 INR 1.5 12/30/17 03:38 APTT 90 SECONDS (21-34) H D 12/30/17 13:38 - Constitutional Appears: Well, Non-toxic, No Acute Distress - Head Exam Head Exam: ATRAUMATIC, NORMAL INSPECTION, NORMOCEPHALIC - Eye Exam Eye Exam: EOMI, Normal appearance - ENT Exam ENT Exam: Mucous Membranes Moist, Normal External Ear Exam - Respiratory Exam Respiratory Exam: Clear to Ausculation Bilateral, NORMAL BREATHING PATTERN - Cardiovascular Exam Cardiovascular Exam: REGULAR RHYTHM, +S1, +S2. absent: Murmur - GI/Abdominal Exam GI & Abdominal Exam: Soft, Normal Bowel Sounds. absent: Distended, Firm, Guarding, Tenderness, Rebound - Neurological Exam Neurological Exam: Alert, Awake, Oriented x3 - Skin Skin Exam: Dry, Intact, Normal Color, Warm Additional comments: midline abdominal surgical site dressing c/d/i Assessment and Plan - Assessment and Plan (Free Text) Assessment: 52M s/p incarcerated ventral hernia POD3 complicated by B/L PE with subsequent IVC filter placement POD1 Plan: started on anticoaglulation awaiting bowel function - started on regular diet encouraged ambulation and use of IS c/w pain control further recs per Dr. Tim James PGY1
[2017-12-31] MEDS: Pantoprazole 40 mg EC Tab PO SCH ×2 (10:00→17:43)
--- NOTE | 2017-12-31 10:08 | CP.PCM.PN ---
Subjective - Date & Time of Evaluation Date of Evaluation: 12/31/17 Time of Evaluation: 10:03 - Subjective Subjective: PAtient s/p hernia repair with primary end to end small bowel anastomosis. Patient tolerating oral diet., (+)flatus Objective - Vital Signs/Intake and Output Vital Signs (last 24 hours): Temp Pulse Resp BP Pulse Ox 99.0 F 74 18 127/79 98 12/31/17 08:00 12/31/17 09:09 12/31/17 09:09 12/31/17 09:00 12/31/17 09:00 Intake and Output: 12/31/17 12/31/17 06:59 18:59 Intake Total 2120 790 Output Total 600 200 Balance 1520 590 - Medications Medications: Current Medications Apixaban (Eliquis) 10 mg PO BID [facility] Stop: 01/06/18 10:01 Last Admin: 12/31/17 09:58 Dose: 10 mg Bisacodyl (Dulcolax) 10 mg MS ONCE ONE Stop: 12/31/17 10:02 Piperacillin Sod/Tazobactam Sod (Zosyn 3.375 Gm Iv Premix) 3.375 gm in 50 mls @ 100 mls/hr IVPB Q8H [facility] PRN Reason: Protocol Last Admin: 12/31/17 04:33 Dose: 100 mls/hr Sodium Chloride (Sodium Chloride 0.9%) 1,000 mls @ 150 mls/hr IV .Q6H40M [facility] Last Admin: 12/31/17 02:51 Dose: 150 mls/hr Potassium Chloride (Potassium Chloride 10 Meq/100 Ml) 10 meq in 100 mls @ 100 mls/hr IVPB Q1H [facility] Stop: 12/31/17 10:29 Last Admin: 12/31/17 09:54 Dose: 100 mls/hr Potassium Phosphate 15 mmole/ (Dextrose) 255 mls @ 42.5 mls/hr IVPB ONCE ONE Stop: 12/31/17 16:01 Pantoprazole Sodium (Protonix Ec Tab) 40 mg PO BID [facility] Last Admin: 12/30/17 18:30 Dose: Not Given Potassium Chloride (Potassium Chloride Oral Soln) 40 meq PO Q6H [facility] Stop: 12/31/17 13:31 Last Admin: 12/31/17 07:58 Dose: 40 meq Tamsulosin HCl (Flomax) 0.4 mg PO DAILY [facility] Last Admin: 12/30/17 10:00 Dose: Not Given - Labs Labs: 12/31/17 06:31 12/31/17 06:31 PT 16.1 SECONDS (9.7-12.2) H 12/30/17 03:38 INR 1.5 12/30/17 03:38 APTT 90 SECONDS (21-34) H D 12/30/17 13:38 - Head Exam Head Exam: ATRAUMATIC, NORMAL INSPECTION - Eye Exam Eye Exam: EOMI Pupil Exam: NORMAL ACCOMODATION - ENT Exam ENT Exam: Mucous Membranes Moist - Respiratory Exam Respiratory Exam: NORMAL BREATHING PATTERN - Cardiovascular Exam Cardiovascular Exam: REGULAR RHYTHM, +S1, +S2 - GI/Abdominal Exam GI & Abdominal Exam: Normal Bowel Sounds - Extremities Exam Extremities Exam: Full ROM, Normal Capillary Refill, Normal Inspection - Neurological Exam Neurological Exam: Alert, CN II-XII Intact, Oriented x3 - Psychiatric Exam Psychiatric exam: Normal Affect Assessment and Plan - Assessment and Plan (Free Text) Assessment: PE: tolerating oral diet, switch from IV to oral eliquis -s/p IVC filter -Patient remains hemodynamically stable.
[2017-12-31 10:22] LABS: BANDS 2 % (0-2); EOSINOPHIL 3 % (0-4); LYMPHOCYTE 8 % (20-40); MONOCYTE 7 % (0-10); NEUTROPHIL 79 % (50-75); REACTIVE LYMPHOCYTES 1 % (0-0); TOTAL CELLS COUNTED 100
[2017-12-31 10:23] LABS: PLATELET ESTIMATE NORMAL (NORMAL)
[2017-12-31] MEDS ORDERED: Potassium Phosphate 15 MMOLE in Dextrose 5% In Water 250 ML IVPB ONE (11:00)
--- NOTE | 2017-12-31 13:51 | CARD ---
APPROVED REPORT EXAM: Two-dimensional and M-mode echocardiogram with Doppler and color Doppler. Other Information Quality : GoodRhythm : INDICATION CAD 2D DIMENSIONS IVSd1.0 (0.7-1.1cm)Aortic Root (2D)4.2 (2.0-3.7cm) LVDd4.7 (3.9-5.9cm)LVOT Diameter2.1 (1.8-2.4cm) PWd1.2 (0.7-1.1cm)LVDs3.7 (2.5-4.0cm) FS (%) 21.6 %LVEF (%)43.8 (>50%) M-Mode DIMENSIONS Left Atrium (MM)4.43 (2.5-4.0cm)Aortic Root4.25 (2.2-3.7cm) Aortic Cusp Exc.1.95 (1.5-2.0cm) Mitral Valve MV E Umrujvtp13.4cm/sMV A Ddbvqhxb67.0cm/sE/A ratio1.0 TDI E/Lateral E'0.0E/Medial E'0.0 Tricuspid Valve TR Peak [id number]/sTR Peak Gr.[id number] LEFT VENTRICLE The left ventricle is normal size. There is normal left ventricular wall thickness. The systolic function is mildly impaired. Apical hypokinesis Transmitral Doppler flow pattern is Grade I-abnormal relaxation pattern. RIGHT VENTRICLE The right ventricle is normal size. There is normal right ventricular wall thickness. The right ventricular systolic function is normal. ATRIA The left atrium is mildly dilated. The right atrium size is normal. AORTIC VALVE The aortic valve is not well visualized. No aortic regurgitation is present. There is no aortic valvular stenosis. MITRAL VALVE The mitral valve is not well visualized. There is no mitral valve stenosis. There is no mitral valve regurgitation noted. TRICUSPID VALVE There is mild to moderate pulmonary hypertension. GREAT VESSELS The aortic root is mildly enlarged. <Conclusion> The left ventricle is normal size. There is normal left ventricular wall thickness. The systolic function is mildly impaired. Apical hypokinesis Transmitral Doppler flow pattern is Grade I-abnormal relaxation pattern. The right ventricle is normal size. The right ventricular systolic function is normal. There is mild to moderate pulmonary hypertension. The aortic root is mildly enlarged.
--- NOTE | 2017-12-31 23:00 | CP.PCM.PN ---
Subjective - Date & Time of Evaluation Date of Evaluation: 12/31/17 Time of Evaluation: 18:10 - Subjective Subjective: Patient seen and evaluated Denies chest pain and dyspnea ECHO reviewed Normal LV EF Dilated RV and moderate pulmonary HTN c/w Pulmonary Embolism Objective - Vital Signs/Intake and Output Vital Signs (last 24 hours): Temp Pulse Resp BP Pulse Ox 100.1 F H 92 H 26 H 127/76 97 12/31/17 22:43 12/31/17 22:01 12/31/17 22:01 12/31/17 22:02 12/31/17 21:42 Intake and Output: 12/31/17 01/01/18 18:59 06:59 Intake Total 3040 575 Output Total 950 Balance 2090 575 - Medications Medications: Current Medications Apixaban (Eliquis) 10 mg PO BID [facility] Stop: 01/06/18 10:01 Last Admin: 12/31/17 17:43 Dose: 10 mg Piperacillin Sod/Tazobactam Sod (Zosyn 3.375 Gm Iv Premix) 3.375 gm in 50 mls @ 100 mls/hr IVPB Q8H [facility] PRN Reason: Protocol Last Admin: 12/31/17 20:32 Dose: 100 mls/hr Sodium Chloride (Sodium Chloride 0.9%) 1,000 mls @ 150 mls/hr IV .Q6H40M [facility] Last Admin: 12/31/17 22:45 Dose: Not Given Pantoprazole Sodium (Protonix Ec Tab) 40 mg PO BID [facility] Last Admin: 12/31/17 17:43 Dose: 40 mg Tamsulosin HCl (Flomax) 0.4 mg PO DAILY [facility] Last Admin: 12/31/17 10:00 Dose: 0.4 mg - Labs Labs: 12/31/17 06:31 12/31/17 06:31 PT 16.1 SECONDS (9.7-12.2) H 12/30/17 03:38 INR 1.5 12/30/17 03:38 APTT 90 SECONDS (21-34) H D 12/30/17 13:38
[2018-01-01] MEDS: Sodium Chloride 0.9% 1,000 ML IV SCH ×3 (05:02→21:01)
[2018-01-01] MEDS: Piperacill/Tazo 3.375gm in Dex 3.375 GM/50 ML BAG IVPB SCH (05:02)
[2018-01-01 06:21] LABS: BASO % 0.3 % (0.0-2.0); EOS # 0.4 K/uL (0.0-0.7); EOS % 3.1 % (0.0-4.0); HEMOGLOBIN 12.3 g/dL (12.0-18.0); LYMPH # 0.5 K/uL (1.0-4.3); LYMPH % 4.6 % (20.0-40.0); MEAN CELL VOLUME 93.3 fL (80.0-94.0); MEAN CORPUSCULAR HEMOGLOBIN 30.8 pg (27.0-31.0); MEAN PLATELET VOLUME 8.3 fL (7.2-11.7); MONO # 0.8 K/uL (0.0-0.8); MONO % 6.9 % (0.0-10.0); NEUT # 9.6 K/uL (1.8-7.0); NEUT % 85.1 % (50.0-75.0); NRBC % 0.1 % (0.0-2.0); PLATELET COUNT 245 K/uL (130-400); RBC 3.99 Mil/uL (4.40-5.90); RED CELL DISTRIBUTION WIDTH 13.2 % (11.5-14.5); WHITE BLOOD COUNT 11.2 K/uL (4.8-10.8)
[2018-01-01 06:35] LABS: ALB/GLOB RATIO 1.2 (1.0-2.1); ALBUMIN 3.2 g/dL (3.5-5.0); ALT/SGPT 50 U/L (21-72); AST/SGOT 39 U/L (17-59); BLOOD UREA NITROGEN 13 mg/dL (9-20); CALCIUM 8.2 mg/dl (8.6-10.4); GFR AFRICAN-AMERICAN > 60; GFR NON-AFRICAN AMERICAN > 60
[2018-01-01] MEDS ORDERED: DEXTROSE IVPB ONE (07:41)
[2018-01-01] MEDS ORDERED: POTASSIUM PHOSPHATE IVPB ONE (07:41)
[2018-01-01] MEDS ORDERED: WATER IVPB ONE (07:41)
--- NOTE | 2018-01-01 07:47 | CP.PCM.PN ---
Subjective - Date & Time of Evaluation Date of Evaluation: 01/01/18 Time of Evaluation: 07:44 - Subjective Subjective: Surgery: Dr. Dumont Pt seen and examined. Had 1 episode of N/V overnight, currently resolved. + Flatus and BM. No CP/SOB. Objective - Vital Signs/Intake and Output Vital Signs (last 24 hours): Temp Pulse Resp BP Pulse Ox 99.5 F 82 30 H 117/75 99 01/01/18 04:00 01/01/18 07:03 01/01/18 07:03 01/01/18 07:03 01/01/18 07:03 Intake and Output: 01/01/18 01/01/18 06:59 18:59 Intake Total 1750 150 Output Total 275 Balance 1475 150 - Medications Medications: Current Medications Apixaban (Eliquis) 10 mg PO BID [facility] Stop: 01/06/18 10:01 Last Admin: 12/31/17 17:43 Dose: 10 mg Sodium Chloride (Sodium Chloride 0.9%) 1,000 mls @ 150 mls/hr IV .[id number] [facility] Last Admin: 01/01/18 05:02 Dose: 150 mls/hr Potassium Phosphate 15 mmole/ (Dextrose) 255 mls @ 42.5 mls/hr IVPB ONCE ONE Stop: 01/01/18 13:40 Pantoprazole Sodium (Protonix Ec Tab) 40 mg PO BID [facility] Last Admin: 12/31/17 17:43 Dose: 40 mg Tamsulosin HCl (Flomax) 0.4 mg PO DAILY [facility] Last Admin: 12/31/17 10:00 Dose: 0.4 mg - Labs Labs: 01/01/18 06:15 01/01/18 06:12 PT 16.1 SECONDS (9.7-12.2) H 12/30/17 03:38 INR 1.5 12/30/17 03:38 APTT 90 SECONDS (21-34) H D 12/30/17 13:38 - Constitutional Appears: Non-toxic, No Acute Distress - Head Exam Head Exam: ATRAUMATIC, NORMOCEPHALIC - Eye Exam Eye Exam: EOMI - ENT Exam ENT Exam: Mucous Membranes Moist - Neck Exam Neck Exam: Full ROM - Respiratory Exam Respiratory Exam: NORMAL BREATHING PATTERN. absent: Accessory Muscle Use, Respiratory Distress - Cardiovascular Exam Cardiovascular Exam: REGULAR RHYTHM - GI/Abdominal Exam GI & Abdominal Exam: Soft. absent: Distended, Firm, Guarding, Rigid, Tenderness , Rebound Additional comments: midline incision C/D/I w. santiago in place - Extremities Exam Extremities Exam: absent: Calf Tenderness, Pedal Edema - Neurological Exam Neurological Exam: Alert, Awake, Oriented x3 - Psychiatric Exam Psychiatric exam: Normal Affect, Normal Mood - Skin Skin Exam: Dry, Warm Assessment and Plan - Assessment and Plan (Free Text) Assessment: 52M w. strangulated ventral hernia, s/p small bowel resection w. primary repair , POD#4, complicated by B/L PE, s/p IVCF placement, POD#2 -c/w regular diet -decrease IVF -c/w eliquis -encourage OOB, ambulation, and IS use -d/w attending Gabrielle PGY4
[2018-01-01 08:40] LABS: BANDS 2 % (0-2); EOSINOPHIL 3 % (0-4); LYMPHOCYTE 5 % (20-40); MONOCYTE 7 % (0-10); NEUTROPHIL 83 % (50-75); TOTAL CELLS COUNTED 100
[2018-01-01 08:41] LABS: PLATELET ESTIMATE NORMAL (NORMAL)
--- NOTE | 2018-01-01 09:03 | CP.PCM.PN ---
Subjective - Date & Time of Evaluation Date of Evaluation: 01/01/18 Time of Evaluation: 10:10 - Subjective Subjective: Chart review- noted patient had episode of vomiting had Temperature WBC increased was on antibiotic cultures negative after resolving dehydration ARF and after heparin treatment noted WBC normalized , and improvement noted antibiotic discontinued patient seen awake alert not in distress discussion of what happened last night vomited with no abdominal pain felt that food did not stay noted tempaerature and increase in WBC Discussion with Dr Cameron ICU incharge patient off antibiotic cultures negative episode of fever and increasing WBC questionable -whether to resume antibiotic will repeat labs ICU planned PO contrast /follow up after resection-episode of vomiting had bowel movement yesterday started on diet -with an episode of vomiting Objective - Vital Signs/Intake and Output Vital Signs (last 24 hours): Temp Pulse Resp BP Pulse Ox 98.8 F 83 29 H 116/77 97 01/01/18 08:00 01/01/18 09:00 01/01/18 09:00 01/01/18 08:03 01/01/18 09:00 Intake and Output: 01/01/18 01/01/18 06:59 18:59 Intake Total 1750 550 Output Total 275 350 Balance 1475 200 - Medications Medications: Current Medications Apixaban (Eliquis) 10 mg PO BID [facility] Stop: 01/06/18 10:01 Last Admin: 12/31/17 17:43 Dose: 10 mg Docusate Sodium (Colace) 100 mg PO BID [facility] Potassium Phosphate 15 mmole/ (Dextrose) 105 mls @ 52.5 mls/hr IVPB ONCE ONE Stop: 01/01/18 09:40 Last Admin: 01/01/18 08:29 Dose: 52.5 mls/hr Sodium Chloride (Sodium Chloride 0.9%) 1,000 mls @ 75 mls/hr IV .[id number] [facility] Last Admin: 01/01/18 08:30 Dose: 75 mls/hr Pantoprazole Sodium (Protonix Ec Tab) 40 mg PO BID [facility] Last Admin: 12/31/17 17:43 Dose: 40 mg Sennosides (Senokot Tab) 8.6 mg PO DAILY [facility] Tamsulosin HCl (Flomax) 0.4 mg PO DAILY [facility] Last Admin: 12/31/17 10:00 Dose: 0.4 mg - Labs Labs: 01/01/18 06:15 07/08/18 06:12 PT 16.1 SECONDS (9.7-12.2) H 12/30/17 03:38 INR 1.5 12/30/17 03:38 APTT 90 SECONDS (21-34) H D 12/30/17 13:38 - Constitutional Appears: Non-toxic, No Acute Distress - Head Exam Head Exam: ATRAUMATIC, NORMOCEPHALIC - Eye Exam Eye Exam: Normal appearance - ENT Exam ENT Exam: Mucous Membranes Moist - Neck Exam Neck Exam: Full ROM. absent: Tenderness - Respiratory Exam Respiratory Exam: Clear to Ausculation Bilateral, NORMAL BREATHING PATTERN - Cardiovascular Exam Cardiovascular Exam: REGULAR RHYTHM - GI/Abdominal Exam GI & Abdominal Exam: Soft, Hypoactive Bowel Sounds, Normal Bowel Sounds. absent : Distended - Extremities Exam Extremities Exam: Full ROM (ambulatory). absent: Pedal Edema, Tenderness - Neurological Exam Neurological Exam: Alert, Awake, Normal Gait, Oriented x3 - Psychiatric Exam Psychiatric exam: Normal Affect, Normal Mood - Skin Skin Exam: Intact, Normal Color Assessment and Plan - Assessment and Plan (Free Text) Assessment: Patient admitted for multiple acute medical probems vomiting Dehydration hypotension , resolved , Incarcerated hernia post surgery with resection of SBO post op improvement episode of hypotension-found to have PE heparin treatment to PO Eliquis improving then episode of vomiting and fever last night -further GI evaluation as planned and discussed with ICU patient clinically stable Potassium improved
[2018-01-01] MEDS ORDERED: Iohexol 240 (50 ml) PO ONE (09:30)
[2018-01-01] MEDS: Pantoprazole 40 mg EC Tab PO SCH ×2 (09:53→17:12)
--- NOTE | 2018-01-01 10:34 | CP.PCM.PN ---
Subjective - Date & Time of Evaluation Date of Evaluation: 01/01/18 Time of Evaluation: 09:00 - Subjective Subjective: PAtient toelrating oral diet. had one BM yesterday, Patient (+)Febrile last night. today leukocytosis high, patient deneis any abdominal pain Objective - Vital Signs/Intake and Output Vital Signs (last 24 hours): Temp Pulse Resp BP Pulse Ox 98.8 F 88 23 130/80 98 01/01/18 08:00 01/01/18 10:03 01/01/18 10:03 01/01/18 10:03 01/01/18 10:03 Intake and Output: 01/01/18 01/01/18 06:59 18:59 Intake Total 1750 800 Output Total 275 350 Balance 1475 450 - Medications Medications: Current Medications Apixaban (Eliquis) 10 mg PO BID [facility] Stop: 01/06/18 10:01 Last Admin: 01/01/18 09:53 Dose: 10 mg Docusate Sodium (Colace) 100 mg PO BID [facility] Last Admin: 01/01/18 09:53 Dose: 100 mg Sodium Chloride (Sodium Chloride 0.9%) 1,000 mls @ 75 mls/hr IV .[id number] [facility] Last Admin: 01/01/18 08:30 Dose: 75 mls/hr Pantoprazole Sodium (Protonix Ec Tab) 40 mg PO BID [facility] Last Admin: 01/01/18 09:53 Dose: 40 mg Sennosides (Senokot Tab) 8.6 mg PO DAILY [facility] Last Admin: 01/01/18 09:53 Dose: 8.6 mg Tamsulosin HCl (Flomax) 0.4 mg PO DAILY [facility] Last Admin: 01/01/18 09:53 Dose: 0.4 mg - Labs Labs: 01/01/18 06:15 01/01/18 06:12 PT 16.1 SECONDS (9.7-12.2) H 12/30/17 03:38 INR 1.5 12/30/17 03:38 APTT 90 SECONDS (21-34) H D 12/30/17 13:38 - Constitutional Appears: Well - Head Exam Head Exam: ATRAUMATIC, NORMAL INSPECTION, NORMOCEPHALIC - ENT Exam ENT Exam: Mucous Membranes Moist - Respiratory Exam Respiratory Exam: NORMAL BREATHING PATTERN - Cardiovascular Exam Cardiovascular Exam: REGULAR RHYTHM, +S1, +S2 - GI/Abdominal Exam GI & Abdominal Exam: Soft, Normal Bowel Sounds Additional comments: wound intact - Extremities Exam Extremities Exam: Normal Inspection Assessment and Plan - Assessment and Plan (Free Text) Assessment: Nausea/vomitting/fever/leukocytosis: will obtain CT abd/pelvis with oral contrast, next time febrile will lugo culture -PE: oxygen requirement nasal canula 2 liters, on eliquis and s/p IVC filter -tolerating oral diet (feels hungry) -one episode of nausea/vomitting -hypopotassemia: replaced today -continue to monitor PAtient remains hemodynamically stable. Addendum: CT abdomen: reveals possible fluid retention and signs of increased gastrointestinal transit time/ileus. Significant amount of contrast still in stomach. Will make patient NPO, continue IVF -switch from oral eliquis to SUBQ lovenox -f/u abdominal CXR for contrast transition to rectum -Surgery input appreciated. continue to monitor
--- NOTE | 2018-01-01 13:32 | CT ---
PROCEDURE: CT Abdomen and Pelvis with Oral contrast. HISTORY: Postoperative fever COMPARISON: Comparison made with CTA chest pelvis 12/29/2017 and prior MRI of the abdomen pelvis 08/04/2016 leslie TECHNIQUE: Contiguous axial images of the abdomen and pelvis. Oral contrast was administered. No IV contrast given. Coronal and Sagittal reformats generated. This CT exam was performed using one or more of the following dose reduction techniques: Automated exposure control, adjustment of the mA and/or kV according to patient size, and/or use of iterative reconstruction technique. Radiation dose: Total exam DLP = 1265.2 mGy-cm. FINDINGS: LOWER THORAX: Small right-sided effusion and minor right basilar atelectasis. . Tiny left-sided effusion with minimal left basilar atelectasis. LIVER: Previously noted 3.2 x 3.2 x 2.4 cm heterogeneous mass in the left lobe liver is not appreciated on this study, suspicious for neoplasm is not seen on this exam. . Clinical correlation recommended. . Again seen is a small elliptical shaped 13 mm cyst. Previously noted additional small cysts are less well seen on this study compared to high-resolution MRI. GALLBLADDER AND BILE DUCTS: Unremarkable. PANCREAS: Pancreas appears slightly atrophic and fatty replaced. SPLEEN: Unremarkable. No splenomegaly. ADRENALS: Unremarkable. KIDNEYS AND URETERS: Unremarkable. No stone or hydronephrosis. BLADDER: Grossly unremarkable. REPRODUCTIVE: Unremarkable. APPENDIX: Normal appendix BOWEL: Evaluation of the bowel slightly limited due to incomplete opacification. Stomach is distended with air and contrast material. There are several moderately distended loops of proximal small bowel in the mid and left abdomen with questionable transition point at the level of anastomosis presumably of small bowel at the level of just to the right of midline just above the level of the subcutaneous fluid collection. Plain film radiographs in 12 hours could be performed to assess for passage of contrast material within these loops into the colon and exclude partial and or intermittent obstruction.The small bowel distal to this area and colon collapsed. PERITONEUM: Interval hernia repair mid abdomen. There is a small elliptical shaped fluid collection within the subcutaneous tissues subjacent to the incision site which measures approximately 7.7 x 3.4 x 3.2 cm. . Small amount of nondependent air is present (air-fluid collection). Mild surrounding infiltration changes are present. . Hounsfield units =1.2 consistent with serous fluid. Small fat containing umbilical hernia. Small bilateral fat containing inguinal hernias are present LYMPH NODES: Unremarkable. No enlarged lymph nodes. VASCULATURE: In situ IVC filter. . BONES: Minor multilevel degenerative spondylosis of the lower thoracic and lumbar spine. No acute compression fractures no retropulsed fragments. OTHER FINDINGS: None. IMPRESSION: Small bilateral effusions and minor bibasilar atelectasis right greater than left. Interval hernia repair mid abdomen. There is a small elliptical shaped fluid collection within the subcutaneous tissues subjacent to the incision site which measures approximately 7.7 x 3.4 x 3.2 cm. . Small amount of nondependent air is present (air-fluid collection). Mild surrounding infiltration changes are present. . Hounsfield units =1.2 consistent with serous fluid. There are several moderately distended loops of proximal small bowel in the mid and left abdomen with questionable transition point at the level of anastomosis presumably of small bowel at the level of just to the right of midline just above the level of the subcutaneous fluid collection. Plain film radiographs in 12 hours could be performed to assess for passage of contrast material within these loops into the colon and exclude partial and or intermittent obstruction. Previously noted 3.2 x 3.2 x 2.4 cm heterogeneous mass in the left lobe liver is not appreciated on this study, suspicious for neoplasm is not seen on this exam. . Clinical correlation recommended. . Again seen is a small elliptical shaped 13 mm cyst. Previously noted additional small cysts are less well seen on this study compared to high-resolution MRI.
--- NOTE | 2018-01-01 21:26 | CARD ---
APPROVED REPORT EKG Measurement Heart [id number] <Conclusion> Sinus tachycardia Misplaced precordial electrodes Abnormal ECG Please repeat
--- NOTE | 2018-01-01 21:36 | CP.PCM.PN ---
Subjective - Date & Time of Evaluation Date of Evaluation: 01/01/18 Time of Evaluation: 14:10 - Subjective Subjective: Patient seen and evaluated Events noted Denies chest pain and dyspnea ECHO pending On Ac for PE Objective - Vital Signs/Intake and Output Vital Signs (last 24 hours): Temp Pulse Resp BP Pulse Ox 99.6 F 86 18 123/85 100 01/01/18 20:00 01/01/18 21:02 01/01/18 21:02 01/01/18 21:03 01/01/18 16:03 Intake and Output: 01/01/18 01/02/18 18:59 06:59 Intake Total 2000 225 Output Total 1800 300 Balance 200 -75 - Medications Medications: Current Medications Docusate Sodium (Colace) 100 mg PO BID [facility] Last Admin: 01/01/18 17:12 Dose: Not Given Enoxaparin Sodium (Lovenox) 120 mg SC Q12 [facility] Sodium Chloride (Sodium Chloride 0.9%) 1,000 mls @ 75 mls/hr IV .[id number] [facility] Last Admin: 01/01/18 21:01 Dose: Not Given Pantoprazole Sodium (Protonix Ec Tab) 40 mg PO BID [facility] Last Admin: 01/01/18 17:12 Dose: Not Given Sennosides (Senokot Tab) 8.6 mg PO DAILY [facility] Last Admin: 01/01/18 09:53 Dose: 8.6 mg Tamsulosin HCl (Flomax) 0.4 mg PO DAILY [facility] Last Admin: 01/01/18 09:53 Dose: 0.4 mg - Labs Labs: 01/01/18 06:15 01/01/18 06:12 PT 16.1 SECONDS (9.7-12.2) H 12/30/17 03:38 INR 1.5 12/30/17 03:38 APTT 90 SECONDS (21-34) H D 12/30/17 13:38
[2018-01-02 06:23] LABS: BASO % 0.2 % (0.0-2.0); EOS # 0.3 K/uL (0.0-0.7); EOS % 3.3 % (0.0-4.0); LYMPH # 0.7 K/uL (1.0-4.3); LYMPH % 6.2 % (20.0-40.0); MEAN CELL VOLUME 91.6 fL (80.0-94.0); MEAN CORPUSCULAR HEMOGLOBIN 31.6 pg (27.0-31.0); MEAN CORPUSCULAR HGB CONC 34.5 g/dL (33.0-37.0); MONO # 0.8 K/uL (0.0-0.8); MONO % 7.6 % (0.0-10.0); NEUT # 8.8 K/uL (1.8-7.0); NEUT % 82.7 % (50.0-75.0); PLATELET COUNT 260 K/uL (130-400); RBC 3.82 Mil/uL (4.40-5.90); RED CELL DISTRIBUTION WIDTH 13.2 % (11.5-14.5); WHITE BLOOD COUNT 10.6 K/uL (4.8-10.8)
[2018-01-02 06:36] LABS: INR 1.3; PROTHROMBIN TIME 13.8 SECONDS (9.7-12.2)
[2018-01-02 06:39] LABS: ALT/SGPT 88 U/L (21-72); AST/SGOT 72 U/L (17-59); BLOOD UREA NITROGEN 13 mg/dL (9-20); CALCIUM 8.4 mg/dl (8.6-10.4); GFR AFRICAN-AMERICAN > 60; GFR NON-AFRICAN AMERICAN > 60
[2018-01-02] MEDS: Sodium Chloride 0.9% 1,000 ML IV SCH ×2 (08:14→11:43)
[2018-01-02 08:45] LABS: BANDS 2 % (0-2); EOSINOPHIL 4 % (0-4); LYMPHOCYTE 4 % (20-40); MONOCYTE 6 % (0-10); NEUTROPHIL 84 % (50-75); PLATELET ESTIMATE NORMAL (NORMAL); TOTAL CELLS COUNTED 100
--- NOTE | 2018-01-02 09:28 | CP.PCM.PN ---
Subjective - Date & Time of Evaluation Date of Evaluation: 01/02/18 Time of Evaluation: 10:00 - Subjective Subjective: chart reviewed, noted another episode of vomiting and fever ct abdomen done potassium low again Patient seen out of bed to chair review of events last night patient denies pain, had solid food but after eating - he felt that food wont agree to his stomach and vomited, CT abdomen showed a per report had bowel movement back to clear liquids no fever further discussion of condition and plan Objective - Vital Signs/Intake and Output Vital Signs (last 24 hours): Temp Pulse Resp BP Pulse Ox 98.7 F 76 34 H 137/75 98 01/02/18 08:00 01/02/18 08:03 01/02/18 08:03 01/02/18 08:03 01/02/18 08:00 Intake and Output: 01/02/18 01/02/18 06:59 18:59 Intake Total 900 150 Output Total 300 Balance 600 150 - Medications Medications: Current Medications Docusate Sodium (Colace) 100 mg PO BID [facility] Last Admin: 01/01/18 17:12 Dose: Not Given Enoxaparin Sodium (Lovenox) 120 mg SC Q12 [facility] Sodium Chloride (Sodium Chloride 0.9%) 1,000 mls @ 75 mls/hr IV .[id number] [facility] Last Admin: 01/02/18 08:14 Dose: 75 mls/hr Potassium Chloride (Potassium Chloride 20 Meq/100 Ml) 20 meq in 100 mls @ 50 mls/hr IVPB ONCE ONE Stop: 01/02/18 11:20 Pantoprazole Sodium (Protonix Ec Tab) 40 mg PO BID [facility] Last Admin: 01/01/18 17:12 Dose: Not Given Sennosides (Senokot Tab) 8.6 mg PO DAILY [facility] Last Admin: 01/01/18 09:53 Dose: 8.6 mg Tamsulosin HCl (Flomax) 0.4 mg PO DAILY [facility] Last Admin: 01/01/18 09:53 Dose: 0.4 mg - Labs Labs: 01/02/18 06:15 01/02/18 06:15 PT 13.8 SECONDS (9.7-12.2) H 01/02/18 06:15 INR 1.3 01/02/18 06:15 APTT 29 SECONDS (21-34) D 01/02/18 06:15 - Constitutional Appears: Non-toxic, No Acute Distress - Head Exam Head Exam: ATRAUMATIC, NORMOCEPHALIC - Eye Exam Eye Exam: Normal appearance. absent: Nystagmus - ENT Exam ENT Exam: Mucous Membranes Moist - Neck Exam Neck Exam: Full ROM. absent: Tenderness - Respiratory Exam Respiratory Exam: Clear to Ausculation Bilateral, NORMAL BREATHING PATTERN - Cardiovascular Exam Cardiovascular Exam: REGULAR RHYTHM - GI/Abdominal Exam GI & Abdominal Exam: Soft, Tenderness (reproducible on deep palpation, bandaged surgery site ), Diminished Bowel Sounds. absent: Rebound - Back Exam Back Exam: Full ROM. absent: CVA tenderness (R) - Neurological Exam Neurological Exam: Alert, Awake, Normal Gait, Oriented x3 - Psychiatric Exam Psychiatric exam: Normal Affect, Normal Mood - Skin Skin Exam: Intact, Normal Color Assessment and Plan - Assessment and Plan (Free Text) Assessment: Patient post surgery for Incarcerated hernia- improving - withadvancing diets, with episodes of vomiting, CT abdomen, non obstructive- patient had bowel movement, on further observation from cear liquids Hypertension with hypotension from GI loss with dehydration ARF- resolved- observing BP- still off BP meds Hypopotassemia- on supplementation- noted to be low again after episode of vomiting -will continue to supplement and observe PE- on anticoagulation accordingly no bleeding further observation
--- NOTE | 2018-01-02 09:43 | OP ---
PROCEDURE DATE: 12/30/2017 PREOPERATIVE DIAGNOSIS: Pulmonary embolism. PROCEDURE CARRIED OUT: Insertion of Option ELITE filter via right femoral vein with C-arm fluoroscopy, ultrasound-guided puncture and micropuncture technique. SURGEON: Hung Dumont Jr., MD GRANITE SETTER: Domingo Messer ANESTHESIOLOGIST: Odalis Olivier. ANESTHESIA: Local with sedation. INDICATION FOR PROCEDURE: The patient is a 52-year-old man with bowel obstruction, gangrenous bowel, underwent surgery, doing well, shortness of breath developed. CTA chest consistent with bilateral pulmonary emboli. Lower extremity ultrasound did not demonstrate any veins in the areas examined. OPERATIVE FINDINGS: One filter was inserted uneventfully via right femoral vein and deployed at the level of the renal veins above the confluence. DESCRIPTION OF PROCEDURE: The patient was given local anesthesia using ultrasound guidance in a longitudinal fashion. The femoral vein was accessed. Under fluoroscopic control, guidewire was advanced centrally. A micropuncture technique was used initially. Guidewire was advanced at the level of the superior vena cava. Filter was then deployed at the appropriate location. A venacavogram had been taken showing the location of this. Subsequent to this, we then applied pressure to the groin. We took subsequent picture confirming the location above the confluence in the level of the veins in an upright position without any significant tilt. Ultrasound image of the groin showed the vein was approximately 18 mm in diameter with normal compressibility and no intraluminal thrombosis. Hung Dumont Jr., MD cc:
[2018-01-02] MEDS: Pantoprazole 40 mg EC Tab PO SCH ×2 (09:46→18:24)
[2018-01-02] MEDS: Enoxaparin 120 mg Syringe SC SCH ×2 (09:46→21:32)
[2018-01-02] MEDS ORDERED: Potassium Chloride 20 mEq ER Tab PO SCH ×2 (10:00→10:30)
--- NOTE | 2018-01-02 12:01 | CP.PCM.PN ---
Subjective - Date & Time of Evaluation Date of Evaluation: 01/02/18 Time of Evaluation: 07:00 - Subjective Subjective: General Surgery Progress Note for Dr. Dumont 52M seen and evaluated this AM. Pt is sitting up in bed, awake and resting comfortably. No acute events overnight. Pt experienced some nausea and vomiting with regular diet yesterday. Admits to having BM and passing flatus. Is ambulating. Denies f/c, SOB, CP, or urinary symptoms. Objective - Vital Signs/Intake and Output Vital Signs (last 24 hours): Temp Pulse Resp BP Pulse Ox 98.7 F 91 H 29 H 132/78 98 01/02/18 08:00 01/02/18 11:03 01/02/18 11:03 01/02/18 11:03 01/02/18 08:00 Intake and Output: 01/02/18 01/02/18 06:59 18:59 Intake Total 900 375 Output Total 300 300 Balance 600 75 - Medications Medications: Current Medications Docusate Sodium (Colace) 100 mg PO BID [facility] Last Admin: 01/02/18 09:46 Dose: 100 mg Enoxaparin Sodium (Lovenox) 120 mg SC Q12 [facility] Last Admin: 01/02/18 09:46 Dose: 120 mg Sodium Chloride (Sodium Chloride 0.9%) 1,000 mls @ 75 mls/hr IV .[id number] [facility] Last Admin: 01/02/18 11:43 Dose: Not Given Pantoprazole Sodium (Protonix Ec Tab) 40 mg PO BID [facility] Last Admin: 01/02/18 09:46 Dose: 40 mg Potassium Chloride (K-Dur 20 Meq Er Tab) 20 meq PO DAILY [facility] Stop: 01/04/18 10:01 Last Admin: 01/02/18 11:33 Dose: 20 meq Sennosides (Senokot Tab) 8.6 mg PO DAILY [facility] Last Admin: 01/02/18 09:46 Dose: 8.6 mg Tamsulosin HCl (Flomax) 0.4 mg PO DAILY [facility] Last Admin: 01/02/18 09:46 Dose: 0.4 mg - Labs Labs: 01/02/18 06:15 01/02/18 06:15 PT 13.8 SECONDS (9.7-12.2) H 01/02/18 06:15 INR 1.3 01/02/18 06:15 APTT 29 SECONDS (21-34) D 01/02/18 06:15 - Constitutional Appears: Well, Non-toxic, No Acute Distress - Head Exam Head Exam: ATRAUMATIC, NORMAL INSPECTION, NORMOCEPHALIC - Eye Exam Eye Exam: EOMI, Normal appearance - Respiratory Exam Respiratory Exam: Clear to Ausculation Bilateral, NORMAL BREATHING PATTERN - Cardiovascular Exam Cardiovascular Exam: REGULAR RHYTHM, +S1, +S2. absent: Murmur - GI/Abdominal Exam GI & Abdominal Exam: Soft, Normal Bowel Sounds. absent: Firm, Guarding, Rigid, Tenderness Additional comments: santiago intact with no drainage or erythema around the incision site - Neurological Exam Neurological Exam: Alert, Awake, Oriented x3 - Psychiatric Exam Psychiatric exam: Normal Affect, Normal Mood - Skin Skin Exam: Dry, Intact, Normal Color, Warm Assessment and Plan - Assessment and Plan (Free Text) Assessment: 52M w. strangulated ventral hernia, s/p small bowel resection w. primary repair , POD#5, complicated by B/L PE, s/p IVCF placement, POD#3 Plan: c/w liquid diet and ADAT c/w eliquis encourage IS use ambulation further recs per Dr. Tim James PGY1
--- NOTE | 2018-01-02 12:12 | CP.CCUPN ---
CCU Subjective - Physician Review Subjective (Free Text): 12/29/17 12:59 Pt seen and examined at bedside this morning. No acute events overnight. This morning, pt had NG tube in place draining billious fluid. Pt also had melvin in place. Patient complained of mild abd discomfort but denied having any nausea. Patient not passing gas or had a bowel movement. Denies having any F/C, LE swelling or pain, SOB, CP. 01/02/18 12:09 Pt seen and examined at bedside. No acute events overnight. Patient afebrile overnight. Denies having any CP, SOB, abd pain, N/V, F/C. Patient is OOB to chair without difficulty. Last BM was yesterday. Currently passing gas. CCU Objective - Vital Signs / Intake & Output Vital Signs (Last 4 hours): Vital Signs Pulse Resp BP 01/02/18 11:03 91 H 29 H 132/78 01/02/18 11:00 95 H 35 H 01/02/18 10:03 123/78 01/02/18 10:00 90 20 01/02/18 09:03 118/77 01/02/18 09:00 85 32 H Intake and Output (Last 8hrs): Intake & Output 01/01/18 01/02/18 01/02/18 22:59 06:59 14:59 Intake Total 600 600 450 Output Total 1400 300 Balance -800 600 150 Weight 300 lb 3.68 oz Intake: Intake, IV Amount 600 600 450 Right Hand 600 600 450 Output: Urine 600 300 Urine, Voided 600 300 Emesis 800 Other: # Bowel Movements 1 - Physical Exam Head: Positive for: Atraumatic, Normocephalic Extroacular Muscles: Positive for: EOMI Mouth: Positive for: Moist Mucous Membranes Respiratory/Chest: Positive for: Clear to Auscultation. Negative for: Respiratory Distress, Accessory Muscle Use, Wheezes, Rales, Rhonchi Cardiovascular: Positive for: Regular Rate and Rhythm, Normal S1, S2. Negative for: Murmurs, Rub, Gallop, Muffled Abdomen: Positive for: Tenderness (incision site tenderness), Normal Bowel Sounds. Negative for: Distention, Peritoneal Signs, Rebound, Guarding Lower Extremity: Positive for: Normal Inspection. Negative for: Edema, CALF TENDERNESS Neurological: Positive for: GCS=15, Speech Normal Skin: Positive for: Warm, Dry, Normal Color. Negative for: Rashes Psychiatric: Positive for: Alert, Oriented x 3, Normal Insight, Normal Concentration - Medications Active Medications: Active Medications Generic Name Dose Route Start Last Admin Trade Name Carloz PRN Reason Stop Dose Admin Docusate Sodium 100 mg 01/01/18 10:00 01/02/18 09:46 Colace PO 100 mg BID [facility] Administration Enoxaparin Sodium 120 mg 01/02/18 10:00 01/02/18 09:46 Lovenox SC 120 mg Q12 [facility] Administration Sodium Chloride 1,000 mls @ 75 mls/hr 01/01/18 07:51 01/02/18 11:43 Sodium Chloride 0.9% IV Not Given .[id number] [facility] Pantoprazole Sodium 40 mg 12/30/17 18:30 01/02/18 09:46 Protonix Ec Tab PO 40 mg BID [facility] Administration Potassium Chloride 20 meq 01/02/18 10:30 01/02/18 11:33 K-Dur 20 Meq Er Tab PO 01/04/18 10:01 20 meq DAILY [facility] Administration Sennosides 8.6 mg 01/01/18 10:00 01/02/18 09:46 Senokot Tab PO 8.6 mg DAILY [facility] Administration Tamsulosin HCl 0.4 mg 12/29/17 14:30 01/02/18 09:46 Flomax PO 0.4 mg DAILY [facility] Administration - Patient Studies Lab Studies: Microbiology Studies 12/28/17 22:42 Gram Stain - Final Ascitic Fluid Body Fluid Culture - Final No growth. 12/30/17 03:38 Blood Culture - Preliminary Blood-Venous NO GROWTH AFTER 3 DAYS 12/30/17 03:38 Blood Culture - Preliminary Blood-Venous NO GROWTH AFTER 3 DAYS Lab Studies 01/02/18 01/02/18 01/02/18 Range/Units 06:15 06:15 06:15 WBC 10.6 (4.8-10.8) K/uL RBC 3.82 L (4.40-5.90) Mil/uL Hgb 12.0 (12.0-18.0) g/dL Hct 34.9 L (35.0-51.0) % MCV 91.6 (80.0-94.0) fL MCH 31.6 H (27.0-31.0) pg MCHC 34.5 (33.0-37.0) g/dL RDW 13.2 (11.5-14.5) % Plt Count 260 (130-400) K/uL MPV 8.0 (7.2-11.7) fL Neut % (Auto) 82.7 H (50.0-75.0) % Lymph % (Auto) 6.2 L (20.0-40.0) % [place] % (Auto) 7.6 (0.0-10.0) % Eos % (Auto) 3.3 (0.0-4.0) % Baso % (Auto) 0.2 (0.0-2.0) % Neut # (Auto) 8.8 H (1.8-7.0) K/uL Lymph # (Auto) 0.7 L (1.0-4.3) K/uL [place] # (Auto) 0.8 (0.0-0.8) K/uL Eos # (Auto) 0.3 (0.0-0.7) K/uL Baso # (Auto) 0.0 (0.0-0.2) K/uL Neutrophils % (Manual) 84 H (50-75) % Band Neutrophils % 2 (0-2) % Lymphocytes % (Manual) 4 L (20-40) % Monocytes % (Manual) 6 (0-10) % Eosinophils % (Manual) 4 (0-4) % Platelet Estimate Normal (NORMAL) RBC Morphology Normal PT 13.8 H (9.7-12.2) SECONDS INR 1.3 APTT 29 D (21-34) SECONDS Sodium 138 (132-148) mmol/L Potassium 3.3 L (3.6-5.2) mmol/L Chloride 104 (98-107) mmol/L Carbon Dioxide 26 (22-30) mmol/L Anion Gap 12 (10-20) BUN 13 (9-20) mg/dL Creatinine 1.0 (0.8-1.5) mg/dL Est GFR ( Amer) > 60 Est GFR (Non-Af Amer) > 60 Random Glucose 95 (75-110) mg/dL Calcium 8.4 L (8.6-10.4) mg/dl Phosphorus 2.4 L (2.5-4.5) mg/dL Magnesium 2.1 (1.6-2.3) mg/dL Total Bilirubin 0.8 (0.2-1.3) mg/dL AST 72 H D (17-59) U/L ALT 88 H D (21-72) U/L Alkaline Phosphatase 57 (38-126) U/L Total Protein 5.8 L (6.3-8.3) g/dL Albumin 3.0 L (3.5-5.0) g/dL Globulin 2.8 (2.2-3.9) gm/dL Albumin/Globulin Ratio 1.0 (1.0-2.1) Laboratory Results - last 24 hr 01/02/18 01/02/18 01/02/18 06:15 06:15 06:15 WBC 10.6 RBC 3.82 L Hgb 12.0 Hct 34.9 L MCV 91.6 MCH 31.6 H MCHC 34.5 RDW 13.2 Plt Count 260 MPV 8.0 Neut % (Auto) 82.7 H Lymph % (Auto) 6.2 L [place] % (Auto) 7.6 Eos % (Auto) 3.3 Baso % (Auto) 0.2 Neut # (Auto) 8.8 H Lymph # (Auto) 0.7 L [place] # (Auto) 0.8 Eos # (Auto) 0.3 Baso # (Auto) 0.0 Neutrophils % (Manual) 84 H Band Neutrophils % 2 Lymphocytes % (Manual) 4 L Monocytes % (Manual) 6 Eosinophils % (Manual) 4 Platelet Estimate Normal RBC Morphology Normal PT 13.8 H INR 1.3 APTT 29 D Sodium 138 Potassium 3.3 L Chloride 104 Carbon Dioxide 26 Anion Gap 12 BUN 13 Creatinine 1.0 Est GFR ( Amer) > 60 Est GFR (Non-Af Amer) > 60 Random Glucose 95 Calcium 8.4 L Phosphorus 2.4 L Magnesium 2.1 Total Bilirubin 0.8 AST 72 H D ALT 88 H D Alkaline Phosphatase 57 Total Protein 5.8 L Albumin 3.0 L Globulin 2.8 Albumin/Globulin Ratio 1.0 Review of Systems - Constitutional Constitutional: absent: Fever, Chills - EENT Eyes: absent: Blurred Vision, Change in Vision Nose/Mouth/Throat: absent: Nasal Congestion, Nasal Discharge - Cardiovascular Cardiovascular: absent: Chest Pain, Dyspnea, Leg Edema - Respiratory Respiratory: absent: Cough, Dyspnea, Wheezing, Chest Congestion - Gastrointestinal Gastrointestinal: absent: Abdominal Pain, Constipation, Diarrhea, Nausea, Vomiting - Genitourinary Genitourinary: absent: Dysuria, Urinary Frequency - Musculoskeletal Musculoskeletal: absent: Arthralgias, Back Pain - Integumentary Integumentary: absent: Acne, Rash - Neurological Neurological: absent: Tingling, Weakness - Psychiatric Psychiatric: absent: Anxiety, Depression Critical Care Progress Note - Extremities/Vascular Does the Patient have a Central Venous Catheter?: No Does the Patient have a Melvin Catheter?: No Does the Patient need a Melvin Catheter?: No - Prophylaxis GI Prophylaxis GI: PPI - Prophylaxis DVT Prophylaxis DVT: Lovenox - Nutrition Nutrition: Nutrition Category Date Time Status Liquid Diet [DIET] Diets 01/02/18 Breakfast Active Assessment/Plan - Assessment and Plan (Free Text) Assessment: 52 year old male with past medical history of HTN was admitted for incarcerated ventral hernia s/p primary repair on incarcerated ventral hernia with small bowel resection POD #5. Post-op, pt developed PE s/p IVC filter placed POD #3 PE - CT PE protocol showed multiple extemsive pulmonary emboli including saddle pulmonary emboli - Pt started on Lovenox. Eliquis was placed on hold due to questionable obstruction yesterday - Continue to monitor PT/PTT - IVC filter placed POD #3 Incarcerated hernia s/p primary repair with small bowel resection POD #5 - Sx, Dr. Dumont in consulted - Pt had episode of N/V yesterday. CT of abdomen/pelvis showed moderately distended small bowel loops. - This am, pt is asymptomatic. - Will advance diet base don surgical recs - Continue Senokot and colace - NS at 75 cc - Continue incentive spirometer CARINE - resolved Hx of HTN - continue to monitor Prophylaxis - Protonix - Lovenox - OOB to chair - PT Case discussed with attending, Dr. Cameron - Date & Time Date: 01/02/18 Time: 12:13
--- NOTE | 2018-01-02 22:57 | CP.PCM.PN ---
Subjective - Date & Time of Evaluation Date of Evaluation: 01/02/18 Time of Evaluation: 10:30 - Subjective Subjective: Patient seen and evaluated Denies chestpain and dyspnea PE on anticoagulation Objective - Vital Signs/Intake and Output Vital Signs (last 24 hours): Temp Pulse Resp BP Pulse Ox 99.2 F 83 28 H 122/69 97 01/02/18 12:00 01/02/18 18:00 01/02/18 18:00 01/02/18 18:00 01/02/18 12:00 Intake and Output: 01/02/18 01/03/18 18:59 06:59 Intake Total 2340 75 Output Total 301 Balance 2039 75 - Medications Medications: Current Medications Docusate Sodium (Colace) 100 mg PO BID [facility] Last Admin: 01/02/18 18:24 Dose: 100 mg Enoxaparin Sodium (Lovenox) 120 mg SC Q12 [facility] Last Admin: 01/02/18 21:32 Dose: 120 mg Sodium Chloride (Sodium Chloride 0.9%) 1,000 mls @ 75 mls/hr IV .[id number] [facility] Last Admin: 01/02/18 11:43 Dose: Not Given Pantoprazole Sodium (Protonix Ec Tab) 40 mg PO BID [facility] Last Admin: 01/02/18 18:24 Dose: 40 mg Potassium Chloride (K-Dur 20 Meq Er Tab) 20 meq PO DAILY [facility] Stop: 01/04/18 10:01 Last Admin: 01/02/18 11:33 Dose: 20 meq Sennosides (Senokot Tab) 8.6 mg PO DAILY [facility] Last Admin: 01/02/18 09:46 Dose: 8.6 mg Tamsulosin HCl (Flomax) 0.4 mg PO DAILY [facility] Last Admin: 01/02/18 09:46 Dose: 0.4 mg - Labs Labs: 01/02/18 06:15 01/02/18 06:15 PT 13.8 SECONDS (9.7-12.2) H 01/02/18 06:15 INR 1.3 01/02/18 06:15 APTT 29 SECONDS (21-34) D 01/02/18 06:15
[2018-01-03 06:33] LABS: BLOOD UREA NITROGEN 12 mg/dL (9-20); CALCIUM 8.3 mg/dl (8.6-10.4); GFR AFRICAN-AMERICAN > 60; GFR NON-AFRICAN AMERICAN > 60
--- NOTE | 2018-01-03 07:33 | CP.PCM.PN ---
Subjective - Date & Time of Evaluation Date of Evaluation: 01/03/18 Time of Evaluation: 07:30 - Subjective Subjective: Surgery: Dr. Dumont Pt seen and examined. Resting comfortably in bed. Pain controlled. Tolerated CLD. No N/V. +Flatus/BM. Would like to eat more. Objective - Vital Signs/Intake and Output Vital Signs (last 24 hours): Temp Pulse Resp BP Pulse Ox 99 F 75 19 139/84 98 01/02/18 20:00 01/02/18 20:00 01/02/18 20:00 01/02/18 20:00 01/02/18 20:00 Intake and Output: 01/03/18 01/03/18 06:59 18:59 Intake Total 75 Balance 75 - Medications Medications: Current Medications Docusate Sodium (Colace) 100 mg PO BID [facility] Last Admin: 01/02/18 18:24 Dose: 100 mg Enoxaparin Sodium (Lovenox) 120 mg SC Q12 [facility] Last Admin: 01/02/18 21:32 Dose: 120 mg Sodium Chloride (Sodium Chloride 0.9%) 1,000 mls @ 75 mls/hr IV .[id number] [facility] Last Admin: 01/02/18 11:43 Dose: Not Given Pantoprazole Sodium (Protonix Ec Tab) 40 mg PO BID [facility] Last Admin: 01/02/18 18:24 Dose: 40 mg Potassium Chloride (K-Dur 20 Meq Er Tab) 20 meq PO DAILY [facility] Stop: 01/04/18 10:01 Last Admin: 01/02/18 11:33 Dose: 20 meq Sennosides (Senokot Tab) 8.6 mg PO DAILY [facility] Last Admin: 01/02/18 09:46 Dose: 8.6 mg Tamsulosin HCl (Flomax) 0.4 mg PO DAILY [facility] Last Admin: 01/02/18 09:46 Dose: 0.4 mg - Labs Labs: 01/02/18 06:15 01/03/18 06:09 PT 13.8 SECONDS (9.7-12.2) H 01/02/18 06:15 INR 1.3 01/02/18 06:15 APTT 29 SECONDS (21-34) D 01/02/18 06:15 - Constitutional Appears: Non-toxic, No Acute Distress - Head Exam Head Exam: ATRAUMATIC, NORMOCEPHALIC - Eye Exam Eye Exam: EOMI - ENT Exam ENT Exam: Mucous Membranes Moist - Neck Exam Neck Exam: Full ROM - Respiratory Exam Respiratory Exam: NORMAL BREATHING PATTERN. absent: Accessory Muscle Use, Respiratory Distress - Cardiovascular Exam Cardiovascular Exam: REGULAR RHYTHM - GI/Abdominal Exam GI & Abdominal Exam: Soft. absent: Distended, Firm, Guarding, Rigid, Tenderness , Rebound Additional comments: Incision C/D/I w. santiago - Extremities Exam Extremities Exam: absent: Calf Tenderness, Pedal Edema - Neurological Exam Neurological Exam: Alert, Awake, Oriented x3 Assessment and Plan - Assessment and Plan (Free Text) Assessment: 52M w. strangulated ventral hernia s/p SBR w. primary repair POD#6, complicated by PE, s/p IVCF placement, POD#4 -Will start pt on HHD -c/w lovenox -Encourage OOB and IS use -clear for downgrade from ICU from surgical standpoint -f/u AM labs -d/w attending Gabrielle PGY4
--- NOTE | 2018-01-03 07:40 | CP.PCM.PN ---
Subjective - Date & Time of Evaluation Date of Evaluation: 01/03/18 Time of Evaluation: 07:34 - Subjective Subjective: chart reviewed no events overnight patient seen no complaints aware of being transferred to the floor potassium improved afebrile no pain abdomen no complaints had BM vitals stable Objective - Vital Signs/Intake and Output Vital Signs (last 24 hours): Temp Pulse Resp BP Pulse Ox 99 F 75 19 139/84 98 01/02/18 20:00 01/02/18 20:00 01/02/18 20:00 01/02/18 20:00 01/02/18 20:00 Intake and Output: 01/03/18 01/03/18 06:59 18:59 Intake Total 75 Balance 75 - Medications Medications: Current Medications Docusate Sodium (Colace) 100 mg PO BID [facility] Last Admin: 01/02/18 18:24 Dose: 100 mg Enoxaparin Sodium (Lovenox) 120 mg SC Q12 [facility] Last Admin: 01/02/18 21:32 Dose: 120 mg Sodium Chloride (Sodium Chloride 0.9%) 1,000 mls @ 75 mls/hr IV .[id number] [facility] Last Admin: 01/02/18 11:43 Dose: Not Given Pantoprazole Sodium (Protonix Ec Tab) 40 mg PO BID [facility] Last Admin: 01/02/18 18:24 Dose: 40 mg Potassium Chloride (K-Dur 20 Meq Er Tab) 20 meq PO DAILY [facility] Stop: 01/04/18 10:01 Last Admin: 01/02/18 11:33 Dose: 20 meq Sennosides (Senokot Tab) 8.6 mg PO DAILY [facility] Last Admin: 01/02/18 09:46 Dose: 8.6 mg Tamsulosin HCl (Flomax) 0.4 mg PO DAILY [facility] Last Admin: 01/02/18 09:46 Dose: 0.4 mg - Labs Labs: 01/02/18 06:15 01/03/18 06:09 PT 13.8 SECONDS (9.7-12.2) H 01/02/18 06:15 INR 1.3 01/02/18 06:15 APTT 29 SECONDS (21-34) D 01/02/18 06:15 - Constitutional Appears: Non-toxic, No Acute Distress - Head Exam Head Exam: ATRAUMATIC, NORMOCEPHALIC - Eye Exam Eye Exam: Normal appearance - ENT Exam ENT Exam: Mucous Membranes Moist - Neck Exam Neck Exam: Full ROM - Respiratory Exam Respiratory Exam: Clear to Ausculation Bilateral, NORMAL BREATHING PATTERN - Cardiovascular Exam Cardiovascular Exam: REGULAR RHYTHM - GI/Abdominal Exam GI & Abdominal Exam: Soft, Normal Bowel Sounds (site exposed no sign of inflammation) - Extremities Exam Extremities Exam: Full ROM. absent: Pedal Edema - Back Exam Back Exam: Full ROM. absent: rash noted - Neurological Exam Neurological Exam: Alert, Awake, Normal Gait, Oriented x3 - Psychiatric Exam Psychiatric exam: Normal Affect, Normal Mood - Skin Skin Exam: Intact, Normal Color Assessment and Plan - Assessment and Plan (Free Text) Assessment: Patient with PE-on treatment - Lovenox-to Eliquis stable to floor Post abdominal surgery for Incarcerated hernia with resection , with BM, advancing diets ARF resolved Hypotension resolved Dehydration resolved History of hypertension- off meds due to above- currently BP is controlled- further monitoring HypoKalemia- resolved Debility PT Elevated troponins -possibly from above metabolic changes- discussed with cardio - no further cardio work up at this time
[2018-01-03] MEDS: Pantoprazole 40 mg EC Tab PO SCH (09:51)
[2018-01-03 11:48] VITALS: RESP 20
--- NOTE | 2018-01-03 16:54 | VASCLAB ---
Date of service: 01/03/2018 PROCEDURE: Right Upper Extremity Venous Duplex Exam HISTORY: swollen right arm PRIORS: None. TECHNIQUE: Right upper extremity, internal jugular, subclavian, axillary, brachial, ulnar, radial, basilic and upper cephalic veins were evaluated. Flow was assessed with color Doppler, compressibility, assessment of phasic flow and augmentation response. Report prepared by Pietro Manley, JOE, RVT FINDINGS: RIGHT: 1. Internal Jugular: 1.1. Compressibility - Fully compressible: Thrombus - None : Flow - Phasic: Augmentation -Normal: Reflux - None. 2. Subclavian: 2.1. Compressibility - Fully compressible: Thrombus - None : Flow - Phasic: Augmentation -Normal: Reflux - None. 3. Axillary: 3.1. Compressibility - Fully compressible: Thrombus - None : Flow - Phasic: Augmentation -Normal: Reflux - None. 4. Brachial: 4.1. Compressibility - Fully compressible: Thrombus - None: Flow - Phasic: Augmentation -Normal: Reflux - None. 5. Ulnar: 5.1. Compressibility - Fully compressible: Thrombus - None: Flow - Phasic: Augmentation -Normal: Reflux - None. 6. Radial: 6.1. Compressibility - Fully compressible: Thrombus - None: Flow - Phasic: Augmentation - Normal: Reflux - None. 7. Cephalic: 7.1. Compressibility - Partial: Thrombus - Acute: Flow - Absent : Augmentation -None: Reflux - None. 8. Basilic: 8.1. Compressibility - Partial: Thrombus - Acute: Flow - Reduced : Augmentation -Reduced: Reflux - None. OTHER FINDINGS: Right: PAYAL Arshad notified about the findings. IMPRESSION: Right: Acute thrombosis of the right cephalic and basilic veins with severe reduction of the venous return. Normal venous flow noted in the left internal jugular and left subclavian veins.
--- NOTE | 2018-01-03 23:05 | CP.PCM.PN ---
Subjective - Date & Time of Evaluation Date of Evaluation: 01/03/18 Time of Evaluation: 18:25 - Subjective Subjective: Patient seen and evaluated denies chest pain and dyspnea Objective - Vital Signs/Intake and Output Vital Signs (last 24 hours): Temp Pulse Resp BP Pulse Ox 99.5 F 75 20 138/78 98 01/03/18 16:19 01/03/18 16:19 01/03/18 16:19 01/03/18 16:19 01/03/18 16:19 Intake and Output: 01/03/18 01/04/18 18:59 06:59 Intake Total 525 400 Output Total 400 50 Balance 125 350 - Medications Medications: Current Medications Apixaban (Eliquis) 10 mg PO BID [facility] Last Admin: 01/03/18 17:02 Dose: 10 mg Docusate Sodium (Colace) 100 mg PO BID [facility] Last Admin: 01/03/18 17:02 Dose: 100 mg Pantoprazole Sodium (Protonix Ec Tab) 40 mg PO DAILY [facility] Last Admin: 01/03/18 09:51 Dose: 40 mg Tamsulosin HCl (Flomax) 0.4 mg PO DAILY [facility] Last Admin: 01/03/18 09:51 Dose: 0.4 mg - Labs Labs: 01/02/18 06:15 01/03/18 06:09 PT 13.8 SECONDS (9.7-12.2) H 01/02/18 06:15 INR 1.3 01/02/18 06:15 APTT 29 SECONDS (21-34) D 01/02/18 06:15
[2018-01-04 07:46] VITALS: BP 136/72; PULSE 82; TEMP 98.6; O2SAT 98
--- NOTE | 2018-01-04 08:41 | CP.PCM.PN ---
Subjective - Date & Time of Evaluation Date of Evaluation: 01/04/18 Time of Evaluation: 08:38 - Subjective Subjective: patient seen transferred to floor uneventful overnight had swelling LUE and US showed thrombus subclavian. discussed with Dr Martinez on Eliquis Disciussion with patient stable no complaints wants to go home with BM Urine normal ambulates Objective - Vital Signs/Intake and Output Vital Signs (last 24 hours): Temp Pulse Resp BP Pulse Ox 98.6 F 82 20 136/72 98 01/04/18 07:44 01/04/18 07:44 01/04/18 07:44 01/04/18 07:44 01/04/18 07:44 Intake and Output: 01/04/18 01/04/18 06:59 18:59 Intake Total 640 Output Total 50 Balance 590 - Medications Medications: Current Medications Apixaban (Eliquis) 10 mg PO BID [facility] Last Admin: 01/03/18 17:02 Dose: 10 mg Docusate Sodium (Colace) 100 mg PO BID [facility] Last Admin: 01/03/18 17:02 Dose: 100 mg Pantoprazole Sodium (Protonix Ec Tab) 40 mg PO DAILY [facility] Last Admin: 01/03/18 09:51 Dose: 40 mg Tamsulosin HCl (Flomax) 0.4 mg PO DAILY [facility] Last Admin: 01/03/18 09:51 Dose: 0.4 mg - Labs Labs: 01/02/18 06:15 01/03/18 06:09 PT 13.8 SECONDS (9.7-12.2) H 01/02/18 06:15 INR 1.3 01/02/18 06:15 APTT 29 SECONDS (21-34) D 01/02/18 06:15 - Constitutional Appears: Well, No Acute Distress - Head Exam Head Exam: ATRAUMATIC, NORMOCEPHALIC - Eye Exam Eye Exam: Normal appearance. absent: Nystagmus - ENT Exam ENT Exam: Mucous Membranes Moist - Respiratory Exam Respiratory Exam: Clear to Ausculation Bilateral, NORMAL BREATHING PATTERN - Cardiovascular Exam Cardiovascular Exam: REGULAR RHYTHM - GI/Abdominal Exam GI & Abdominal Exam: Soft, Normal Bowel Sounds (, abdomen surgical site looks good ) - Neurological Exam Neurological Exam: Alert, Awake, Normal Gait, Oriented x3 - Skin Skin Exam: Intact, Normal Color Assessment and Plan - Assessment and Plan (Free Text) Plan: Patient with improving condition Post surgeryt for incarcerated abdominal hernoia improved food intake with no GI symptoms ambulatory PE noted RUE subclavian thrombus on Eliquis further discussion with patient off bp meds for hypertension to monitor follow up in clinic next week along with surgery patient aware of condition and further plan as out patient
[2018-01-04] MEDS: Pantoprazole 40 mg EC Tab PO SCH (09:38)
[2018-01-04] MEDS ORDERED: Pneumococcal 23-Valent Vaccine IM ONE (10:14)
--- NOTE | 2018-01-04 13:52 | CP.PCM.DIS ---
Provider - Provider Date of Admission: 12/28/17 19:59 Attending physician: Johana Hart MD Time Spent in preparation of Discharge (in minutes): 30 Hospital Course - Lab Results Lab Results: Micro Results 12/30/17 03:38 Blood-Venous Blood Culture - Final NO GROWTH AFTER 5 DAYS 12/30/17 03:38 Blood-Venous Gram Stain - Final TEST NOT PERFORMED 12/30/17 03:38 Blood-Venous Blood Culture - Final NO GROWTH AFTER 5 DAYS 12/30/17 03:38 Blood-Venous Gram Stain - Final TEST NOT PERFORMED 12/28/17 22:42 Ascitic Fluid Gram Stain - Final 12/28/17 22:42 Ascitic Fluid Body Fluid Culture - Final No growth. 12/29/17 16:00 Naris MRSA Culture - Final MRSA NOT DETECTED 12/29/17 06:31 Nose MRSA Culture (Admit) - Final MRSA NOT DETECTED Most Recent Lab Values WBC 10.6 K/uL (4.8-10.8) 01/02/18 06:15 RBC 3.82 Mil/uL (4.40-5.90) L 01/02/18 06:15 Hgb 12.0 g/dL (12.0-18.0) 01/02/18 06:15 Hct 34.9 % (35.0-51.0) L 01/02/18 06:15 MCV 91.6 fL (80.0-94.0) 01/02/18 06:15 MCH 31.6 pg (27.0-31.0) H 01/02/18 06:15 MCHC 34.5 g/dL (33.0-37.0) 01/02/18 06:15 RDW 13.2 % (11.5-14.5) 01/02/18 06:15 Plt Count 260 K/uL (130-400) 01/02/18 06:15 MPV 8.0 fL (7.2-11.7) 01/02/18 06:15 Neut % (Auto) 82.7 % (50.0-75.0) H 01/02/18 06:15 Lymph % (Auto) 6.2 % (20.0-40.0) L 01/02/18 06:15 [place] % (Auto) 7.6 % (0.0-10.0) 01/02/18 06:15 Eos % (Auto) 3.3 % (0.0-4.0) 01/02/18 06:15 Baso % (Auto) 0.2 % (0.0-2.0) 01/02/18 06:15 Neut # (Auto) 8.8 K/uL (1.8-7.0) H 01/02/18 06:15 Lymph # (Auto) 0.7 K/uL (1.0-4.3) L 01/02/18 06:15 [place] # (Auto) 0.8 K/uL (0.0-0.8) 01/02/18 06:15 Eos # (Auto) 0.3 K/uL (0.0-0.7) 01/02/18 06:15 Baso # (Auto) 0.0 K/uL (0.0-0.2) 01/02/18 06:15 Neutrophils % (Manual) 84 % (50-75) H 01/02/18 06:15 Band Neutrophils % 2 % (0-2) 01/02/18 06:15 Lymphocytes % (Manual) 4 % (20-40) L 01/02/18 06:15 Reactive Lymphs % 1 % (0-0) H 12/31/17 06:31 Monocytes % (Manual) 6 % (0-10) 01/02/18 06:15 Eosinophils % (Manual) 4 % (0-4) 01/02/18 06:15 Platelet Estimate Normal (NORMAL) 01/02/18 06:15 Plt Clumps, EDTA Present 12/28/17 23:18 RBC Morphology Normal 01/02/18 06:15 PT 13.8 SECONDS (9.7-12.2) H 01/02/18 06:15 INR 1.3 01/02/18 06:15 APTT 29 SECONDS (21-34) D 01/02/18 06:15 Puncture Site Lba 12/29/17 16:23 pCO2 40 mm/Hg (35-45) 12/29/17 16:23 pO2 72 mm/Hg (80-100) L 12/29/17 16:23 HCO3 31.2 mmol/L (21-28) H 12/29/17 16:23 ABG pH 7.51 (7.35-7.45) H 12/29/17 16:23 ABG Total CO2 33.1 mmol/L (22-28) H 12/29/17 16:23 ABG O2 Saturation 97.4 % (95-98) 12/29/17 16:23 ABG Base Excess 8.2 mmol/L (-2.0-3.0) H 12/29/17 16:23 ABG Hemoglobin 13.5 g/dL (11.7-17.4) 12/29/17 16: ABG Carboxyhemoglobin 2.8 % (0.5-1.5) H 12/29/17 16:23 POC ABG HHb (Measured) 2.5 % (0.0-5.0) 12/29/17 16: ABG Methemoglobin 1.2 % (0.0-3.0) 12/29/17 16: Ruddy Test Pos 12/29/17 16:23 Hgb O2 Saturation 93.5 % (95.0-98.0) L 12/29/17 16: Liter Flow 4.0 12/29/17 16:23 Sodium 138 mmol/L (132-148) 01/03/18 06:09 Potassium 3.7 mmol/L (3.6-5.2) 01/03/18 06:09 Chloride 104 mmol/L (98-107) 01/03/18 06:09 Carbon Dioxide 26 mmol/L (22-30) 01/03/18 06:09 Anion Gap 12 (10-20) 01/03/18 06:09 BUN 12 mg/dL (9-20) 01/03/18 06:09 Creatinine 1.0 mg/dL (0.8-1.5) 01/03/18 06:09 Est GFR ( Amer) > 60 01/03/18 06:09 Est GFR (Non-Af Amer) > 60 01/03/18 06:09 Random Glucose 90 mg/dL (75-110) 01/03/18 06:09 Lactic Acid 0.8 mmol/L (0.7-2.1) 12/30/17 03:38 Calcium 8.3 mg/dl (8.6-10.4) L 01/03/18 06:09 Phosphorus 2.4 mg/dL (2.5-4.5) L 01/02/18 06:15 Magnesium 2.1 mg/dL (1.6-2.3) 01/02/18 06:15 Total Bilirubin 0.8 mg/dL (0.2-1.3) 01/02/18 06:15 AST 72 U/L (17-59) H D 01/02/18 06:15 ALT 88 U/L (21-72) H D 01/02/18 06:15 Alkaline Phosphatase 57 U/L (38-126) 01/02/18 06:15 Total Creatine Kinase 166 U/L (55-170) 12/30/17 03:38 CK-MB (Mass) 1.02 ng/mL (0.0-3.38) 12/30/17 03:38 Troponin I 0.1420 ng/mL (0.00-0.120) H* 12/30/17 03:38 NT-Pro-B Natriuret Pep 67.0 pg/mL (0-900) 12/29/17 19:43 Total Protein 5.8 g/dL (6.3-8.3) L 01/02/18 06:15 Albumin 3.0 g/dL (3.5-5.0) L 01/02/18 06:15 Globulin 2.8 gm/dL (2.2-3.9) 01/02/18 06:15 Albumin/Globulin Ratio 1.0 (1.0-2.1) 01/02/18 06:15 Lipase 102 U/L (23-300) 12/28/17 18:39 Urine Color Yellow (YELLOW) 12/29/17 20:05 Urine Clarity Clear (Clear) 12/29/17 20:05 Urine pH 5.0 (5.0-8.0) 12/29/17 20:05 Ur Specific [place] 1.021 (1.003-1.030) 12/29/17 20:05 Urine Protein Negative mg/dL (NEGATIVE) 12/29/17 20:05 Urine Glucose (UA) Normal mg/dL (Normal) 12/29/17 20:05 Urine Ketones Negative mg/dL (NEGATIVE) 12/29/17 20:05 Urine Blood Negative (NEGATIVE) 12/29/17 20:05 Urine Nitrate Negative (NEGATIVE) 12/29/17 20:05 Urine Bilirubin Negative (NEGATIVE) 12/29/17 20:05 Urine Urobilinogen Normal mg/dL (0.2-1.0) 12/29/17 20:05 Ur Leukocyte Esterase Neg Teresa/uL (Negative) 12/29/17 20:05 Urine WBC (Auto) 4 /hpf (0-5) 12/29/17 20:05 Urine RBC (Auto) < 1 /hpf (0-3) 12/29/17 20:05 Ur Squamous Epith Cells < 1 /hpf (0-5) 12/29/17 20:05 Ur Random Creatinine 210.9 mg/dL 12/29/17 20:05 Ur Random Sodium 39 mmol/L 12/29/17 20:05 Ur Random Phosphorus 108.3 mg/dL 12/29/17 20:05 Ur Random Uric Acid 98.3 mg/dL 12/29/17 20:05 Ur Random Glucose < 20 mg/dL 12/29/17 20:05 Ur Random Calcium < 1.0 mg/dL 12/29/17 20:05 Urine Opiates Screen Positive (NEGATIVE) H 12/29/17 20:05 Urine Methadone Screen Negative (NEGATIVE) 12/29/17 20:05 Ur Barbiturates Screen Negative (NEGATIVE) 12/29/17 20:05 Ur Phencyclidine Scrn Negative (NEGATIVE) 12/29/17 20:05 Ur Amphetamines Screen Negative (NEGATIVE) 12/29/17 20:05 U Benzodiazepines Scrn Negative (NEGATIVE) 12/29/17 20:05 U Oth Cocaine Metabols Negative (NEGATIVE) 12/29/17 20:05 U Cannabinoids Screen Negative (NEGATIVE) 12/29/17 20:05 Blood Type B POSITIVE 12/28/17 20:02 Antibody Screen Negative 12/28/17 20:02 - Hospital Course Hospital Course: admitted for abdominal pain vomiting with hypotension dehydration acute renal failure with incarceray=mickey abdominl henia, patient is awake alert denies other complaints like syncope shortness of breath chest pain, patient placed on hydration, surgery called and underwent surgery for the repair and resction of SBO,taken cared at ICU improved transferred to floor developed hypotensive episode with no breathing problem- gound to have PE - placed on PE protocol and IVFilter placed- patient improved slowly, potassium replaced, had complained of swelling in the right arm that shoed superficial thrombus . patient has been on Eliquis 10 BID and will continue . patient improved .and planned for home Discharge Exam - Head Exam Head Exam: ATRAUMATIC, NORMOCEPHALIC - Eye Exam Eye Exam: Normal appearance - ENT Exam ENT Exam: Mucous Membranes Moist - Neck Exam Neck exam: Full Rom - Respiratory Exam Respiratory Exam: Clear to PA & Lateral, NORMAL BREATHING PATTERN - Cardiovascular Exam Cardiovascular Exam: REGULAR RHYTHM - GI/Abdominal Exam GI & Abdominal Exam: Normal Bowel Sounds. absent: Tenderness (abdomen good healing ) - Extremities Exam Extremities exam: full ROM ( swelling right UE, ROM normal) - Back Exam Back exam: FULL ROM. absent: rash noted - Neurological Exam Neurological exam: Alert, Normal Gait, Oriented x3 - Psychiatric Exam Psychiatric exam: Normal Affect, Normal Mood - Skin Skin Exam: Intact, Normal Color Discharge Plan - Follow Up Plan Condition: GOOD Disposition: HOME/ ROUTINE Instructions: Pulmonary Embolism (Blood Clot in the Lungs) (DC), Abdominal Hernia (DC), Abdominal Hernia Repair (DC), Apixaban, Vena Cava Filter Placement , Omeprazole Referrals: Johana Hart MD [Medical Doctor] - Hung Dumont Jr., MD [Staff Provider] -
== END 2018-01-04 10:50 | disposition home or self-care (01) | DRG 329 ==
LOC: C.ER 17:59 → C.9I 19:59 → C.6T 12-29 15:14 → C.9I 12-29 21:28 → C.3T 01-03 11:40
PROVIDERS: ADMIT Internal Medicine; ATTEND Internal Medicine
PROC: 0DT80ZZ Resection of Small Intestine, Open Approach (ICD-10-PCS; 2017-12-28)
PROC: 0WQF0ZZ Repair Abdominal Wall, Open Approach (ICD-10-PCS; principal; 2017-12-28 20:00)
PROC: 06H03DZ Insertion of Intraluminal Device into Inferior Vena Cava, Percutaneous Approach (ICD-10-PCS; 2017-12-30)
DX: K43.6 Other and unspecified ventral hernia with obstruction, without gangrene (principal); K55.029 Acute infarction of small intestine, extent unspecified; I26.92 Saddle embolus of pulmonary artery without acute cor pulmonale; I82.621 Acute embolism and thrombosis of deep veins of right upper extremity; N17.9 Acute kidney failure, unspecified; E86.0 Dehydration; E87.6 Hypokalemia; I10 Essential (primary) hypertension; D72.829 Elevated white blood cell count, unspecified; I27.20 Pulmonary hypertension, unspecified; I95.9 Hypotension, unspecified